=== PATIENT | male | born 1950 | race Caucasian/White ===

== ENCOUNTER 2020-10-04 14:12 | Outpatient (REF) | payer MEDICARE, SELFPAY ==
[2020-10-04 14:51] LABS: Creatinine Urine 184.29 mg/dL; Microalbum/Creatinine Ratio Ur 6.5 ug/mg cr
== END 2020-10-04 14:13 | disposition home or self-care (01) ==
LOC: HO.LNP 14:12
PROVIDERS: Visit Provider Family Medicine
DX: Z00.00 Encounter for general adult medical examination without abnormal findings (principal); E78.5 Hyperlipidemia, unspecified; L57.0 Actinic keratosis; R41.3 Other amnesia; Z12.5 Encounter for screening for malignant neoplasm of prostate
CPT/HCPCS: 82043

== ENCOUNTER → 2020-11-22 09:09 | Outpatient (BNVA) | payer MEDICARE, SELFPAY | PROVIDERS: PCP Family Medicine; Visit Provider Physician Assistant | DX: Z12.11 Encounter for screening for malignant neoplasm of colon (principal) | CPT/HCPCS: Q3014 ==

== ENCOUNTER 2021-01-15 11:52 | Outpatient (REF) | payer MEDICARE, SELFPAY ==
[2021-01-15 12:59] LABS: Creatinine Urine 172.25 mg/dL; Microalbum/Creatinine Ratio Ur 7.5 ug/mg cr
== END 2021-01-15 11:53 | disposition home or self-care (01) ==
LOC: HO.LNP 11:52
PROVIDERS: Visit Provider Family Medicine
DX: E11.9 Type 2 diabetes mellitus without complications (principal); I10 Essential (primary) hypertension
CPT/HCPCS: 82043

== ENCOUNTER 2021-01-17 07:45 | Day surgery (SDC) | payer MEDICARE, SELFPAY ==
[2021-01-11 09:52] VITALS: BMI 32.6
--- NOTE | 2021-01-17 08:56 | P.CONAN_ITS ---
HPI - Anesthesia Eval Consult details Narrative: 70 year old patient for EGD and Colonoscopy PMF Active Problems Active Problems: All Active Problems (Updated 01/16/21 @ 11:49 by Erica Crump RN) Essential hypertension (Acute) Diabetes type 2, controlled (Acute) Hyperlipidemia (Acute) Laboratory examination ordered as part of a routine general medical examination (Acute) Screening for prostate cancer (Acute) Actinic keratosis (Acute) Memory changes (Acute) Screening for colon cancer (Acute) Adult general medical exam (Acute) Past Medical History Medical History Diabetes Elevated cholesterol Encounter for screening GERD (gastroesophageal reflux disease) HTN (hypertension) Family History Family History Mother Lung cancer Family history of problems with anesthesia: No Surgical History Surgical History H/O colonoscopy History of appendectomy History of Problems with Anesthesia: No Social History Social History Household Members: Spouse Smoking Status: Never smoker Advance Directives Information Provided: No Current occupational status: retired Current occupation: [employer] Allergies Allergy/AdvReac Type Severity Reaction Status Date / Time No Known Allergies Allergy Verified 01/17/21 09:08 Home Medications Medication Instructions Recorded Confirmed Last Taken Type aspirin 81 mg tablet,delayed 81 mg PO DAILY 10/04/20 01/11/21 Unknown History release flu vacc [id number](65yr up)-PF 240 ml IM 10/04/20 11/22/20 Unknown History mcg/0.7 mL intramuscular syringe metformin 500 mg tablet,extended 1,000 mg PO BID 10/04/20 01/11/21 Unknown History release 24 hr pen needle, diabetic 31 gauge x #1200 ea 10/04/20 11/22/20 Unknown History /16 famotidine 20 mg tablet 20 mg PO BEDTIME 10/17/20 01/11/21 Unknown History multivitamin 1 tab PO DAILY 01/15/21 Unknown History Exam Exam Date and Time: January 17, 2021 0856 Height,Weight and Vital Signs: Height 5 ft 10 in Weight 103.192 kg Vital Signs Temp Pulse Resp BP Pulse Ox 01/17/21 09:09 97.6 F 85 16 150/82 H 96 Pertinent Lab Results Pertinent Lab Results: Lab Results 01/17/21 Range/Units 09:15 POC Glucose 122 H (60-115) mg/dL Airway Mallampati Class: II TM Dist: >3cm Neck ROM: Full Denture: Upper and Lower Heart: RRR Lungs: CTAB Assessment and Plan Assessment Anesthesia Assessment: Anesthesia Plan Discussed and Chart Reviewed Final Anesthetic Review NPO: Yes ASA Class: II Final Preanesthetic Review: No Changes in Pt Med Stat, Meds/Allgs Chart Revie wed, Consent Obtained/Reviewed and Anes Risks/Benef Reviewed Patient Risk: Intermediate Procedure Risk: Low Assessment/Block/Sedation in SS: Assess/Block/Sedation-SS Anesthetic Plan Anesthetic Plan: MAC: Disposition: Standard PACU
[2021-01-17 09:09] VITALS: BP 150/82; PULSE 85; RESP 16; TEMP 36.4; O2SAT 96
[2021-01-17] MEDS: Lactated Ringers 1,000 ML 100 ML IVCONT (09:16)
[2021-01-17 09:17] LABS: Glucose, Whole Blood 122 mg/dL (60-115)
--- NOTE | 2021-01-17 09:19 | MHC.SHP ---
Pre-Procedural Eval Section B Chief Complaint: screening,barretts Relevant Family History (Specify if Yes): No Relevant Social History: None Present Medications: see Short Stay Collaborative assessment Medical History: Significant History (Diabetes Elevated cholesterol Encounter for screening GERD (gastroesophageal reflux disease) HTN (hypertension)) History of Previous Operations: Relevant previous surgery/procedure and date(s) (appendectomy) Allergies: Allergies Allergy/AdvReac Type Severity Reaction Status Date / Time No Known Allergies Allergy Verified 01/17/21 09:08 Review of Systems Sugical H&P ROS: Negative: Constitution, Cardiovascular, Respiratory, Neurological, Psychiatric, Hem-Onc, Allergic/Immunologic, Gastrointestinal, Genitourinary, Musculoskeletal, Integumentary, Endocrine and Eyes/Ears/Nose/Throat Exam Surgical H&P Exam: Normal: HEENT, Normal: Heart, Normal: Lungs, Normal: Extremities, Normal: Abdomen, Normal: Skin and Normal: Neurological Plan Diagnosis/Plan: Unchanged I have reviewed the history and physical and performed a pertinent physical examination on my patient. No changes have occurred unless specified.
--- NOTE | 2021-01-17 09:38 | PM.OP ---
Brief Operative Note Date of Service: 01/17/21 Pre-op diagnosis: gerd, colon screen Post-op diagnosis: same Procedure: see op note Surgeon: Drake Giraldo MD Anesthesia: MAC Estimated blood loss (mL): 0 Condition: stable Disposition: PACU
--- NOTE | 2021-01-17 09:45 | W.PM.OPN ---
Operative Note Operative Note Date of Service: 01/17/21 Narrative: Operative Information Procedure Description: EGD, Colonoscopy FLEXIBLE TRANSORAL UPPER GASTROINTESTINAL ENDOSCOPY AND COLONOSCOPY PROCEDURE NOTE UPPER ENDOSCOPY Consent: Indications for the procedure and potential complications of bleeding, perforation, reaction to medications and missed diagnosis were discussed with the patient and informed consent was obtained. Instrument: Olympus GIF H 190 J mid size upper endoscope Monitoring: Vital signs and clinical assessment, continuous EKG monitoring, Pulse oximetry, Carbon Dioxide monitoring and blood pressure monitoring were done throughout the procedure. Procedure: The patient was placed in the left lateral decubitis position and pre-procedure medications were administered and a bite block was placed. The endoscope was inserted into the mouth and advanced under direct vision to the third part of duodenum. A careful inspection was made as the upper endoscope was withdrawn including a retroflexed examination of the proximal stomach; Findings and interventions are described below. Findings: Larynx:normal Esophagus: GE junction at 38 cm, diaphragm hiatus at 38 cm, normal mucosa Stomach: Erosive gastritis at antrum with granular mucosa. Biopsies were obtained. Grade 2 flap valve on retroflexed examination of the cardia. Duodenum: extensive moderate severe erosive duodenitis extending into second part of duodenum Intervention: Biopsies as noted above COLONOSCOPY Instrument: Olympus variable stiffness pediatric scope 190L Colonoscopy Monitoring: Vital signs and clinical assessment, continuous EKG monitoring, Pulse oximetry, Carbon Dioxide monitoring and blood pressure monitoring were done throughout the procedure. Colon withdrawal time was 12 minutes. Procedure: The patient was placed in the left lateral decubitis position and pre-procedure medications were administered. After a digital rectal examination of the ano-rectum, the video colonoscope was inserted into the rectum and advanced through the colon to the cecum/TI. The colonoscope was slowly withdrawn in a retrograde panoramic fashion and the colon mucosa was carefully examined including a retroflexed view of the rectum. Findings and interventions are described below. Procedure Difficulty:moderate, pressure applied using 2 people to mid abdomen and RLQ Findings: Terminal Ileum-not intubated due to looping Cecum:normal Ascending Colon: x 2 sessile polyps removed size from 5-11 mm, x 1 removed with cold snare and x 1 with forceps Transverse Colon -normal Descending Colon:normal Sigmoid Colon: x 3 sessile polyps 9-10 mm removed with cold snare Rectum: Retroflexion with small internal hemorrhoids, grade I Anorectum - normal Colon preparation: [place] Bowel Preparation Scale Right colon; 2 Transverse colon: 2 Left colon; 1 (0 = Unprepared colon segment with mucosa not seen due to solid stool that cannot be cleared. 1 = Portion of mucosa of the colon segment seen, but other areas of the colon segment not well seen due to staining, residual stool and/or opaque liquid. 2 = Minor amount of residual staining, small fragments of stool and/or opaque liquid, but mucosa of colon segment seen well. 3 = Entire mucosa of colon segment seen well with no residual staining, small fragments of stool or opaque liquid) Impression and Post Procedure Diagnosis: Endoscopy Findings: erosive gastritis erosive duodenitis Colonoscopy Findings: polyps internal hemorrhoids Plan: Await Pathology results Repeat Colonoscopy in 1-2 years due to prep or earlier if clinically indicated High fiber diet leaflet avoid straining at stool, epsom salts and sitz bath, anusol supps or cream as needed gastric damage maybe from aspirin, if h pylori pos will treat, meantime change famotidine to pantoprazole 20 mg daily Above findings were reviewed with the patient and relevant handouts were provided if indicated.
[2021-01-17 10:25] VITALS: BP 109/68; PULSE 73; RESP 16; TEMP 36.5; O2SAT 99
[2021-01-17 10:45] VITALS: BP 116/61; PULSE 81; RESP 20; O2SAT 95
[2021-01-17 11:00] VITALS: BP 129/73; PULSE 80; RESP 20; O2SAT 95
[2021-01-17 11:15] VITALS: BP 129/73; PULSE 80; RESP 20; TEMP 36.1; O2SAT 95
== END 2021-01-17 11:35 | disposition home or self-care (01) ==
PROVIDERS: PCP Family Medicine; Visit Provider Internal Medicine Gastroenterology
PROC: (CPT 45385; principal; 2021-01-17 09:10)
DX: Z12.11 Encounter for screening for malignant neoplasm of colon (principal); Z86.010 Personal history of colon polyps; D12.2 Benign neoplasm of ascending colon; D12.5 Benign neoplasm of sigmoid colon; K64.0 First degree hemorrhoids; K22.70 Barrett's esophagus without dysplasia; K29.50 Unspecified chronic gastritis without bleeding; B96.81 Helicobacter pylori [H. pylori] as the cause of diseases classified elsewhere; K29.80 Duodenitis without bleeding; K44.9 Diaphragmatic hernia without obstruction or gangrene; K21.9 Gastro-esophageal reflux disease without esophagitis; I10 Essential (primary) hypertension; E11.9 Type 2 diabetes mellitus without complications; Z79.4 Long term (current) use of insulin; Z79.82 Long term (current) use of aspirin; Z79.899 Other long term (current) drug therapy
CPT/HCPCS: 45385; 45380; 43239; 82947; 88305; 88342

== ENCOUNTER → 2021-02-07 10:43 | Outpatient (BNVA) | payer MEDICARE, SELFPAY | PROVIDERS: Visit Provider Physician Assistant | DX: D12.6 Benign neoplasm of colon, unspecified (principal); A04.8 Other specified bacterial intestinal infections; D36.9 Benign neoplasm, unspecified site | CPT/HCPCS: 99212 ==

== ENCOUNTER 2021-03-12 09:19 | Outpatient (REF) | payer MEDICARE, SELFPAY | END 2021-03-12 09:20 | disposition home or self-care (01) | LOC: HO.WFDLDS 09:19 | PROVIDERS: Visit Provider Physician Assistant | DX: A04.8 Other specified bacterial intestinal infections (principal) | CPT/HCPCS: 87338 ==

== ENCOUNTER 2021-04-11 08:25 | Outpatient (REF) | payer MEDICARE, SELFPAY ==
[2021-04-11 11:29] LABS: Estimated Average Glucose 157 mg/dL; Hemoglobin A1c % 7.1 %
[2021-04-11 11:45] LABS: Alanine Aminotransferase 27 U/L (0-40); Albumin Level 4.4 g/dL (3.5-5.0); Alkaline Phosphatase 49 U/L (39-117); Anion Gap 13 (12-20); Aspartate Amino Transferase 23 U/L (5-37); Bilirubin Total 1.1 mg/dL (0.0-1.0); Blood Urea Nitrogen 24 mg/dL (9-16); Calcium 9.5 mg/dL (8.4-10.2); Carbon Dioxide 29 mmol/L (22-29); Chloride 102 mmol/L (96-108); Estimated Glomerular Filt Rate > 60; Glucose Fasting 180 mg/dL (60-99); Potassium 4.4 mmol/L (3.3-5.1); Sodium 140 mmol/L (135-145); Total Protein 6.6 g/dL (6.5-8.0)
== END 2021-04-11 08:26 | disposition home or self-care (01) ==
LOC: HO.WFDLDS 08:25
PROVIDERS: Visit Provider Family Medicine
DX: Z00.00 Encounter for general adult medical examination without abnormal findings (principal); E11.9 Type 2 diabetes mellitus without complications
CPT/HCPCS: 36415; 80053; 83036

== ENCOUNTER 2021-10-21 07:02 | Outpatient (REF) | payer MEDICARE, SELFPAY ==
--- NOTE | ~2021-10-21 | XR_ITS ---
EXAMINATION: RIGHT SHOULDER, RIGHT HUMERUS AND RIGHT ELBOW X-RAYS CLINICAL INFORMATION: Right elbow pain. COMPARISON: None TECHNIQUE: 4 views of the right shoulder, 2 views of the right humerus and 3 views of the right elbow. FINDINGS: RIGHT SHOULDER: Bone alignment is normal. No acute fracture or dislocation is seen. The glenohumeral joint is normal. There is mild arthritis at the acromioclavicular joint. Soft tissues are normal. There is an old right fifth rib fracture. Right humerus: Bone alignment is normal. No fracture or dislocation is seen. Joint spaces and soft tissues are normal. Right elbow: Bone alignment is normal. No fracture or dislocation is seen. The joint spaces are normal. There is no joint effusion. There is an osteophyte projecting off the medial humeral epicondyle questionable for old epicondylitis. XR/XR elbow RT 2V IMPRESSION: No acute fracture or dislocation seen. Mild arthritis at the acromioclavicular joint. Osteophyte projecting off the medial humeral epicondyle questionable for evidence of old epicondylitis.
--- NOTE | ~2021-10-21 | XR_ITS ---
EXAMINATION: XR CHEST CLINICAL INFORMATION: Other abnormalities of breathing COMPARISON: None TECHNIQUE: 2 views of the chest were obtained. FINDINGS: The cardiac and mediastinal contours are normal. The lung volumes are low. The lungs are clear. There is no pleural effusion or pneumothorax. There are degenerative changes of the spine. There is an old right fifth rib fracture. XR/XR chest 2V IMPRESSION: Low lung volumes. No evidence for acute disease in the chest.
--- NOTE | ~2021-10-21 | XR_ITS ---
EXAMINATION: RIGHT SHOULDER, RIGHT HUMERUS AND RIGHT ELBOW X-RAYS CLINICAL INFORMATION: Right elbow pain. COMPARISON: None TECHNIQUE: 4 views of the right shoulder, 2 views of the right humerus and 3 views of the right elbow. FINDINGS: RIGHT SHOULDER: Bone alignment is normal. No acute fracture or dislocation is seen. The glenohumeral joint is normal. There is mild arthritis at the acromioclavicular joint. Soft tissues are normal. There is an old right fifth rib fracture. Right humerus: Bone alignment is normal. No fracture or dislocation is seen. Joint spaces and soft tissues are normal. Right elbow: Bone alignment is normal. No fracture or dislocation is seen. The joint spaces are normal. There is no joint effusion. There is an osteophyte projecting off the medial humeral epicondyle questionable for old epicondylitis. XR/XR humerus RT IMPRESSION: No acute fracture or dislocation seen. Mild arthritis at the acromioclavicular joint. Osteophyte projecting off the medial humeral epicondyle questionable for evidence of old epicondylitis.
--- NOTE | ~2021-10-21 | XR_ITS ---
EXAMINATION: RIGHT SHOULDER, RIGHT HUMERUS AND RIGHT ELBOW X-RAYS CLINICAL INFORMATION: Right elbow pain. COMPARISON: None TECHNIQUE: 4 views of the right shoulder, 2 views of the right humerus and 3 views of the right elbow. FINDINGS: RIGHT SHOULDER: Bone alignment is normal. No acute fracture or dislocation is seen. The glenohumeral joint is normal. There is mild arthritis at the acromioclavicular joint. Soft tissues are normal. There is an old right fifth rib fracture. Right humerus: Bone alignment is normal. No fracture or dislocation is seen. Joint spaces and soft tissues are normal. Right elbow: Bone alignment is normal. No fracture or dislocation is seen. The joint spaces are normal. There is no joint effusion. There is an osteophyte projecting off the medial humeral epicondyle questionable for old epicondylitis. XR/XR shoulder RT min 2V IMPRESSION: No acute fracture or dislocation seen. Mild arthritis at the acromioclavicular joint. Osteophyte projecting off the medial humeral epicondyle questionable for evidence of old epicondylitis.
[2021-10-21 12:06] LABS: Estimated Average Glucose 154 mg/dL
[2021-10-21 12:18] LABS: Alanine Aminotransferase 25 U/L (0-40); Albumin Level 4.3 g/dL (3.5-5.0); Alkaline Phosphatase 50 U/L (39-117); Anion Gap 14 (12-20); Aspartate Amino Transferase 19 U/L (5-37); Bilirubin Total 1.1 mg/dL (0.0-1.0); Blood Urea Nitrogen 21 mg/dL (9-16); Calcium 9.4 mg/dL (8.4-10.2); Carbon Dioxide 28 mmol/L (22-29); Chloride 102 mmol/L (96-108); Cholesterol 131 mg/dL; Estimated Glomerular Filt Rate > 60; Glucose Fasting 159 mg/dL (60-99); HDL Cholesterol 36 mg/dL; LDL Cholesterol Calculated 61 mg/dl; Potassium 4.2 mmol/L (3.3-5.1); Sodium 140 mmol/L (135-145); Total Protein 6.6 g/dL (6.5-8.0); Triglycerides 171 mg/dL
[2021-10-21 12:41] LABS: PSA,Total (Free>4and<10) 3.16 ng/mL (0.00-4.00); TSH reflex Free T4 2.01 uIU/mL (0.32-4.0)
== END 2021-10-21 07:03 | disposition home or self-care (01) ==
LOC: HO.WFDLDS 07:02
PROVIDERS: PCP Family Medicine; Visit Provider Family Medicine
DX: Z00.00 Encounter for general adult medical examination without abnormal findings (principal); Z12.5 Encounter for screening for malignant neoplasm of prostate; R73.01 Impaired fasting glucose; M25.511 Pain in right shoulder; M25.521 Pain in right elbow; M79.601 Pain in right arm; R06.89 Other abnormalities of breathing
CPT/HCPCS: 36415; 71046; 73030; 73060; 73070; 80053; 80061; 83036; 84153; 84443

== ENCOUNTER 2021-12-10 08:00 | Outpatient (RCR) | payer MEDICARE, SELFPAY ==
--- NOTE | 2021-10-23 14:29 | MHC.PT.EP ---
[facility] [place] Office [place] Office [place] Office [address] [place] [address] Dr Michael Cad[address] [phone] F: [phone] F: [phone] F: [phone] F: [phone] Physical Therapy Plan of Care Date of Evaluation: Date of Surgery: NA Diagnosis: R ARM PAIN Assessment: Pt IS 71 YO RHD M REFERRED TO PT FROM DR PRITCHARD WITH R UPPER ARM PAIN S/P FALL>2 MONTHS AGO (TRIPPED ON LAST 2 STEPS OVER CAT). INITIALLY BRUISING (HEALED) WITH REPORT OF DECREASE IN PAIN SINCE TIME OF INCIDENT. Pt REPORTS MOST DIFFICULTY LAYING (TO SLEEP) ON R SIDE AND PUTTING JACKET ON. PRESENTS WITH LIMITED ROM AND STRENGTH IN R UE WITH TTP. Pt WITH ROUND SHLDER POSTURE. RELIEF WITH MH AND SHLDER DURING SESSION. SHOULD BENEFIT FROM PT TO HELP DECREASE PAIN AND IMPROVE ROM/STRENGTH WITH HOME PROGRAM AND ST WORK Frequency and Duration: The patient will be seen 2X/WK X 6 WKS Short Term Goals: 1. INCREASED POSTURE AWARENESS AND AWARENESS SHLDER CARE 2. IMPROVED TOLERANCE TO SIDELYING ON R 3. Pt ABLE TO SEYM[place]/DOFF JACKET WITH LESS PAIN ON R (MODIFICATION NEEDED) [employer] Goals: 1. I HEP WITH DC EX PLAN 2. INCREASED R SHLDER ROM 10-20 DEGREES T/O 3. INCREASED STRENGTH 1/2 MM GRADE R SHLDER FLEX AND ABD 4. DECREASED R SHLDER/UPPER ARM PAIN AT LEAST 50% WITH ADLS Treatment Plan: Modalities to reduce pain, spasms and effusion. Manual therapy to restore motion and function. Therapeutic exercise to improve strength and flexibility. Neuromuscular re-education for posture and balance. Therapeutic activities to return to functional activities of daily living. Electronically signed by: DIANA MERCER PT Please sign and return to therapist. Thank you for your referral.
--- NOTE | 2021-12-11 13:00 | MHC.PT.DC ---
[facility] [place] [facility] [place] Office [place] Office [address] [phone] F: [phone] F: [phone] F: [phone] F: [phone] Physical Therapy Discharge Report Diagnosis: R ARM PAIN Date of Surgery: NA Date of Evaluation: 10/23/21 Date of Discharge: 12/11/21 Treatments to Date: 11 Cancellations to Date: No Shows to Date: Discharge Status: Achieved Goals Improved Function Independent with HEP Discharge Summary: PER LAST NOTE FROM 12/10/21 PER ILENE VEE PT,DPT:'Pt has met all STG/LTG with the therapy at this time. D/C pt to I HEP. Pt denies pain in recent days. AROM flexion 140, AROM abd 120, ER to C7, IR to midline L3 no sx. Pt has not immediate follow up with PCP.' Electronically signed by: DIANA MERCER PT Please sign and return to therapist. Thank you for your referral.
== END 2021-12-11 13:01 | disposition home or self-care (01) ==
LOC: HO.PTWFD 08:00
PROVIDERS: Visit Provider Family Medicine
DX: M79.601 Pain in right arm (principal)
CPT/HCPCS: 97110; 97140; 97161; 97535

== ENCOUNTER 2022-05-01 07:05 | Outpatient (REF) | payer MEDICARE, SELFPAY ==
[2022-05-01 11:09] LABS: MANUAL DIFF FLAG NO
[2022-05-01 11:25] LABS: Basophils Absolute Auto 0.1 X10*3/uL (0.0-0.2); Basophils Percent Auto 0.7 % (0-2); Eosinophils Absolute Auto 0.2 X10*3/uL (0.0-0.4); Eosinophils Percent Auto 2.7 % (0-4); Hemoglobin 16.1 g/dl (14.0-18.0); Imm Gran Abs Auto 0.06 X10*3/uL (0.00-0.03); Imm Gran Pct Auto 0.8 % (0.0-0.4); Lymphocytes Absolute Auto 1.8 X10*3/uL (1.2-4.9); Mean Corpuscular HGB Conc 33.5 g/dl (31.0-36.0); Mean Corpuscular Hemoglobin 31.1 pg (27.0-33.0); Mean Corpuscular Volume 92.7 fL (80.0-98.0); Mean Platelet Volume 9.4 fL (9.4-12.4); Monocytes Absolute Auto 0.5 X10*3/uL (0.1-1.2); Monocytes Percent Auto 6.9 % (2-11); Neutrophils Absolute Auto 4.9 x10*3/uL (2.0-8.3); Neutrophils Percent Auto 64.9 % (45-73); Platelet Count 191 X10*3/uL (160-400); Red Blood Count 5.18 X10*6/uL (4.60-5.80); White Blood Count 7.5 X10*3/uL (4.8-10.8)
[2022-05-01 11:58] LABS: TSH reflex Free T4 1.78 uIU/mL (0.32-4.0)
[2022-05-01 11:59] LABS: Alanine Aminotransferase 31 U/L (0-40); Albumin Level 4.3 g/dL (3.5-5.0); Alkaline Phosphatase 58 U/L (39-117); Anion Gap 13 (12-20); Aspartate Amino Transferase 27 U/L (5-37); Bilirubin Total 0.9 mg/dL (0.0-1.0); Blood Urea Nitrogen 21 mg/dL (9-16); Calcium 9.3 mg/dL (8.4-10.2); Carbon Dioxide 28 mmol/L (22-29); Chloride 104 mmol/L (96-108); Estimated Glomerular Filt Rate > 60; Glucose Random 115 mg/dL (60-115); Iron 100 mcg/dL (45-160); Percent Iron Saturation 30 % (15-50); Potassium 4.2 mmol/L (3.3-5.1); Sodium 141 mmol/L (135-145); Total Iron Binding Capacity 332 mcg/dL (228-428); Total Protein 6.8 g/dL (6.5-8.0); Unsaturated Iron Binding 232 ug/dL
== END 2022-05-01 07:06 | disposition home or self-care (01) ==
LOC: HO.WFDLDS 07:05
PROVIDERS: Visit Provider Family Medicine
DX: Z00.00 Encounter for general adult medical examination without abnormal findings (principal); R53.83 Other fatigue
CPT/HCPCS: 36415; 80053; 83540; 84443; 85025

== ENCOUNTER → 2022-07-16 09:43 | Outpatient (BNVA) | payer MEDICARE, SELFPAY | PROVIDERS: PCP Family Medicine; Visit Provider Nurse Practitioner Family | DX: G47.10 Hypersomnia, unspecified (principal); R06.83 Snoring | CPT/HCPCS: 99202 ==

== ENCOUNTER → 2022-08-11 08:49 | Outpatient (REF) | payer MEDICARE, SELFPAY | LOC: HO.SL 08:49 | PROVIDERS: PCP Family Medicine; Visit Provider Nurse Practitioner Family | DX: G47.33 Obstructive sleep apnea (adult) (pediatric) (principal); G47.10 Hypersomnia, unspecified; R06.83 Snoring | CPT/HCPCS: 95806 ==

== ENCOUNTER → 2022-09-15 08:44 | Outpatient (BNVA) | payer MEDICARE, SELFPAY | PROVIDERS: PCP Family Medicine; Visit Provider Nurse Practitioner Family | DX: G47.33 Obstructive sleep apnea (adult) (pediatric) (principal) | CPT/HCPCS: 99212 ==

== ENCOUNTER → 2022-09-28 19:27 | Outpatient (REF) | payer MEDICARE, SELFPAY | LOC: HO.SL 19:27 | PROVIDERS: PCP Family Medicine; Visit Provider Nurse Practitioner Family | DX: Z13.89 Encounter for screening for other disorder (principal) ==

== ENCOUNTER → 2022-11-24 07:44 | Outpatient (BNVA) | payer MEDICARE, SELFPAY | PROVIDERS: PCP Family Medicine; Visit Provider Nurse Practitioner Family | DX: G47.33 Obstructive sleep apnea (adult) (pediatric) (principal) | CPT/HCPCS: 99212 ==

== ENCOUNTER 2023-02-12 07:23 | Day surgery (SDC) | payer MEDICARE, SELFPAY ==
--- NOTE | 2023-02-11 11:47 | HO.ANESPROP2 ---
Documented by User: Yael Nixon NP 02/11/23 11:47 HPI - Anesthesia Eval Consult details Narrative: 72yo M for Colonoscopy PMFSH Active Problems Active Problems: All Active Problems (Updated 02/09/23 @ 09:47 by Komal Baker RN) Essential hypertension (Acute) Diabetes type 2, controlled (Acute) Hyperlipidemia (Acute) Laboratory examination ordered as part of a routine general medical examination (Acute) Screening for prostate cancer (Acute) Actinic keratosis (Acute) Memory changes (Acute) Screening for colon cancer (Acute) Adult general medical exam (Acute) Tubulovillous adenoma (Acute) H. pylori infection (Acute) Tubular adenoma of colon (Acute) Sleep apnea (Acute) Right shoulder pain (Acute) Right elbow pain (Acute) Abnormal breath sounds (Acute) Low HDL (under 40) (Acute) Retinal hemorrhage, left (Acute) Cerumen impaction (Acute) Fatigue (Acute) Excessive sleepiness (Acute) Snoring (Acute) PAMELA (obstructive sleep apnea) (Acute) Injury of left toe (Acute) Avulsion of toenail of left foot (Acute) Immunization counseling (Acute) Past Medical History Medical History Diabetes Elevated cholesterol Encounter for screening GERD (gastroesophageal reflux disease) HTN (hypertension) Sleep apnea Family History Family History Mother Lung cancer Family history of problems with anesthesia: No Surgical History Surgical History H/O colonoscopy History of appendectomy History of endoscopy Status post right foot surgery History of Problems with Anesthesia: No Social History Social History Household Members: Spouse Housing: Condominium Alcohol intake: current Alcohol intake frequency: does not drink Patient Tobacco Use Status: Never used Tobacco e-Cigarette/Vaping Use: Never Used Second Hand Smoke Exposure: No Use of substances other than those prescribed or required for medical reasons: No Are you DNR?: Yes Advance Directives: No Advance Directives Information Provided: Yes service: No 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 occupational exposures/hazards: No Cognitive needs: No Hearing needs: Yes (Hearing aides) Vision needs: No Meds Allergies Allergy/AdvReac Type Severity Reaction Status Date / Time No Known Allergies Allergy Verified 02/12/23 08:06 Home Medications Medication Instructions Recorded Confirmed Last Taken Type aspirin 81 mg tablet,delayed 81 mg PO DAILY 10/04/20 02/12/23 02/08/23 History release (Adult Low Dose Aspirin) multivitamin 1 tab PO DAILY 01/15/21 02/12/23 Unknown History metronidazole 0.75 % topical cream 1 appl topical DAILY PRN Skin 09/15/22 02/12/23 Unknown History Irritation insulin glargine 100 unit/mL (3 44 unit subcut QAM 11/24/22 02/12/23 02/11/23 05:00 History mL) subcutaneous pen (Lantus 44 units Solostar U-100 Insulin) Exam Exam Date and Time: February 11, 2023 1147 Assessment and Plan Assessment Anesthesia Assessment: Chart Reviewed Final Anesthetic Review Family History of Problems with Anesthesia: No History of Problems with Anesthesia: No Documented by User: Linn Overton MD 02/12/23 09:27 [facility] Active Problems Active Problems: All Active Problems (Updated 02/09/23 @ 09:47 by Komal Baker RN) Essential hypertension (Acute) Diabetes type 2, controlled (Acute) Hyperlipidemia (Acute) Laboratory examination ordered as part of a routine general medical examination (Acute) Screening for prostate cancer (Acute) Actinic keratosis (Acute) Memory changes (Acute) Screening for colon cancer (Acute) Adult general medical exam (Acute) Tubulovillous adenoma (Acute) H. pylori infection (Acute) Tubular adenoma of colon (Acute) Sleep apnea (Acute) Right shoulder pain (Acute) Right elbow pain (Acute) Abnormal breath sounds (Acute) Low HDL (under 40) (Acute) Retinal hemorrhage, left (Acute) Cerumen impaction (Acute) Fatigue (Acute) Excessive sleepiness (Acute) Snoring (Acute) Severe PAMELA (obstructive sleep apnea). Doing well with CPAP machine Injury of left toe (Acute) Avulsion of toenail of left foot (Acute) Immunization counseling (Acute) Past Medical History Medical History Diabetes Elevated cholesterol Encounter for screening GERD (gastroesophageal reflux disease) HTN (hypertension) Sleep apnea Family History Family History Mother Lung cancer Surgical History Surgical History H/O colonoscopy History of appendectomy History of endoscopy Status post right foot surgery Social History Social History Household Members: [facility] Alcohol intake: current Alcohol intake frequency: does not drink Patient Tobacco Use Status: Never used Tobacco e-Cigarette/Vaping Use: Never Used Second Hand Smoke Exposure: No Use of substances other than those prescribed or required for medical reasons: No Are you DNR?: Yes Advance Directives: No Advance Directives Information Provided: Yes service: No 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 occupational exposures/hazards: No Cognitive needs: No Hearing needs: Yes (Hearing aides) Vision needs: No Meds Allergies Allergy/AdvReac Type Severity Reaction Status Date / Time No Known Allergies Allergy Verified 02/12/23 08:06 Home Medications Medication Instructions Recorded Confirmed Last Taken Type aspirin 81 mg tablet,delayed 81 mg PO DAILY 10/04/20 02/12/23 02/08/23 History release (Adult Low Dose Aspirin) multivitamin 1 tab PO DAILY 01/15/21 02/12/23 Unknown History metronidazole 0.75 % topical cream 1 appl topical DAILY PRN Skin 09/15/22 02/12/23 Unknown History Irritation insulin glargine 100 unit/mL (3 44 unit subcut QAM 11/24/22 02/12/23 02/11/23 05:00 History mL) subcutaneous pen (Lantus 44 units Solostar U-100 Insulin) Exam Height,Weight and Vital Signs: Height 5 ft 10 in Weight 103.419 kg Vital Signs Temp Pulse Resp BP Pulse Ox O2 Del Method 02/12/23 08:19 98.2 F 82 16 130/64 96 Room Air Pertinent Lab Results Pertinent Lab Results: Lab Results 02/12/23 Range/Units 08:14 POC Glucose 179 H (60-115) mg/dL Airway Mallampati Class: II TM Dist: >3cm Neck ROM: Full Denture: Upper and Lower Heart: RRR Lungs: CTAB Assessment and Plan Assessment Anesthesia Assessment: Anesthesia Plan Discussed Final Anesthetic Review NPO: Yes ASA Class: III Final Preanesthetic Review: No Changes in Pt Med Stat, Meds/Allgs Chart Reviewed, Consent Obtained/Reviewed, Anes Risks/Benef Reviewed and DNR Form (If Appl.) (DNR order suspended [id number]-op) Patient Risk: Intermediate Procedure Risk: Low Assessment/Block/Sedation in SS: Assess/Block/Sedation-SS Anesthetic Plan Anesthetic Plan: MAC: Disposition: Standard PACU
[2023-02-12 08:10] VITALS: BMI 32.7
[2023-02-12 08:18] LABS: Glucose, Whole Blood 179 mg/dL (60-115)
[2023-02-12 08:19] VITALS: BP 130/64; PULSE 82; RESP 16; TEMP 36.8; O2SAT 96
[2023-02-12] MEDS: Lactated Ringers 1,000 ML 100 ML IVCONT (08:26)
--- NOTE | 2023-02-12 09:16 | MHC.SHP ---
Pre-Procedural Eval Section A Date of Service: 02/12/23 Section B Chief Complaint: screening Relevant Family History (Specify if Yes): No Relevant Social History: None Present Medications: see Short Stay Collaborative assessment Medical History: Significant History (Diabetes Elevated cholesterol Encounter for screening GERD (gastroesophageal reflux disease) HTN (hypertension) Sleep apnea) History of Previous Operations: Relevant previous surgery/procedure and date(s) (H/O colonoscopy History of appendectomy History of endoscopy Status post right foot surgery) Allergies: Allergies Allergy/AdvReac Type Severity Reaction Status Date / Time No Known Allergies Allergy Verified 02/12/23 08:06 Review of Systems Sugical H&P ROS: Negative: Constitution, Cardiovascular, Respiratory, Neurological, Psychiatric, Hem-Onc, Allergic/Immunologic, Gastrointestinal, Genitourinary, Musculoskeletal, Integumentary, Endocrine and Eyes/Ears/Nose/Throat Exam Surgical H&P Exam: Normal: HEENT, Normal: Heart, Normal: Lungs, Normal: Extremities, Normal: Abdomen, Normal: Skin and Normal: Neurological Plan Diagnosis/Plan: Unchanged I have reviewed the history and physical and performed a pertinent physical examination on my patient. No changes have occurred unless specified. Time Spent With Patient Time: Total time managing care of this patient today ____ minutes.
--- NOTE | 2023-02-12 09:17 | W.PM.OPN ---
Operative Note Operative Note Date of Service: 02/12/23 Narrative: Operative Information Procedure Description: Colonoscopy Indication: hx of polyps Anesthesia: MAC COLONOSCOPY Instrument: Olympus variable stiffness ADULT scope 190L Colonoscopy Monitoring: Vital signs and clinical assessment, continuous EKG monitoring, Pulse oximetry, Carbon Dioxide monitoring and blood pressure monitoring were done throughout the procedure. Colon withdrawal time was 10 minutes. Procedure: The patient was placed in the left lateral decubitis position and pre-procedure medications were administered. After a digital rectal examination of the ano-rectum, the video colonoscope was inserted into the rectum and advanced through the colon to the cecum/TI. The colonoscope was slowly withdrawn in a retrograde panoramic fashion and the colon mucosa was carefully examined including a retroflexed view of the rectum. Findings and interventions are described below. Procedure Difficulty:moderate, pressure applied using 2 people to mid abdomen and RLQ Findings: Terminal Ileum-not intubated due to looping Cecum:normal Ascending Colon: x 1 sessile polyp removed with cold forceps size from 5-7 mm Transverse Colon -normal Descending Colon: 7-8 mm sessile polyp removed with cold snare Sigmoid Colon: normal Rectum: Retroflexion with small internal hemorrhoids, grade I Anorectum - normal Colon preparation: Donalds Bowel Preparation Scale Right colon; 2 Transverse colon: 2 Left colon; 2 (0 = Unprepared colon segment with mucosa not seen due to solid stool that cannot be cleared. 1 = Portion of mucosa of the colon segment seen, but other areas of the colon segment not well seen due to staining, residual stool and/or opaque liquid. 2 = Minor amount of residual staining, small fragments of stool and/or opaque liquid, but mucosa of colon segment seen well. 3 = Entire mucosa of colon segment seen well with no residual staining, small fragments of stool or opaque liquid) Impression and Post Procedure Diagnosis: polyps internal hemorrhoids Plan: High fiber diet leaflet Avoid straining at stool, epsom salts and sitz bath, anusol supps or cream Repeat Colonoscopy in 3-4 years or earlier if clinically indicated Above findings were reviewed with the patient and relevant handouts were provided if indicated.
[2023-02-12 10:05] VITALS: BP 96/56; PULSE 72; RESP 18; TEMP 36.1; O2SAT 95
[2023-02-12 10:20] VITALS: BP 114/66; PULSE 84; RESP 18; TEMP 36.1; O2SAT 96
== END 2023-02-12 10:49 | disposition home or self-care (01) ==
PROVIDERS: PCP Family Medicine; Visit Provider Internal Medicine Gastroenterology
PROC: 0DJD8ZZ Inspection of Lower Intestinal Tract, Via Natural or Artificial Opening Endoscopic (ICD-10-PCS; CPT 45378; principal; 2023-02-12 09:20)
DX: Z12.11 Encounter for screening for malignant neoplasm of colon (principal); Z86.010 Personal history of colon polyps; D12.2 Benign neoplasm of ascending colon; D12.4 Benign neoplasm of descending colon; K64.0 First degree hemorrhoids; K21.9 Gastro-esophageal reflux disease without esophagitis; G47.33 Obstructive sleep apnea (adult) (pediatric); I10 Essential (primary) hypertension; E78.00 Pure hypercholesterolemia, unspecified; E11.9 Type 2 diabetes mellitus without complications; Z79.4 Long term (current) use of insulin; Z99.89 Dependence on other enabling machines and devices; Z79.82 Long term (current) use of aspirin
CPT/HCPCS: 45385; 45380; 82947; 88305

== ENCOUNTER 2023-02-19 07:12 | Outpatient (REF) | payer MEDICARE, SELFPAY ==
[2023-02-19 11:38] LABS: MANUAL DIFF FLAG NO
[2023-02-19 11:44] LABS: Basophils Percent Auto 0.4 % (0-2); Eosinophils Absolute Auto 0.2 X10*3/uL (0.0-0.4); Eosinophils Percent Auto 3.3 % (0-4); Hemoglobin 15.5 g/dl (14.0-18.0); Imm Gran Abs Auto 0.03 X10*3/uL (0.00-0.03); Imm Gran Pct Auto 0.4 % (0.0-0.4); Lymphocytes Absolute Auto 1.6 X10*3/uL (1.2-4.9); Lymphocytes Percent Auto 23.5 % (20-40); Mean Corpuscular Hemoglobin 30.5 pg (27.0-33.0); Mean Corpuscular Volume 92.5 fL (80.0-98.0); Mean Platelet Volume 9.5 fL (9.4-12.4); Monocytes Absolute Auto 0.4 X10*3/uL (0.1-1.2); Monocytes Percent Auto 6.4 % (2-11); Neutrophils Absolute Auto 4.4 x10*3/uL (2.0-8.3); Platelet Count 159 X10*3/uL (160-400); Red Blood Count 5.08 X10*6/uL (4.60-5.80); Red Cell Distribution Width 13.2 % (11.0-16.0); White Blood Count 6.7 X10*3/uL (4.8-10.8)
[2023-02-19 11:55] LABS: Appearance Urine Clear; Color Urine Yellow; Glucose Urine UA Negative (Negative); Leukocyte Esterase Urine Negative (Negative); Nitrite Urine Negative (Negative); PH 5.5 (5.0-9.0); Urine Blood Negative (Negative); Urine Ketones Negative (Negative); Urine Protein Negative (Neg-Trace)
[2023-02-19 12:14] LABS: Alanine Aminotransferase 21 U/L (0-40); Alkaline Phosphatase 54 U/L (39-117); Anion Gap 17 (12-20); Aspartate Amino Transferase 20 U/L (5-37); Bilirubin Total 1.4 mg/dL (0.0-1.0); Blood Urea Nitrogen 19 mg/dL (9-16); Calcium 9.1 mg/dL (8.4-10.2); Carbon Dioxide 24 mmol/L (22-29); Chloride 106 mmol/L (96-108); Cholesterol 123 mg/dL; Estimated Glomerular Filt Rate > 60; Glucose Fasting 146 mg/dL (60-99); HDL Cholesterol 37 mg/dL; LDL Cholesterol Calculated 64 mg/dl; Potassium 4.4 mmol/L (3.3-5.1); Sodium 143 mmol/L (135-145); Total Protein 6.1 g/dL (6.5-8.0); Triglycerides 110 mg/dL
[2023-02-19 12:19] LABS: Prostate Specific Antigen Scr 3.17 ng/mL (<0.05-4.0); TSH reflex Free T4 2.26 uIU/mL (0.32-4.0)
[2023-02-19 12:27] LABS: Creatinine Urine 132.33 mg/dL; Microalbum/Creatinine Ratio Ur 6.8 ug/mg cr
== END 2023-02-19 07:13 | disposition home or self-care (01) ==
LOC: HO.WFDLDS 07:12
PROVIDERS: Visit Provider Family Medicine
DX: Z00.00 Encounter for general adult medical examination without abnormal findings (principal); I10 Essential (primary) hypertension; Z12.5 Encounter for screening for malignant neoplasm of prostate
CPT/HCPCS: 36415; 80053; 80061; 81003; 82043; 84153; 84443; 85025

== ENCOUNTER → 2023-02-23 10:38 | Outpatient (BNVA) | payer MEDICARE, SELFPAY | PROVIDERS: PCP Family Medicine; Visit Provider Nurse Practitioner Family | DX: G47.33 Obstructive sleep apnea (adult) (pediatric) (principal); Z99.89 Dependence on other enabling machines and devices | CPT/HCPCS: 99212 ==

== ENCOUNTER 2023-02-27 10:51 | Outpatient (REF) | payer MEDICARE, SELFPAY ==
--- NOTE | ~2023-02-27 | XR_ITS ---
EXAMINATION: XR CHEST CLINICAL INFORMATION: Other specified symptoms and signs involving circulatory and respiratory system COMPARISON: Previous chest x-ray October 2021 TECHNIQUE: 2 views of the chest were obtained. FINDINGS: The cardiac and mediastinal contours are stable. The lung volumes are low. The lungs are clear.. No pleural effusion or pneumothorax. There are degenerative changes of the spine. Old right posterior lateral fifth rib fracture. XR/XR chest 2V IMPRESSION: Low lung volumes. No evidence for acute disease in the chest.
== END 2023-02-27 10:52 | disposition home or self-care (01) ==
LOC: HO.XRAY 10:51
PROVIDERS: PCP Family Medicine; Visit Provider Family Medicine
DX: R09.89 Other specified symptoms and signs involving the circulatory and respiratory systems (principal)
CPT/HCPCS: 71046

== ENCOUNTER 2023-05-28 08:18 | Outpatient (AMB) | payer MEDICARE, SELFPAY ==
[2023-05-28 08:51] VITALS: BP 124/64; PULSE 77; O2SAT 97
--- NOTE | 2023-05-28 08:51 | MHC.PC.OV ---
Vital Signs 05/28/23 08:51 Weight 233 lb 6 oz BP 124/64 Blood Pressure Location Lt brachial Position Sitting Pulse 77 Pulse Source Pulse Oximeter Pulse Oximetry (%) 97 Oxygen Delivery Method Room Air Intake Visit Reasons: follow up diabetes Intake Note: Patient is here to follow up on his diabetes. Patient would like a refill on Humalog and Lantus. Allergies No Known Allergies Allergy (Verified 05/28/23 08:52) Tobacco use date assessed: 05/28/23 Fall risk assessment: No Falls in past year Last assessed Fall Risk: 05/28/23 Dental Screening Dental Screen Date: 05/28/23 Did you have a dental visit in the last 12 months?: No Did you have a dental problem in the last 6 months where you did not have access to dental care?: No Was dental information given to patient?: No HPI follow up diabetes HPI Details 72 y/o male presents to f/u diabetes. Pt had some abnormal lung sounds and ordered a chest x-ray. Last A1c 02/25/23 6.2%. He is on insulin glargine 44 units, insulin lispro 10 units, and metformin 1000mg b.i.d. A1c today 05/28/23 is 6.5%. Pt reports morning blood sugars in the 130s or less. Chest x-ray 02/27/23 showed low lung volumes but no evidence for acute disease in the chest. Pt states his allergies have been bad. He is followed by [facility]. He reports allergies have been bad this year. HPI Comments History of Present Illness Details Documentation assistance for Poli Randolph MD, was provided by Jose Elias Bryan,? [employer] on 05/28/2023 9:32 AM EST. I, Dr. Randolph, have read, observed, and verified documentation.? 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 1. Little interest or pleasure in doing things: not at all 2. Feeling down, depressed, or hopeless: not at all 3. Trouble falling or staying asleep, or sleeping too much: not at all 4. Feeling tired or having little energy: not at all 5. Poor appetite or overeating: not at all 6. Feeling bad about yourself - or that you are a failure or have let yourself or your family down: not at all 7. Trouble concentrating on things, such as reading the newspaper or watching television: not at all 8. Moving or speaking so slowly that other people could have noticed. Or the opposite - being so fidgety or restless that you have been moving around a lot more than usual: not at all 9. Thoughts that you would be better off or of hurting yourself in some way: not at all Total score: 0 Source: Developed by Drs. Adrian Limon, Kimberley Zavala, Ramon Mackay and colleagues, with an educational balaji from [employer]. Thrive Questionnaire Date Thrive assessed: 11/26/22 I am a: Patient What is your living situation today?: I have a steady place to live Within the past 12 months, did the food you bought not last and you didn't have the money to get more?: Never true Within the past 12 months, did you worry whether your food would run out before you got money to buy more?: Never true Do you have trouble paying for medicines?: No Do you have trouble getting transportation to medical appointments?: No Do you have trouble paying your heating and electricity bill?: No Do you have trouble taking care of your child, family member or friend?: No Do you have trouble with day-to-day activities such as bathing, preparing meals, shopping, managing finances, etc.?: No Are you currently unemployed and looking for a job?: No Are you interested in more education?: No AUDIT C Alcohol Use Questionnaire (AUDIT-C) 1. How often do you have a drink containing alcohol?: Monthly or less 2. How many drinks containing alcohol do you have on a typical day when you are drinking?: 1 or 2 3. How often do you have six or more drinks on one occasion?: Never Total Score: 1 WILD-7 AMB Questionnaire WILD-7 Date WILD - 7 assessed: 11/26/22 Feeling nervous, anxious, or on edge: 0 = Not at all Not being able to stop or control worryin = Not at all Worrying too much about different things: 0 = Not at all Trouble relaxin = Not at all Being so restless that it is hard to sit still: 0 = Not at all Becoming easily annoyed or irritable: 0 = Not at all Feeling afraid as if something awful might happen: 0 = Not at all Total WILD-7 score (0-4 normal; 5-9 mild; 10-14 moderate; 15-21 severe): 0 Source: Developed by Drs. Adrian Limon, Kimberley Zavala, Ramon Mackay and colleagues, with an educational balaji from [employer]. Review of Systems Const Denies chills, Denies fatigue, Denies fever(s), Denies headache(s) and Denies weakness ENT Denies dizziness and Denies headache(s) Card Denies chest pain, Denies lightheadedness, Denies dyspnea and Denies other (Palpitations) Resp Denies cough, Denies dyspnea, Denies wheezing and Denies other ( shortness of breath) Musc Denies numbness and Denies tingling Neuro Denies dizziness, Denies headache(s), Denies numbness, Denies tingling, Denies paresthesias and Denies weakness Psych Denies anxiety and Denies depression Endo Denies fatigue Aller/Immun Denies wheezing Physical exam (Primary Care) Vital Signs: Last Vital Signs Pulse 77 05/28/23 08:51 BP 124/64 05/28/23 08:51 Pulse Ox 97 05/28/23 08:51 Oxygen Delivery Method Room Air 05/28/23 08:51 Tobacco/Smoking Status: Tobacco use Status Tobacco use date assessed 05/28/23 05/28/23 08:55 Patient Tobacco Use Status Never used Tobacco 05/28/23 08:55 e-Cigarette/Vaping Use Never Used 05/28/23 08:55 PHQ-9: PHQ-9 Score PHQ-9: Total score 0 05/28/23 09:24 Thrive Assessment: Date of Thrive Assessment Date Thrive assessed 11/26/22 05/28/23 08:55 Const General: no acute distress and well developed Nutritional Appearance: well nourished Orientation/consciousness: patient oriented x3 HENMT Head: Yes normocephalic and Yes atraumatic Eyes General: appearance normal, both eyes and all related structures Pupils: Equal, round and reactive pupils present EOM: EOMs intact bilaterally Resp Effort & Inspection: normal respiratory effort Auscultation: clear to auscultation bilaterally Cardio Rate: regular rate Rhythm: regular rhythm Heart sounds: S1 normal heart sound present, S2 normal heart sound present, no gallops, no murmurs and no rubs Neuro General: patient oriented x3 and gait normal Cranial nerves: Yes Equal, round and reactive pupils present Psych Affect: normal affect Results AMB Hemoglobin A1c AMB Hemoglobin A1c 6.5 % Last Edit by Patti Younger CMA on 05/28/23 09:16 Results Reviewed Results Reviewed: Laboratory Last Values Hgb A1c (Clinic) 6.5 % (4.0-6.0) H 05/28/23 09:15 Assessment and Plan Assessment & Plan (1) Diabetes type 2, controlled: Code(s): E11.9 - Type 2 diabetes mellitus without complications Plan: A1c 6.5% today. Well controlled. Goal is less than 7.0% Continue current Medication regimen Continue diabetic diet Encouraged exercise (2) Allergies: Code(s): T78.40XA - Allergy, unspecified, initial encounter Plan: Using opcon a eyedrops for allergies. Try pad a day instead Gave him a nasal steroid as well Orders: Orders AMB Hemoglobin A1c Today Z13.9 - Encounter for screening, unspecified Medications: New olopatadine 0.2% (Pataday Once Daily Relief) 1 drp ophthalmic (eye) QAM 30 days 2.5 mL 4RF fluticasone propionate 50 mcg/actuation (Flonase Allergy Relief) administer into each nostril 1 spray intranasal Q12H 30 days 16 grams 2RF olopatadine 0.2% (Pataday Once Daily Relief) 1 drp ophthalmic (eye) QAM 30 days 2.5 mL 4RF Coding Level of Care Code Est Pt Level 3 (15290) Diagnoses Diabetes type 2, controlled E11.9 Allergies T78.40XA
== END 2023-05-28 09:45 | disposition home or self-care (01) ==
PROVIDERS: Visit Provider Family Medicine
DX: E11.9 Type 2 diabetes mellitus without complications (principal); T78.40XA Allergy, unspecified, initial encounter; Z13.9 Encounter for screening, unspecified
CPT/HCPCS: 83036; 99213

== ENCOUNTER 2023-09-22 08:31 | Outpatient (AMB) | payer MEDICARE, SELFPAY ==
[2023-09-22 08:36] VITALS: BP 120/70; PULSE 82; O2SAT 98; BMI 33.9
--- NOTE | 2023-09-22 08:36 | A.OFFPC_ITS ---
Vital Signs 09/22/23 08:36 Height 5 ft 10 in Weight 236 lb 8 oz BMI 33.9 BP 120/70 Blood Pressure Location Lt brachial Position Sitting Pulse 82 Pulse Source Pulse Oximeter Pulse Oximetry (%) 98 Oxygen Delivery Method Room Air Intake Visit Reasons: follow up diabetes Intake Note: Patient is here to follow up on his diabetes today. Patient would like to set up an appointment with diabetes nurse. He would like to talk about Atorvastatin and testosterone. Allergies No Known Allergies Allergy (Verified 09/22/23 08:41) Tobacco use date assessed: 09/22/23 Fall risk assessment: No Falls in past year Last assessed Fall Risk: 09/22/23 HPI follow up diabetes HPI Details 73 y/o male presents to f/u diabetes. Last A1c 05/28/23 was 6.5% which was good control. He is on insulin glargine 44 units, lispro 10 units and metformin 1000mg b.i.d. A1c today 09/22/23 is 6.5%. Pt is on artovastatin 10mg for his lipids. No recent lipid panel to review. Morning blood sugars have been in the 100-120s. 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 Adrian Limon, Kimberley Zavala, Ramon Mackay and colleagues, with an educational balaji from [email or web address]. Review of Systems Const Denies chills, Denies fatigue, Denies fever(s), Denies headache(s) and Denies weakness ENT Denies dizziness and Denies headache(s) Card Denies dyspnea Resp Denies cough, Denies dyspnea, Denies wheezing and Denies other (shortness of breath) Musc Denies numbness and Denies tingling Neuro Denies dizziness, Denies headache(s), Denies numbness, Denies tingling and Denies weakness Psych Denies anxiety and Denies depression Endo Denies fatigue Aller/Immun Denies wheezing Physical exam (Primary Care) Vital Signs: Last Vital Signs Pulse 82 09/22/23 08:36 BP 120/70 09/22/23 08:36 Pulse Ox 98 09/22/23 08:36 Oxygen Delivery Method Room Air 09/22/23 08:36 BMI result Body Mass Index 33.9 Tobacco/Smoking Status: Tobacco use Status Tobacco use date assessed 09/22/23 09/22/23 08:44 Patient Tobacco Use Status Never used Tobacco 09/22/23 08:44 e-Cigarette/Vaping Use Never Used 09/22/23 08:44 Thrive Assessment: Date of Thrive Assessment Date Thrive assessed 11/26/22 09/22/23 08:44 Const General: well developed; No acute distress Nutritional Appearance: well nourished Orientation/consciousness: patient oriented x3 HENMT Head: Yes normocephalic and Yes atraumatic Eyes General: appearance normal, both eyes and all related structures Pupils: Equal, round and reactive pupils present EOM: EOMs intact bilaterally Resp Effort & Inspection: normal respiratory effort Auscultation: clear to auscultation bilaterally Cardio Rate: regular rate Rhythm: regular rhythm Heart sounds: S1 normal heart sound present, S2 normal heart sound present, no gallops, no murmurs and no rubs Neuro General: patient oriented x3 and gait normal Cranial nerves: Yes Equal, round and reactive pupils present Psych Affect: normal affect Results AMB Hemoglobin A1c AMB Hemoglobin A1c 6.5 % Last Edit by Maisha Bronson CMA on 09/22/23 09:02 Results Reviewed Results Reviewed: Laboratory Last Values Hgb A1c (Clinic) 6.5 % (4.0-6.0) H 09/22/23 08:54 Assessment and Plan Assessment & Plan (1) Diabetes type 2, controlled: Code(s): E11.9 - Type 2 diabetes mellitus without complications Plan: A1c?6.5%?is?good?control.??Goal?is?less?than?7.0%. Patient?does?have?diabetic?retinopathy?and?is?followed?closely?by?his?ophthalmol ogist. We?discussed?maintaining?tight?control.??He?will?work?on?diabetic?diet?and?weigh t?control?and?exercise. He?would?like?a?referral?to?the?nurse?navigator?to?discuss?Linda?3?as?he?is?usin g?an?older?version. Continue?current?medication?regimen (2) Hyperlipidemia: Code(s): E78.5 - Hyperlipidemia, unspecified Plan: Lipids?controlled?by?atorvastatin. Continue?current?medication?regimen (3) Low HDL (under 40): Code(s): E78.6 - Lipoprotein deficiency Plan: Mildly?low?HDL. Encouraged?exercise (4) Erectile dysfunction: Code(s): N52.9 - Male erectile dysfunction, unspecified Plan: Possibly?due?to?diabetes. Maintain?good?blood?sugar?control Check?testosterone Patient?tried?a HIMS medication?which?was?likely?sildenafil?though?he?is?uncertain.??He?did?not?like? the?side?effects. Can?refer?to?Urology?if?symptoms?persist?and?testosterone?testing?indicates. Orders: Orders AMB Hemoglobin A1c Today Z13.9 - Encounter for screening, unspecified Comprehensive [place]. Panel Fast Today E11.9 - Type 2 diabetes mellitus without complications, Z00.00 - Encounter for general adult medical examination without abnormal findings Testosterone, Free/Total Today E11.9 - Type 2 diabetes mellitus without complications Referrals Nurse Navigator Referral E11.9 - Type 2 diabetes mellitus without complications Medications: Refilled famotidine 20 mg PO BEDTIME 90 tabs 4RF 90 days Coding Level of Care Code Est Pt Level 4 (89201) Diagnoses Diabetes type 2, controlled E11.9 Hyperlipidemia E78.5 Low HDL (under 40) E78.6 Erectile dysfunction N52.9
== END 2023-09-22 09:23 | disposition home or self-care (01) ==
PROVIDERS: PCP Family Medicine; Visit Provider Family Medicine
DX: E11.9 Type 2 diabetes mellitus without complications (principal); E78.5 Hyperlipidemia, unspecified; E78.6 Lipoprotein deficiency; N52.9 Male erectile dysfunction, unspecified
CPT/HCPCS: 83036; 99214

== ENCOUNTER 2023-09-24 07:33 | Outpatient (REF) | payer MEDICARE, SELFPAY ==
[2023-09-24 11:46] LABS: Alanine Aminotransferase 22 U/L (0-40); Albumin Level 4.2 g/dL (3.5-5.0); Alkaline Phosphatase 52 U/L (39-117); Anion Gap 12 (12-20); Aspartate Amino Transferase 20 U/L (5-37); Bilirubin Total 0.9 mg/dL (0.0-1.0); Blood Urea Nitrogen 18 mg/dL (9-16); Calcium 9.4 mg/dL (8.4-10.2); Carbon Dioxide 28 mmol/L (22-29); Chloride 105 mmol/L (96-108); Estimated Glomerular Filt Rate > 60; Glucose Fasting 186 mg/dL (60-99); Potassium 4.5 mmol/L (3.3-5.1); Sodium 140 mmol/L (135-145); Total Protein 6.7 g/dL (6.5-8.0)
[2023-09-29 14:37] LABS: Testosterone, Free 40.8 pg/mL (30.0-135.0); Testosterone, Total 246 ng/dL (250-1100)
== END 2023-09-24 07:34 | disposition home or self-care (01) ==
LOC: HO.WFDLDS 07:33
PROVIDERS: Visit Provider Family Medicine
DX: Z00.00 Encounter for general adult medical examination without abnormal findings (principal); E11.9 Type 2 diabetes mellitus without complications
CPT/HCPCS: 36415; 80053; 84402; 84403

== ENCOUNTER 2023-12-22 09:14 | Outpatient (AMB) | payer MEDICARE, SELFPAY ==
--- NOTE | 2023-12-22 09:16 | MHC.PC.OV ---
Vital Signs 12/22/23 09:17 Height 5 ft 10 in Weight 238 lb 4 oz BMI 34.2 BP 137/66 Blood Pressure Location Lt brachial Position Sitting Pulse 80 Pulse Source Pulse Oximeter Temp 97.9 F Temp Source Temporal Artery Scan Pulse Oximetry (%) 98 Oxygen Delivery Method Room Air Intake Visit Reasons: follow up diabetes Intake Note: Patient is here to follow up on his diabetes. Patient would like refill of Metrondazole. Allergies No Known Allergies Allergy (Verified 12/22/23 09:20) Medication List - Last Reconciled 12/22/23 by Poli Randolph MD aspirin (Adult Low Dose Aspirin) 81 mg PO DAILY atorvastatin 10 mg PO DAILY blood sugar diagnostic ([employer] Ultra Test strips) daily As directed, 90 days blood-glucose sensor ([employer] Linda 3 Sensor device) As directed every 14 days famotidine 20 mg PO BEDTIME 90 days flash glucose scanning reader (FreeStyle Linda 14 Day [place]) As directed flash glucose scanning reader (FreeStyle Linda 14 Day [place]) As directed flash glucose sensor (FreeStyle Linda 14 Day Sensor kit) As directed. 28 days fluticasone propionate 50 mcg/actuation (Flonase Allergy Relief) 1 spray intranasal Q12H 30 days Humalog KwikPen Insulin (insulin lispro) 10 units (0.1 mL) subcut TID 90 days NS insulin glargine (Lantus Solostar U-100 Insulin) 44 units (0.44 mL) subcut DAILY 90 days metformin ER 1,000 mg (2 x 500 mg) PO BID 90 days metronidazole 0.75% 1 appl topical DAILY PRN miscellaneous medical supply Diabetic Shoes. Daily As directed. 999 days multivitamin 1 tab PO DAILY olopatadine 0.2% (Pataday Once Daily Relief) 1 drp ophthalmic (eye) QAM 30 days pen needle, diabetic Use 4 daily, As directed. Ninety day supply. Tobacco use date assessed: 09/22/23 Fall risk assessment: No Falls in past year Last assessed Fall Risk: 12/22/23 Dental Screening Dental Screen Date: 12/22/23 Did you have a dental visit in the last 12 months?: No Did you have a dental problem in the last 6 months where you did not have access to dental care?: No Was dental information given to patient?: Patient has dentist HPI follow up diabetes HPI Details 73 y/o male presents to f/u diabetes. Last A1c 09/22/23 6.5%. He is on insulin glargine 44 units, lispro 10 units and metformin 1000mg b.i.d. A1c today 12/22/23 is 6.8%. They deny any problems with his medication regimen. [facility] Medical History Sleep apnea Diabetes Elevated cholesterol HTN (hypertension) GERD (gastroesophageal reflux disease) Encounter for screening Surgical History History of endoscopy Status post right foot surgery H/O colonoscopy History of appendectomy Family History Mother Lung cancer Social History Household Members: [facility] Alcohol intake: current Alcohol intake frequency: does not drink Patient Tobacco Use Status: Never used Tobacco e-Cigarette/Vaping Use: Never Used Second Hand Smoke Exposure: No service: No 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 Adrian Limon, Kimberley Zavala, Ramon Mackay and colleagues, with an educational balaji from [employer]. Review of Systems Const Denies chills, Denies fatigue, Denies fever(s), Denies headache(s) and Denies weakness ENT Denies dizziness and Denies headache(s) Card Denies chest pain, Denies lightheadedness, Denies dyspnea and Denies other (Palpitations) Resp Denies cough, Denies dyspnea, Denies wheezing and Denies other ( shortness of breath) Musc Denies numbness and Denies tingling Neuro Denies dizziness, Denies headache(s), Denies numbness, Denies tingling, Denies paresthesias and Denies weakness Psych Denies anxiety and Denies depression Endo Denies fatigue Aller/Immun Denies wheezing Physical exam (Primary Care) Vital Signs: Last Vital Signs Temp 97.9 F 12/22/23 09:17 Pulse 80 12/22/23 09:17 BP 137/66 12/22/23 09:17 Pulse Ox 98 12/22/23 09:17 Oxygen Delivery Method Room Air 12/22/23 09:17 BMI result Body Mass Index 34.2 Tobacco/Smoking Status: Tobacco use Status Tobacco use date assessed 09/22/23 12/22/23 09:23 Patient Tobacco Use Status Never used Tobacco 12/22/23 09:23 e-Cigarette/Vaping Use Never Used 12/22/23 09:23 Thrive Assessment: Date of Thrive Assessment Date Thrive assessed 11/26/22 12/22/23 09:23 Const General: no acute distress and well developed Nutritional Appearance: well nourished Orientation/consciousness: patient oriented x3 HENMT Head: Yes normocephalic and Yes atraumatic Eyes General: appearance normal, both eyes and all related structures Pupils: Equal, round and reactive pupils present EOM: EOMs intact bilaterally Resp Effort & Inspection: normal respiratory effort Auscultation: clear to auscultation bilaterally Cardio Rate: regular rate Rhythm: regular rhythm Heart sounds: S1 normal heart sound present, S2 normal heart sound present, no gallops, no murmurs and no rubs Neuro General: patient oriented x3 and gait normal Cranial nerves: Yes Equal, round and reactive pupils present Psych Affect: normal affect Results AMB Hemoglobin A1c AMB Hemoglobin A1c 6.8 % Last Edit by Patti Younger CMA on 12/22/23 09:42 Assessment and Plan Assessment & Plan (1) Diabetes with retinopathy: Code(s): E11.319 - Type 2 diabetes mellitus with unspecified diabetic retinopathy without macular edema Plan: A1c?climbed?from?6.5%?to?6.8%. Goal?is Less?than?7%. However,?encouraged?patient?to?work?at?tighter?control?due?to?retinopathy. No?changes?to?his?medication Regimen?today Encouraged?diabetic?diet,?exercise?and?weight?loss. 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 Orders: Orders AMB Hemoglobin A1c Today Z13.9 - Encounter for screening, unspecified Microalbumin, Random (w Creat) Today I10 - Essential (primary) hypertension Prostate Specific Antigen Scr Today Z12.5 - Encounter for screening for malignant neoplasm of prostate Lipid Panel Today Z00.00 - Encounter for general adult medical examination without abnormal findings Comprehensive [place]. Panel Fast Today Z00.00 - Encounter for general adult medical examination without abnormal findings Complete Blood Count Auto Diff Today Z00.00 - Encounter for general adult medical examination without abnormal findings UA and rflx microscopic Today Z00.00 - Encounter for general adult medical examination without abnormal findings TSH reflex Free T4 Today Z00.00 - Encounter for general adult medical examination without abnormal findings Coding Level of Care Code Est Pt Level 3 (91022) Diagnoses Diabetes with retinopathy E11.319
[2023-12-22 09:17] VITALS: BP 137/66; PULSE 80; TEMP 36.6; O2SAT 98; BMI 34.2
== END 2023-12-22 09:49 | disposition home or self-care (01) ==
PROVIDERS: PCP Family Medicine; Visit Provider Family Medicine
DX: E11.319 Type 2 diabetes mellitus with unspecified diabetic retinopathy without macular edema (principal)
CPT/HCPCS: 83036; 99213

== ENCOUNTER 2024-02-25 10:20 | Outpatient (AMB) | payer MEDICARE, SELFPAY ==
--- NOTE | 2024-02-25 10:46 | A.OFFVIS_ITS ---
Intake Vital Signs 02/25/24 10:52 Height 5 ft 10 in Weight 238 lb BMI 34.1 BP 132/80 Blood Pressure Location Lt brachial Position Sitting Pulse 76 Pulse Source Pulse Oximeter Pulse Oximetry (%) 97 Oxygen Delivery Method Room Air Intake Visit Reasons: 1yr f/u Hypersomnia - CONF w/address Intake Note: Patient presents for 1 year F/U. Allergies No Known Allergies Allergy (Verified 02/25/24 10:51) HPI HPI Comments History of Present Illness Details 73 y/o male patient present with his wif e for follow up PAMELA on CPAP. The CPAP compliance and therapy response (11/24/23-02/21/24) reviewed with the patient. The patient is on CPAP at [id number]. The days of use was 100 % and average usage hours was 7 hours 25 min. The residual AHI was 1/hr. Pt reports that he sleeps much better with CPAP. He can 9 pm to 5 am and wakes up refreshed. He states that he is more alert and has energy during the day. He started exercise, walking. 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 occupational exposures/hazards: No Cognitive needs: No Hearing needs: Yes (Hearing aides) Vision needs: Yes (Patient wears glasses.) Review of Systems Const All systems reviewed & are unremarkable except as noted in HPI and below ENT Reports Normal hearing present Neuro Reports Normal hearing present Physical Exam Vital Signs: Last Vital Signs Pulse 76 02/25/24 10:52 BP 132/80 04/11/24 10:52 Pulse Ox 97 02/25/24 10:52 Oxygen Delivery Method Room Air 02/25/24 10:52 BMI result Body Mass Index 34.1 Const General: cooperative and comfortable Nutritional Appearance: obese Orientation/consciousness: patient oriented x3 Resp Effort & Inspection: normal respiratory effort and able to speak in complete sentences Neuro General: patient oriented x3 and gait normal Cranial nerves: Yes Bilaterally intact EOM present, Yes Normal facial strength present, Yes Midline tongue present, Yes Normal hearing present, Yes Ability to bilaterally rotate head present and Yes Ability to bilaterally elevate shoulders present Cognition (Neuro): normal cognition Gait exam (Neuro): Normal gait present Psych Affect: normal affect Attitude: cooperative Assessment & Plan Assessment & Plan (1) PAMELA on CPAP: Code(s): G47.33 - Obstructive sleep apnea (adult) (pediatric); Z99.89 - Dependence on other enabling machines and devices Plan Continue to use CPAP at [id number] as patient experiences good clinical effects. Clean the CPAP mask and tubing regularly. Wt reduction advised. Advised patient to increase physical activity and manage diet. Coding Level of Care Code Est Pt Level 3 (39670) Diagnoses PAMELA on CPAP G47.33; Z99.89
[2024-02-25 10:52] VITALS: BP 132/80; PULSE 76; O2SAT 97; BMI 34.1
== END 2024-02-25 11:06 | disposition home or self-care (01) ==
PROVIDERS: Visit Provider Nurse Practitioner Family
DX: G47.33 Obstructive sleep apnea (adult) (pediatric) (principal); Z99.89 Dependence on other enabling machines and devices
CPT/HCPCS: 99213

== ENCOUNTER → 2024-02-25 10:20 | Outpatient (BNVA) | payer MEDICARE, SELFPAY | PROVIDERS: Visit Provider Nurse Practitioner Family | DX: G47.33 Obstructive sleep apnea (adult) (pediatric) (principal); Z99.89 Dependence on other enabling machines and devices | CPT/HCPCS: 99212 ==

== ENCOUNTER 2024-03-24 07:02 | Outpatient (REF) | payer MEDICARE, SELFPAY ==
[2024-03-24 11:37] LABS: MANUAL DIFF FLAG NO
[2024-03-24 11:45] LABS: Basophils Percent Auto 0.5 % (0-2); Eosinophils Absolute Auto 0.2 X10*3/uL (0.0-0.4); Eosinophils Percent Auto 3.9 % (0-4); Hemoglobin 15.7 g/dl (14.0-18.0); Imm Gran Abs Auto 0.04 X10*3/uL (0.00-0.03); Imm Gran Pct Auto 0.7 % (0.0-0.4); Lymphocytes Absolute Auto 1.3 X10*3/uL (1.2-4.9); Lymphocytes Percent Auto 22.6 % (20-40); Mean Corpuscular HGB Conc 33.4 g/dl (31.0-36.0); Mean Corpuscular Hemoglobin 31.5 pg (27.0-33.0); Mean Corpuscular Volume 94.2 fL (80.0-98.0); Mean Platelet Volume 9.3 fL (9.4-12.4); Monocytes Absolute Auto 0.4 X10*3/uL (0.1-1.2); Monocytes Percent Auto 6.9 % (2-11); Neutrophils Absolute Auto 3.7 x10*3/uL (2.0-8.3); Neutrophils Percent Auto 65.4 % (45-73); Platelet Count 143 X10*3/uL (160-400); Red Blood Count 4.99 X10*6/uL (4.60-5.80); Red Cell Distribution Width 13.5 % (11.0-16.0); White Blood Count 5.6 X10*3/uL (4.8-10.8)
[2024-03-24 11:55] LABS: Appearance Urine Clear; Color Urine Yellow; Glucose Urine UA Negative (Negative); Leukocyte Esterase Urine Negative (Negative); Nitrite Urine Negative (Negative); Urine Blood Negative (Negative); Urine Ketones Negative (Negative); Urine Protein Negative (Neg-Trace)
[2024-03-24 12:24] LABS: Prostate Specific Antigen Scr 3.12 ng/mL (<0.05-4.0)
[2024-03-24 12:27] LABS: Alanine Aminotransferase 29 U/L (0-40); Albumin Level 4.3 g/dL (3.5-5.0); Alkaline Phosphatase 49 U/L (39-117); Anion Gap 13 (12-20); Aspartate Amino Transferase 21 U/L (5-37); Bilirubin Total 0.9 mg/dL (0.0-1.0); Blood Urea Nitrogen 18 mg/dL (9-16); Calcium 9.7 mg/dL (8.4-10.2); Carbon Dioxide 29 mmol/L (22-29); Chloride 103 mmol/L (96-108); Cholesterol 116 mg/dL (<200); Estimated Glomerular Filt Rate > 60; Glucose Fasting 104 mg/dL (60-99); HDL Cholesterol 40 mg/dL (>40); LDL Cholesterol Calculated 48 mg/dL (<100); Potassium 4.2 mmol/L (3.3-5.1); Sodium 141 mmol/L (135-145); Total Protein 6.9 g/dL (6.5-8.0); Triglycerides 141 mg/dL (<150)
[2024-03-24 12:43] LABS: Creatinine Urine 92.67 mg/dL; Microalbum/Creatinine Ratio Ur 10.7 ug/mg cr (<30)
[2024-03-24 12:46] LABS: TSH reflex Free T4 1.81 uIU/mL (0.32-4.0)
== END 2024-03-24 07:03 | disposition home or self-care (01) ==
LOC: HO.WFDLDS 07:02
PROVIDERS: Visit Provider Family Medicine
DX: Z00.00 Encounter for general adult medical examination without abnormal findings (principal); Z12.5 Encounter for screening for malignant neoplasm of prostate; I10 Essential (primary) hypertension
CPT/HCPCS: 36415; 80053; 80061; 81003; 82043; 82570; 84153; 84443; 85025

== ENCOUNTER 2024-03-29 11:25 | Outpatient (AMB) | payer MEDICARE, SELFPAY ==
[2024-03-29 12:00] VITALS: BP 132/64; PULSE 81; O2SAT 96; BMI 33.7
--- NOTE | 2024-03-29 12:00 | A.OFFPC_ITS ---
Vital Signs 03/29/24 12:00 Height 5 ft 10 in Weight 235 lb BMI 33.7 BP 132/64 Blood Pressure Location Lt brachial Position Sitting Pulse 81 Pulse Source Pulse Oximeter Pulse Oximetry (%) 96 Oxygen Delivery Method Room Air Intake Visit Reasons: CPE with f/u labs and health maint. Intake Note: Patient is here for a physical and to follow up on labs. Allergies No Known Allergies Allergy (Verified 03/29/24 12:02) Medication List - Last Reconciled 03/29/24 by Poli Randolph MD aspirin (Adult Low Dose Aspirin) 81 mg PO DAILY atorvastatin 10 mg PO DAILY blood sugar diagnostic ([employer] Ultra Test strips) daily As directed, 90 days blood-glucose sensor (FreeStyle Linda 3 Sensor device) As directed every 14 days famotidine 20 mg PO BEDTIME 90 days flash glucose scanning reader (FreeStyle Linda 14 Day [place]) As directed flash glucose scanning reader (FreeStyle Linda 14 Day [place]) As directed flash glucose sensor (FreeStyle Linda 14 Day Sensor kit) As directed. 28 days fluticasone propionate 50 mcg/actuation (Flonase Allergy Relief) 1 spray intranasal Q12H 30 days Humalog KwikPen Insulin (insulin lispro) 10 units (0.1 mL) subcut TID 90 days NS insulin glargine (Lantus Solostar U-100 Insulin) 44 units (0.44 mL) subcut DAILY 90 days metformin ER 1,000 mg (2 x 500 mg) PO BID 90 days metronidazole 0.75% 1 appl topical DAILY PRN miscellaneous medical supply Diabetic Shoes. Daily As directed. 999 days multivitamin 1 tab PO DAILY olopatadine 0.2% (Pataday Once Daily Relief) 1 drp ophthalmic (eye) QAM 30 days pen needle, diabetic Use 4 daily, As directed. Ninety day supply. Tobacco use date assessed: 03/29/24 Fall risk assessment: No Falls in past year Last assessed Fall Risk: 03/29/24 Dental Screening Dental Screen Date: 03/29/24 Did you have a dental visit in the last 12 months?: No Did you have a dental problem in the last 6 months where you did not have access to dental care?: No Was dental information given to patient?: Patient has dentist HPI CPE with f/u labs and health maint. HPI Details 73 y/o male presents for a CPE with f/u labs and health maintenance. Last A1c 12/22/23 6.8%. A1c today 03/29/24 is 6.8%. He is on insulin glargine 44 units, lispro 10 units and metformin 1000mg b.i.d. Labs were drawn 03/24/24. Reviewed labs with pt. Triglycerides 141. TC 116. LDL 48. HDL 40. He is on artovastatin 10mg daily. [facility] Medical History Sleep apnea Diabetes Elevated cholesterol HTN (hypertension) GERD (gastroesophageal reflux disease) Encounter for screening Surgical History History of endoscopy Status post right foot surgery H/O colonoscopy History of appendectomy Family History Mother Lung cancer Social History Household Members: [facility] Alcohol intake: current Alcohol intake frequency: does not drink Patient Tobacco Use Status: Never used Tobacco e-Cigarette/Vaping Use: Never Used Second Hand Smoke Exposure: No service: No 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 1. Little interest or pleasure in doing things: not at all 2. Feeling down, depressed, or hopeless: not at all 3. Trouble falling or staying asleep, or sleeping too much: not at all 4. Feeling tired or having little energy: not at all 5. Poor appetite or overeating: not at all 6. Feeling bad about yourself - or that you are a failure or have let yourself or your family down: not at all 7. Trouble concentrating on things, such as reading the newspaper or watching television: not at all 8. Moving or speaking so slowly that other people could have noticed. Or the opposite - being so fidgety or restless that you have been moving around a lot more than usual: not at all 9. Thoughts that you would be better off or of hurting yourself in some way: not at all Total score: 0 Depression Screening Interpretation: Negative Depression Screening Done: Yes Source: Developed by Drs. Adrian Limon, Kimberley Zavala, Ramon Mackay and colleagues, with an educational balaji from [employer]. Thrive Questionnaire Date Thrive assessed: 03/29/24 I am a: Patient What is your living situation today?: I have a steady place to live Within the past 12 months, did the food you bought not last and you didn't have the money to get more?: Never true Within the past 12 months, did you worry whether your food would run out before you got money to buy more?: Never true Do you have trouble paying for medicines?: No Do you have trouble getting transportation to medical appointments?: No Do you have trouble paying your heating and electricity bill?: No Do you have trouble taking care of your child, family member or friend?: No Do you have trouble with day-to-day activities such as bathing, preparing meals, shopping, managing finances, etc.?: No Are you currently unemployed and looking for a job?: No Are you interested in more education?: No THRIVE Score: 0 WILD-7 AMB Questionnaire WILD-7 Date WILD - 7 assessed: 03/29/24 Feeling nervous, anxious, or on edge: 0 = Not at all Not being able to stop or control worryin = Not at all Worrying too much about different things: 0 = Not at all Trouble relaxin = Not at all Being so restless that it is hard to sit still: 0 = Not at all Becoming easily annoyed or irritable: 0 = Not at all Feeling afraid as if something awful might happen: 0 = Not at all Total WILD-7 score (0-4 normal; 5-9 mild; 10-14 moderate; 15-21 severe): 0 Source: Developed by Drs. Adrian Limon, Kimberley Zavala, Ramon Mackay and colleagues, with an educational balaji from [employer]. Review of Systems Const Denies chills, Denies fatigue, Denies fever(s), Denies headache(s) and Denies weakness Eyes Denies change in vision ENT Denies dizziness, Denies headache(s), Denies hearing loss, Denies nasal congestion, Denies sinus pain, Denies sinus pressure and Denies sore throat Card Denies chest pain, Denies lightheadedness, Denies dyspnea and Denies other (palpitations) Resp Denies cough, Denies dyspnea and Denies wheezing GI Denies abdominal pain, Denies melena, Denies hematochezia, Denies change in bowel habits, Denies dyspepsia and Denies nausea Denies hematuria and Denies dysuria Musc Denies abnormal gait, Denies myalgias, Denies arthralgias, Denies numbness and Denies tingling Skin/Breast Denies rash, Denies unusual bruising and Denies wounds Neuro Denies abnormal gait, Denies dizziness, Denies headache(s), Denies memory loss, Denies numbness, Denies Sensory deficit (Neuro), Denies tingling and Denies weakness Psych Denies anxiety, Denies depression and Denies memory loss Endo Denies cold intolerance, Denies fatigue, Denies heat intolerance, Denies polydipsia and Denies polyuria Alonso/Lymph Denies easy bleeding and Denies easy bruising Aller/Immun Denies wheezing Physical exam (Primary Care) Vital Signs: Last Vital Signs Pulse 81 03/29/24 12:00 BP 132/64 03/29/24 12:00 Pulse Ox 96 03/29/24 12:00 Oxygen Delivery Method Room Air 03/29/24 12:00 BMI result Body Mass Index 33.7 Tobacco/Smoking Status: Tobacco use Status Tobacco use date assessed 03/29/24 03/29/24 12:03 Patient Tobacco Use Status Never used Tobacco 03/29/24 12:01 e-Cigarette/Vaping Use Never Used 03/29/24 12:01 PHQ-9: PHQ-9 Score PHQ-9: Total score 0 03/29/24 12:58 Depression Screening Interpretation: Negative Thrive Assessment: Date of Thrive Assessment Date Thrive assessed 03/29/24 03/29/24 12:11 Const General: no acute distress, well developed, alert and awake Nutritional Appearance: well nourished Orientation/consciousness: patient oriented x3 HENMT Head: Yes normocephalic and Yes atraumatic Ears: hearing grossly normal bilaterally and TM's normal bilaterally General nose exam: Normal external nose present and Normal nares present Mouth: Normal oral and palatal mucosa present and moist mucous membranes Teeth and gingiva: dentition normal Throat: Yes posterior oropharynx normal Eyes General: appearance normal, both eyes and all related structures Pupils: Equal, round and reactive pupils present and Pupil accommodation reflex normal EOM: EOMs intact bilaterally Neck Neck: Yes normal visual inspection, Yes no lymphadenopathy and Yes trachea mi dline Thyroid: Thyroid normal Carotids: no bruits Lymphatic: no lymphadenopathy noted Chest Chest palpation & inspection: normal inspection of the chest Resp Effort & Inspection: normal respiratory effort Auscultation: clear to auscultation bilaterally Cardio Rate: regular rate Rhythm: regular rhythm Heart sounds: S1 normal heart sound present, S2 normal heart sound present, no gallops, no murmurs and no rubs Bruits: no abdominal aortic bruits and no carotid bruits GI Palpation (GI): No Abdominal aortic bruit present, Soft to palpation, nontender, No hepatosplenomegaly present and No Rebound tenderness present Auscultation: normal bowel sounds General: Yes no CVA tenderness Back/Spine/Pelvis Back: no CVA tenderness Cervical Spine: cervical ROM normal and No Cervical spine tenderness Thoracic/Lumbar Spine: thoraco-lumbar ROM normal, No pain with thoraco-lumbar ROM, No thoracic spinal tenderness and No lumbar spinal tenderness Skin Lesions: no lesions Rashes: no rashes Trauma: no lacerations or abrasions Wounds: no wounds Nails: normal Neuro General: patient oriented x3 Cranial nerves: Yes Equal, round and reactive pupils present Cognition (Neuro): normal cognition Gait exam (Neuro): Normal gait present Motor exam (neuro): 5/5 motor strength present throughout Sensory Exam: No Sensory deficit (Neuro) Deep tendon reflexes (DTR's): Right patellar reflex intensity grade: 2+ and Left patellar reflex intensity grade: 2+ Extrem General: Yes normal to inspection and No edema Psych Appearance: grossly normal Affect: normal affect Attitude: cooperative Thought process: Normal thought process present Results AMB Hemoglobin A1c AMB Hemoglobin A1c 6.8 % Last Edit by Patti Younger CMA on 03/29/24 12:35 Results Reviewed Results Reviewed: Laboratory Last Values Hgb A1c (Clinic) 6.8 % (4.0-6.0) H 03/29/24 12:11 Assessment and Plan Assessment & Plan (1) Adult general medical exam: Code(s): Z00.00 - Encounter for general adult medical examination without abnormal findings (2) Diabetes type 2, controlled: Code(s): E11.9 - Type 2 diabetes mellitus without complications Plan: A1c?6.8%?again?today.??Controlled.??Goal?is?less?than?7.0% Continue?current?medications Continue?diabetic?diet Encouraged?exercise?and?weight?loss (3) Essential hypertension: Code(s): I10 - Essential (primary) hypertension Plan: Blood?pressure?in?prehypertensive?range.??He?is?not?on?medications Encouraged?exercise,?weight?loss?and?salt/sodium?avoiding Will?continue?to?follow (4) Hyperlipidemia: Code(s): E78.5 - Hyperlipidemia, unspecified Plan: Borderline?HDL Is?other?lipids?are?controlled.??He?is?on?atorvastatin Continue?current?medication Try?to?increase?exercise (5) Screening for prostate cancer: Code(s): Z12.5 - Encounter for screening for malignant neoplasm of prostate Plan: PSA?is?steady?and?below?4.0% Continue?to?monitor?with?annual?screening (6) Screening for colon cancer: Code(s): Z12.11 - Encounter for screening for malignant neoplasm of colon Plan: Followed?by?Gastroenterology[place]at[place] [place] Up-to-date Orders: Orders AMB Hemoglobin A1c Today Z13.9 - Encounter for screening, unspecified Comprehensive Met. Panel Today E11.319 - Type 2 diabetes mellitus with unspecified diabetic retinopathy without macular edema Complete Blood Count Auto Diff Today D69.6 - Thrombocytopenia, unspecified, Z00.00 - Encounter for general adult medical examination without abnormal findings Coding Level of Care Code Est Pt Level 3 (11554) Est Pt Prev Care >65y(65200) Diagnoses Adult general medical exam Z00.00 Diabetes type 2, controlled E11.9 Essential hypertension I10 Hyperlipidemia E78.5 Screening for prostate cancer Z12.5 Screening for colon cancer Z12.11
== END 2024-03-29 16:11 | disposition home or self-care (01) ==
PROVIDERS: PCP Family Medicine; Visit Provider Family Medicine
DX: Z00.00 Encounter for general adult medical examination without abnormal findings (principal); E11.69 Type 2 diabetes mellitus with other specified complication; I10 Essential (primary) hypertension; E78.5 Hyperlipidemia, unspecified; Z12.5 Encounter for screening for malignant neoplasm of prostate; Z12.11 Encounter for screening for malignant neoplasm of colon
CPT/HCPCS: 83036; 99397

== ENCOUNTER 2024-07-07 07:30 | Outpatient (REF) | payer MEDICARE, SELFPAY ==
[2024-07-07 09:12] LABS: MANUAL DIFF FLAG NO
[2024-07-07 09:17] LABS: Basophils Absolute Auto 0.1 X10*3/uL (0.0-0.2); Basophils Percent Auto 0.8 % (0-2); Eosinophils Absolute Auto 0.3 X10*3/uL (0.0-0.4); Eosinophils Percent Auto 4.5 % (0-4); Hematocrit 44.1 % (42.0-52.0); Hemoglobin 15.2 g/dl (14.0-18.0); Imm Gran Abs Auto 0.07 X10*3/uL (0.00-0.03); Imm Gran Pct Auto 1.1 % (0.0-0.4); Lymphocytes Absolute Auto 1.3 X10*3/uL (1.2-4.9); Lymphocytes Percent Auto 21.3 % (20-40); Mean Corpuscular HGB Conc 34.5 g/dl (31.0-36.0); Mean Corpuscular Hemoglobin 31.7 pg (27.0-33.0); Mean Corpuscular Volume 92.1 fL (80.0-98.0); Mean Platelet Volume 9.4 fL (9.4-12.4); Monocytes Absolute Auto 0.5 X10*3/uL (0.1-1.2); Monocytes Percent Auto 7.2 % (2-11); Neutrophils Percent Auto 65.1 % (45-73); Platelet Count 141 X10*3/uL (160-400); Red Blood Count 4.79 X10*6/uL (4.60-5.80); Red Cell Distribution Width 13.3 % (11.0-16.0); White Blood Count 6.2 X10*3/uL (4.8-10.8)
[2024-07-07 09:27] LABS: Alanine Aminotransferase 25 U/L (0-40); Albumin Level 4.1 g/dL (3.5-5.0); Alkaline Phosphatase 58 U/L (39-117); Anion Gap 12 (12-20); Aspartate Amino Transferase 18 U/L (5-37); Bilirubin Total 0.9 mg/dL (0.0-1.0); Blood Urea Nitrogen 23 mg/dL (9-16); Calcium 9.8 mg/dL (8.4-10.2); Carbon Dioxide 29 mmol/L (22-29); Chloride 103 mmol/L (96-108); Estimated Glomerular Filt Rate > 60; Glucose Random 191 mg/dL (60-115); Potassium 4.6 mmol/L (3.3-5.1); Sodium 139 mmol/L (135-145); Total Protein 6.5 g/dL (6.5-8.0)
== END 2024-07-07 07:31 | disposition home or self-care (01) ==
LOC: HO.WFDLDS 07:30
PROVIDERS: Visit Provider Family Medicine
DX: Z00.00 Encounter for general adult medical examination without abnormal findings (principal); E11.319 Type 2 diabetes mellitus with unspecified diabetic retinopathy without macular edema; D69.6 Thrombocytopenia, unspecified
CPT/HCPCS: 36415; 80053; 85025

== ENCOUNTER 2024-07-13 08:08 | Outpatient (AMB) | payer MEDICARE, SELFPAY ==
--- NOTE | 2024-07-13 08:20 | MHC.PC.OV ---
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: No Allergies No Known Allergies Allergy (Verified 07/13/24 08:20) Medication List - Last Reconciled 07/13/24 by Poli Randolph MD aspirin (Adult Low Dose Aspirin) 81 mg PO DAILY atorvastatin 10 mg PO DAILY blood sugar diagnostic ([employer] Ultra Test strips) daily As directed, 90 days blood-glucose sensor ([employer]ak[employer] Linda 3 Sensor device) As directed every 14 days famotidine 20 mg PO BEDTIME 90 days flash glucose scanning reader (FreeStyle Linda 14 Day [place]) As directed flash glucose scanning reader (FreeStyle Linda 14 Day [place]) As directed flash glucose sensor (FreeStyle Linda 14 Day Sensor kit) As directed. 28 days fluticasone propionate 50 mcg/actuation (Flonase Allergy Relief) 1 spray intranasal Q12H 30 days Humalog KwikPen Insulin (insulin lispro) 10 units (0.1 mL) subcut TID 90 days NS insulin glargine (Lantus Solostar U-100 Insulin) 44 units (0.44 mL) subcut DAILY 90 days metformin ER 1,000 mg (2 x 500 mg) PO BID 90 days metronidazole 0.75% 1 appl topical DAILY PRN miscellaneous medical supply Diabetic Shoes. Daily As directed. 999 days multivitamin 1 tab PO DAILY olopatadine 0.2% (Pataday Once Daily Relief) 1 drp ophthalmic (eye) QAM 30 days pen needle, diabetic Use 4 daily, As directed. Ninety day supply. Tobacco use date assessed: 03/29/24 Dental Screening Dental Screen Date: 03/29/24 HPI F/U Diabetes and blood pressure HPI Details 73 y/o male presents to f/u diabetes, hypertension. Last A1c 03/29/24 6.8%. He is on insulin glargine 44 units, lispro 10 units and metformin 1000mg b.i.d. A1c today 07/13/24 7.3%. Morning blood sugars running 140s consistently. One low reading in the last 3 months around 60. Blood pressure today 114/62. Labs drawn 07/07/24. Reviewed labs with pt. Plt count 141. Has complaints of ear discomfort not but no pain. HPI Comments History of Present Illness Details Documentation assistance for Poli Randolph MD, was provided by Jose Elias Bryan,? Equipment Sales Specialist on 07/13/2024 at 8:48 AM EST. I, Dr. Randolph, have read, observed, and verified documentation. [facility] Medical History Sleep apnea Diabetes Elevated cholesterol HTN (hypertension) GERD (gastroesophageal reflux disease) Encounter for screening Surgical History History of endoscopy Status post right foot surgery H/O colonoscopy History of appendectomy Family History Mother Lung cancer Social History Household Members: [facility] Alcohol intake: current Alcohol intake frequency: does not drink Patient Tobacco Use Status: Never used Tobacco e-Cigarette/Vaping Use: Never Used Second Hand Smoke Exposure: No service: No 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 How often do you have a drink containing alcohol?: Monthly or less (twice a year) 2. How many drinks containing alcohol do you have on a typical day when you are drinking?: 1 or 2 3. How often do you have six or more drinks on one occasion?: Never Total Score: 1 WILD-7 AMB Questionnaire WILD-7 Date WILD - 7 assessed: 03/29/24 Source: Developed by Drs. Adrian Limon, Kimberley Zavala, Ramon Mackay and colleagues, with an educational balaji from [employer]. Review of Systems Const Denies chills, Denies fatigue, Denies fever(s), Denies headache(s) and Denies weakness ENT Denies dizziness and Denies headache(s) Card Denies dyspnea Resp Denies cough, Denies dyspnea, Denies wheezing and Denies other (shortness of breath) Musc Denies numbness and Denies tingling Neuro Denies dizziness, Denies headache(s), Denies numbness, Denies tingling and Denies weakness Psych Denies anxiety and Denies depression Endo Denies fatigue Aller/Immun Denies wheezing Physical exam (Primary Care) Vital Signs: Last Vital Signs Pulse 82 07/13/24 08:23 BP 114/62 07/13/24 08:23 Pulse Ox 93 07/13/24 08:23 Oxygen Delivery Method Room Air 07/13/24 08:23 BMI result Body Mass Index 33.8 Tobacco/Smoking Status: Tobacco use Status Tobacco use date assessed 03/29/24 07/13/24 08:22 Patient Tobacco Use Status Never used Tobacco 07/13/24 08:22 e-Cigarette/Vaping Use Never Used 07/13/24 08:22 Thrive Assessment: Date of Thrive Assessment Date Thrive assessed 03/29/24 07/13/24 08:22 Const General: well developed; No acute distress Nutritional Appearance: well nourished and obese Orientation/consciousness: patient oriented x3 HENMT Head: Yes normocephalic and Yes atraumatic Eyes General: appearance normal, both eyes and all related structures Pupils: Equal, round and reactive pupils present EOM: EOMs intact bilaterally Resp Effort & Inspection: normal respiratory effort Auscultation: clear to auscultation bilaterally Cardio Rate: regular rate Rhythm: regular rhythm Heart sounds: S1 normal heart sound present, S2 normal heart sound present, no gallops, no murmurs and no rubs Neuro General: patient oriented x3 and gait normal Cranial nerves: Yes Equal, round and reactive pupils present Psych Affect: normal affect Results AMB Hemoglobin A1c AMB Hemoglobin A1c 7.3 % Last Edit by Ronel Rice CMA on 07/13/24 08:35 Results Reviewed Results Reviewed: Laboratory Last Values Hgb A1c (Clinic) 7.3 % (4.0-6.0) H 07/13/24 08:33 Assessment and Plan Assessment & Plan (1) Diabetes with retinopathy: Code(s): E11.319 - Type 2 diabetes mellitus with unspecified diabetic retinopathy without macular edema Plan: A1c?has?climbed?again?to?7.3%.??Goal?is?less?than?7.0%?and?patient?has?retinopathy?so?recommending?tight?control. Will?have?him?increase?his?Lantus?from?44?units?daily?to?46?units?daily.??If?morning?blood?sugars?are?still?above?120?he?can?bring?this?up?to?48?units?daily. Will?follow-up?in?1?month. Patient?would?like?a?referral?to?endocrinology-referred Recent?visit?with?his?big data hadoop developer?and?patient?was?told?that?he?has?had?no?change?from?prior?visit. (2) Essential hypertension: Code(s): I10 - Essential (primary) hypertension Plan: Blood?pressure?is?well?controlled.??Patient?is?not?on?medication .??Goal?is?less?than?140/90 Will?continue?to?follow (3) Thrombocytopenia: Code(s): D69.6 - Thrombocytopenia, unspecified Plan: Mild?thrombocytopenia Will?recheck?CBC (4) Ear discomfort: Code(s): H92.09 - Otalgia, unspecified ear Plan: Mild?erythema?at?right?TM?with?some?complaints?of?pressure. Patient?has?allergies?and?is?taking?fluticasone?nasal?spray?as?well?as?an?[id number]?daytime?antihistamine. Can?try?some?Benadryl?at?night Blood?pressure?is?well?controlled?so?can?try?pseudoephedrine?but?not?more?than?2?days If?not?improving?will?refer?to?ENT Orders: Orders AMB Hemoglobin A1c Today E11.319 - Type 2 diabetes mellitus with unspecified diabetic retinopathy without macular edema Complete Blood Count Auto Diff Today D69.6 - Thrombocytopenia, unspecified, Z00.00 - Encounter for general adult medical examination without abnormal findings Comprehensive Met. Panel Today D69.6 - Thrombocytopenia, unspecified Referrals Endocrinology Referral E11.319 - Type 2 diabetes mellitus with unspecified diabetic retinopathy without macular edema Medications: Changed From insulin glargine (Lantus Solostar U-100 Insulin) Brand name only. Dispense as written (IVANNA). 44 units (0.44 mL) subcut DAILY 90 days 45 mL 3RF E11.9 - Type 2 diabetes mellitus without complications To insulin glargine (Lantus Solostar U-100 Insulin) Brand name only. Dispense as written (IVANNA). 46 units (0.46 mL) subcut DAILY 90 days 45 mL 3RF E11.9 - Type 2 diabetes mellitus without complications Coding Level of Care Code Est Pt Level 4 (40462) Diagnoses Diabetes with retinopathy E11.319 Essential hypertension I10 Thrombocytopenia D69.6 Ear discomfort H92.09
[2024-07-13 08:23] VITALS: BP 114/62; PULSE 82; O2SAT 93; BMI 33.8
== END 2024-07-13 09:05 | disposition home or self-care (01) ==
PROVIDERS: PCP Family Medicine; Visit Provider Family Medicine
DX: E11.319 Type 2 diabetes mellitus with unspecified diabetic retinopathy without macular edema (principal); I10 Essential (primary) hypertension; D69.6 Thrombocytopenia, unspecified; H92.09 Otalgia, unspecified ear
CPT/HCPCS: 83036; 99214

== ENCOUNTER 2024-08-15 14:06 | Outpatient (AMB) | payer MEDICARE, SELFPAY ==
--- NOTE | 2024-08-15 14:12 | MHC.PC.OV ---
Intake Visit Reasons: Blocked ears, cold for over a month Allergies No Known Allergies Allergy (Verified 07/13/24 08:20) Tobacco use date assessed: 03/29/24 Dental Screening Dental Screen Date: 03/29/24 [facility] Medical History Sleep apnea Diabetes Elevated cholesterol HTN (hypertension) GERD (gastroesophageal reflux disease) Encounter for screening Surgical History History of endoscopy Status post right foot surgery H/O colonoscopy History of appendectomy Family History Mother Lung cancer Social History Household Members: Spouse Housing: Condominium Alcohol intake: current Alcohol intake frequency: does not drink Patient Tobacco Use Status: Never used Tobacco e-Cigarette/Vaping Use: Never Used Second Hand Smoke Exposure: No service: No 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 Adrian Limon, Kimberley Zavala, Ramon Mackay and colleagues, with an educational balaji from [employer]. Physical exam (Primary Care) Tobacco/Smoking Status: Tobacco use Status Tobacco use date assessed 03/29/24 08/10/24 09:39 Patient Tobacco Use Status Never used Tobacco 08/10/24 09:39 e-Cigarette/Vaping Use Never Used 08/10/24 09:39 Thrive Assessment: Date of Thrive Assessment Date Thrive assessed 03/29/24 08/10/24 09:39 Coding
[2024-08-15 14:15] VITALS: BP 96/54; PULSE 93; RESP 14; TEMP 37.1; O2SAT 95; BMI 33.4
--- NOTE | 2024-08-15 14:15 | AM.OFFWIN_ITS ---
Intake Vital Signs 08/15/24 14:15 Height 5 ft 10 in Weight 233 lb 2 oz BMI 33.4 BP 96/54 L Blood Pressure Location Rt brachial Position Sitting Respiration 14 Pulse 93 Pulse Source Pulse Oximeter Temp 98.7 F Temp Source Oral Pulse Oximetry (%) 95 Oxygen Delivery Method Room Air Intake Visit Reasons: Blocked ears, cold for over a month Intake Note: Blocked ears, worse on the right. Saw Dr Randolph back in June. Was told to take decongestant but as soon as he stopped taking sxs started up again. Patient Tobacco Use Status: Never used Tobacco Allergies No Known Allergies Allergy (Verified 08/15/24 14:14) HPI HPI Comments History of Present Illness Details This is a 73-year-old male with controlled type 2 diabetes, hypertension and obstructive sleep apnea presenting for ear problems. His symptoms began 6 weeks ago. He endorses bilateral ear congestion that is worse on the right than the left. He has chronic hearing loss and wears bilateral hearing aids, but he can not hear anything out of his right ear since this began. He endorses right ear pressure. The symptoms temporarily improved when he took Sudafed, but he knows he can not take it jail and was only on it for a few days. He takes loratadine daily for seasonal allergies. He does typically get allergies in the fall. He has some postnasal drip and a cough in the morning which then resolves. ROS: Constitutional: No fevers or chills ENT: No tinnitus, + see HPI, no sore throat, no sinus pain or purulent nasal drainage, no otorrhea Respiratory: No shortness of breath Neurologic: No headache or dizziness. Physical exam: Constitutional: Alert, in no distress. Ear, Nose and Throat: Canals clear. Left TM mildly erythematous. The right tympanic membrane is erythematous and bulging with an absent light reflex. Nasal mucosa is mildly pale. Mild cobblestoning in the throat. Sinuses nontender. Neck: Supple, Full range of motion. No lymphadenopathy. Respiratory: Clear to auscultation. Cardiovascular: S1 S2 regular. No murmurs. [facility] Medical History Sleep apnea Diabetes Elevated cholesterol HTN (hypertension) GERD (gastroesophageal reflux disease) Encounter for screening Surgical History History of endoscopy Status post right foot surgery H/O colonoscopy History of appendectomy Family History Mother Lung cancer Social History Household Members: Spouse Housing: [facility] Alcohol intake: current Alcohol intake frequency: does not drink Patient Tobacco Use Status: Never used Tobacco e-Cigarette/Vaping Use: Never Used Second Hand Smoke Exposure: No service: No 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 occupational exposures/hazards: No Cognitive needs: No Hearing needs: Yes (Hearing aides) Vision needs: Yes (Patient wears glasses.) Physical Exam Vital Signs: Last Vital Signs Temp 98.7 F 08/15/24 14:15 Pulse 93 08/15/24 14:15 Resp 14 08/15/24 14:15 BP 96/54 L 08/15/24 14:15 Pulse Ox 95 08/15/24 14:15 Oxygen Delivery Method Room Air 08/15/24 14:15 BMI result Body Mass Index 33.4 Assessment & Plan Assessment & Plan (1) Right otitis media: Code(s): H66.91 - Otitis media, unspecified, right ear Qualifiers: Otitis media type: suppurative Chronicity: acute Recurrence: non- recurrent Spontaneous tympanic membrane rupture: without spontaneous rupture Qualified Code(s): H66.001 - Acute suppurative otitis media without spontaneous rupture of ear drum, right ear (2) Perennial allergic rhinitis: Code(s): J30.89 - Other allergic rhinitis Plan Patient will be treated with a ten-day course of Augmentin. Recommended taking the medication with food and having yogurt and probiotics daily. Side effects reviewed. Complete the entire course of antibiotics even if you feel better. I prescribed a brief course of prednisone to alleviate congestion and calm allergic rhinitis symptoms. We discussed that is can cause elevated blood pressure, but his blood pressure actually has been running low normal. It can also cause hyperglycemia so he will monitor glucose- he uses a sensor for this. Diabetes is well-controlled. Continue daily antihistamine. Follow up if symptoms do not resolve or worsen. Medications: New amoxicillin-pot clavulanate 875-125 mg 1 tab PO BID 10 days 20 tabs 0RF prednisone 40 mg (2 x 20 mg) PO DAILY 3 days 6 tabs 0RF Coding Level of Care Code Est Pt Level 4 (72679) Diagnoses Non-recurrent acute suppurative otitis media of right ear without spontaneous rupture of tympanic membrane H66.001 Otitis media type: suppurative Chronicity: acute Recurrence: non-recurrent Spontaneous tympanic membrane rupture: without spontaneous rupture Perennial allergic rhinitis J30.89
== END 2024-08-15 15:09 | disposition home or self-care (01) ==
PROVIDERS: PCP Family Medicine; Visit Provider Physician Assistant Medical
DX: H66.001 Acute suppurative otitis media without spontaneous rupture of ear drum, right ear (principal); J30.89 Other allergic rhinitis

== ENCOUNTER → 2024-08-15 14:06 | Outpatient (BNVA) | payer MEDICARE, SELFPAY | PROVIDERS: PCP Family Medicine | DX: H66.001 Acute suppurative otitis media without spontaneous rupture of ear drum, right ear (principal); J30.89 Other allergic rhinitis | CPT/HCPCS: 99212 ==

== ENCOUNTER 2024-08-30 13:36 | Outpatient (AMB) | payer MEDICARE, SELFPAY ==
[2024-08-30 13:41] VITALS: BP 124/70; PULSE 85; BMI 33.8
--- NOTE | 2024-08-30 13:41 | A.OFFVIS_ITS ---
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 He saw an deputy fire marshal about 4 or 5 years ago at [facility]. He was living in [place] at the time. Today he is accompanied by his . He was diagnosed with Type II DM in the early 1999s. He has libre3. Reviewed data during the last 14 days: GMI 7.7% 95% active Average glucose 184 Very high 16% High 26% Target 58% 0% hypoglycemia Hemoglobin a1c 7.3% 07/13/2024. Current medication regimen: Metformin 1000 mg twice daily, Lantus 46 units and Humalog 10 units before meals. Compliance issues: Administers Humalog a 1/2 hour before meals or sometimes after he starts eating or after the meal. Diet: Breakfast-eggs, cottage cheese, 1 slice of rye toast, mosquera, coffee with sugar free creamer) Lunch- leftovers like protein and veggies, soup and crackers, sandwich (made on wrap), diet gatorade or water Dinner- protein and vegetable at home, sweet potato, water and diet gatorade Snacks/desserts: none No alcohol Nonsmoker Golfs, tries to walk every so often with his Hypoglycemia symptoms: He had 1 low blood sugar within the past month. [place] shaky. Hyperglycemia symptoms: None Eye exam: Up-to-date Microvascular complications: neuropathy, retinopathy (Dr. Cannon at [facility]) Macrovascular complications: none Allergy to lisinopril-angioedema. Hyperlipidemia: treated with atorvastatin 10 mg. ROS: Constitutional: No unexplained weight loss, fever, chills. Eyes: No vision changes Respiratory: No shortness of breath Cardiovascular: No chest pain Gastrointestinal: No anorexia, nausea, vomiting or diarrhea. No abdominal pain Neurologic: No headache, dizziness, syncope Skin: No open wounds Physical exam: Constitutional: Alert, in no distress. Head: Normocephalic. Neck: Supple, Full range of motion. No lymphadenopathy. No palpable thyroid masses. Respiratory: Clear to auscultation. Cardiovascular: S1 S2 regular. No murmurs. Right foot: Warm and well perfused. No clubbing, cyanosis or edema. DP pulse 2+. Decreased vibratory sensation. Decrease sensation to monofilament in the toes. Left foot: Warm and well perfused. No clubbing, cyanosis or edema. DP pulse 2+. Decreased vibratory sensation. Absent sensation to monofilament in the toes. [facility] Medical History (Updated 08/30/24 @ 16:52 by GERARDO Adame) Type 2 diabetes mellitus with insulin therapy Sleep apnea Diabetes Elevated cholesterol HTN (hypertension) GERD (gastroesophageal reflux disease) Encounter for screening Surgical History History of endoscopy Status post right foot surgery H/O colonoscopy History of appendectomy Family History Mother Lung cancer Social History Household Members: Spouse Housing: Condominium Alcohol intake: current Alcohol intake frequency: does not drink Patient Tobacco Use Status: Never used Tobacco e-Cigarette/Vaping Use: Never Used Second Hand Smoke Exposure: No service: No 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 occupational exposures/hazards: No Cognitive needs: No Hearing needs: Yes (Hearing aides) Vision needs: Yes (Patient wears glasses.) Physical Exam Vital Signs: Last Vital Signs Pulse 85 08/30/24 13:41 BP 124/70 08/30/24 13:41 BMI result Body Mass Index 33.8 Results Reviewed Results Reviewed: Laboratory Last Values Glucose (Clinic) 200 mg/dL (60-115) H 08/30/24 13:54 Laboratory Tests 03/24/24 03/24/24 03/29/24 07:04 07:09 12:11 Creatinine Estimated GFR Hgb A1c (Clinic) 6.8 H Triglycerides 141 Cholesterol 116 LDL Cholesterol, Calc 48 HDL Cholesterol 40 L Urine Creatinine 92.67 Urine Microalbumin 10.0 Microalb/Creat Ratio 10.7 07/07/24 07/13/24 07:33 08:33 Creatinine 1.02 Estimated GFR > 60 Hgb A1c (Clinic) 7.3 H Triglycerides Cholesterol LDL Cholesterol, Calc HDL Cholesterol Urine Creatinine Urine Microalbumin Microalb/Creat Ratio Assessment & Plan Assessment & Plan (1) Type 2 diabetes mellitus with insulin therapy: Code(s): E11.9 - Type 2 diabetes mellitus without complications; Z79.4 - terminal gauger (current) use of insulin Category: Medical Plan In summary this is a 74-year-old male with a suboptimally controlled type 2 diabetes on basal bolus insulin and metformin. Discussed pathophysiology of Type II Diabetes Mellitus with the patient in detail.? I explained the press tender long goods risks and complications associated with unc ontrolled diabetes including nephropathy, neuropathy, peripheral vascular disease, retinopathy, increased risk of heart disease and stroke.? Discussed lifestyle modification with the patient. Recommended 30 minutes of moderately vigorous exercise 5 days per week to promote weight loss. We discussed his goals. He wants to work on weight loss and decrease the amount of insulin he can take if it all possible. I will prescribe Mounjaro. He denies contraindications to the medication. Side effects and administration reviewed. Discussed the need for titration based on tolerability and response. Ultimately he would like to titrate Mounjaro to see if he can stop Humalog. Once he starts Mounjaro he can decrease Humalog to 8 units before meals. We reviewed proper administration of the medication. Medication should be administered 15 minutes before meals. Continue Lantus 46 units. We reviewed proper treatment of hypo and hyperglycemia. They have glucose tablets at home. He is having lab work done next week. Added screening BNP level and vitamin B12 since he is on metformin. Declines referral to center medical director and dietitian at this time. Follow up in about 4 weeks after starting Mounjaro. Orders: Orders B Type Natriuretic Peptide Today E11.9 - Type 2 diabetes mellitus without complications Vitamin B12 Today E11.9 - Type 2 diabetes mellitus without complications Medications: New tirzepatide (Mounjaro) for 4 weeks 2.5 mg (0.5 mL) subcut QWEEK 2 mL 0RF Refilled atorvastatin 10 mg PO DAILY 90 tabs 3RF E78.5 - Hyperlipidemia, unspecified Patient Instructions: Start Mounjaro 2.5 mg once weekly. Continue Metformin 1000 mg twice daily. Humalog inject 15 minutes before meals. Once you start Mounjaro, you can decrease Humalog to 8 units before meals. Continue Lantus 46 units every morning at this time. Coding Level of Care Code New Pt Level 5 (43150) Complex EM visit Add On G2211 Diagnoses Type 2 diabetes mellitus with insulin therapy E11.9; Z79.4 Time Spent (min) 68 Comment Reviewing chart, direct patient care, completing documentation
[2024-08-30 13:57] LABS: Glucose, Whole Blood 200 mg/dL (60-115)
== END 2024-08-30 15:04 | disposition home or self-care (01) ==
PROVIDERS: PCP Family Medicine; Visit Provider Physician Assistant Medical
DX: E11.9 Type 2 diabetes mellitus without complications (principal); Z79.4 Long term (current) use of insulin

== ENCOUNTER → 2024-08-30 13:36 | Outpatient (BNVA) | payer MEDICARE, SELFPAY | PROVIDERS: PCP Family Medicine; Visit Provider Physician Assistant Medical | DX: E11.9 Type 2 diabetes mellitus without complications (principal); Z79.4 Long term (current) use of insulin; Z79.84 Long term (current) use of oral hypoglycemic drugs | CPT/HCPCS: 82947; 99212 ==

== ENCOUNTER 2024-09-08 08:19 | Outpatient (REF) | payer MEDICARE, SELFPAY ==
[2024-09-08 11:00] LABS: MANUAL DIFF FLAG NO
[2024-09-08 11:11] LABS: Basophils Percent Auto 0.5 % (0-2); Eosinophils Absolute Auto 0.2 X10*3/uL (0.0-0.4); Hematocrit 43.3 % (42.0-52.0); Hemoglobin 14.5 g/dl (14.0-18.0); Imm Gran Abs Auto 0.04 X10*3/uL (0.00-0.03); Imm Gran Pct Auto 0.6 % (0.0-0.4); Lymphocytes Absolute Auto 1.4 X10*3/uL (1.2-4.9); Lymphocytes Percent Auto 21.4 % (20-40); Mean Corpuscular HGB Conc 33.5 g/dl (31.0-36.0); Mean Corpuscular Hemoglobin 31.3 pg (27.0-33.0); Mean Corpuscular Volume 93.5 fL (80.0-98.0); Mean Platelet Volume 9.2 fL (9.4-12.4); Monocytes Absolute Auto 0.5 X10*3/uL (0.1-1.2); Monocytes Percent Auto 7.8 % (2-11); Neutrophils Absolute Auto 4.3 x10*3/uL (2.0-8.3); Neutrophils Percent Auto 66.7 % (45-73); Platelet Count 140 X10*3/uL (160-400); Red Blood Count 4.63 X10*6/uL (4.60-5.80); Red Cell Distribution Width 13.4 % (11.0-16.0); White Blood Count 6.4 X10*3/uL (4.8-10.8)
[2024-09-08 11:21] LABS: B Type Natriuretic Peptide 25 pg/mL (<100)
[2024-09-08 11:32] LABS: Alanine Aminotransferase 29 U/L (0-40); Alkaline Phosphatase 63 U/L (39-117); Anion Gap 13 (12-20); Aspartate Amino Transferase 32 U/L (5-37); Bilirubin Total 0.9 mg/dL (0.0-1.0); Blood Urea Nitrogen 24 mg/dL (9-16); Calcium 9.7 mg/dL (8.4-10.2); Carbon Dioxide 28 mmol/L (22-29); Chloride 104 mmol/L (96-108); Estimated Glomerular Filt Rate > 60; Glucose Random 141 mg/dL (60-115); Potassium 4.2 mmol/L (3.3-5.1); Sodium 141 mmol/L (135-145); Total Protein 6.4 g/dL (6.5-8.0)
[2024-09-08 12:07] LABS: Vitamin B12 305 pg/mL (200-900)
== END 2024-09-08 08:20 | disposition home or self-care (01) ==
LOC: HO.WFDLDS 08:19
PROVIDERS: Referring Provider Physician Assistant Medical; Visit Provider Family Medicine
DX: Z00.00 Encounter for general adult medical examination without abnormal findings (principal); D69.6 Thrombocytopenia, unspecified; E11.9 Type 2 diabetes mellitus without complications
CPT/HCPCS: 36415; 80053; 82607; 83880; 85025

== ENCOUNTER 2024-09-14 08:15 | Outpatient (AMB) | payer MEDICARE, SELFPAY ==
--- NOTE | 2024-09-14 08:43 | MHC.PC.OV ---
Vital Signs 09/14/24 08:45 Weight 232 lb 8 oz BP 111/57 L Blood Pressure Location Lt brachial Position Sitting Respiration 14 Pulse 78 Pulse Source Pulse Oximeter Temp 97.2 F Temp Source Temporal Artery Scan Pulse Oximetry (%) 95 Oxygen Delivery Method Room Air Intake Visit Reasons: f/u diabetes Allergies lisinopril Allergy (Severe, Verified 08/30/24 14:29) Angioedema Medication List - Last Reconciled 09/14/24 by Poli Randolph MD aspirin (Adult Low Dose Aspirin) 81 mg PO DAILY atorvastatin 10 mg PO DAILY blood sugar diagnostic ([employer] Ultra Test strips) daily As directed, 90 days blood-glucose sensor ([employer] Linda 3 Sensor device) As directed every 14 days famotidine 20 mg PO BEDTIME 90 days flash glucose scanning reader ([employer] Linda 14 Day [place]) As directed flash glucose scanning reader (FreeStyle Linda 14 Day [place]) As directed flash glucose sensor (FreeStyle Linda 14 Day Sensor kit) As directed. 28 days fluticasone propionate 50 mcg/actuation (Flonase Allergy Relief) 1 spray intranasal Q12H 30 days Humalog KwikPen Insulin (insulin lispro) 10 units (0.1 mL) subcut TID 90 days NS insulin glargine (Lantus Solostar U-100 Insulin) 46 units (0.46 mL) subcut DAILY 90 days metformin ER 1,000 mg (2 x 500 mg) PO BID 90 days metronidazole 0.75% 1 appl topical DAILY PRN metronidazole 0.75% 1 appl topical BID 30 days miscellaneous medical supply Diabetic Shoes. Daily As directed. 999 days multivitamin 1 tab PO DAILY olopatadine 0.2% (Pataday Once Daily Relief) 1 drp ophthalmic (eye) QAM 30 days pen needle, diabetic Use 4 daily, As directed. Ninety day supply. tirzepatide (Mounjaro) 2.5 mg (0.5 mL) subcut QWEEK Tobacco use date assessed: 03/29/24 Dental Screening Dental Screen Date: 03/29/24 HPI f/u diabetes HPI Details Patient?returns?for?follow-up?diabetes. He?was?seen?2?weeks?ago?and?started?on?Mounjaro. Since?then,?his?blood?sugars?have?been?dropping?down?into?the?40s?overnight?in?in?the?morning. Daytime?readings?on?his?Linda?have?been?consistently?below?150 Taking?Mounjaro?2.5?mg?weekly, Lantus?44?units?daily, Humalog?8?units?with?meals?and?metformin?1000?mg?b.i.d.. He?has?been?wanting?to?decrease?his?insulin?usage. [facility] Medical History (Updated 08/30/24 @ 16:52 by GERARDO Adame) Type 2 diabetes mellitus with insulin therapy Sleep apnea Diabetes Elevated cholesterol HTN (hypertension) GERD (gastroesophageal reflux disease) Encounter for screening Surgical History History of endoscopy Status post right foot surgery H/O colonoscopy History of appendectomy Family History Mother Lung cancer Social History Household Members: Spouse [facility] Alcohol intake: current Alcohol intake frequency: does not drink Patient Tobacco Use Status: Never used Tobacco e-Cigarette/Vaping Use: Never Used Second Hand Smoke Exposure: No service: No 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 1. Little interest or pleasure in doing things: not at all 2. Feeling down, depressed, or hopeless: not at all 3. Trouble falling or staying asleep, or sleeping too much: not at all 4. Feeling tired or having little energy: not at all 5. Poor appetite or overeating: not at all 6. Feeling bad about yourself - or that you are a failure or have let yourself or your family down: not at all 7. Trouble concentrating on things, such as reading the newspaper or watching television: not at all 8. Moving or speaking so slowly that other people could have noticed. Or the opposite - being so fidgety or restless that you have been moving around a lot more than usual: not at all 9. Thoughts that you would be better off or of hurting yourself in some way: not at all Total score: 0 Source: Developed by Drs. Adrian Limon, Kimberley Zavala, Ramon Mackay and colleagues, with an educational balaji from [employer]. Thrive Questionnaire Date Thrive assessed: 03/29/24 I am a: Patient What is your living situation today?: I have a steady place to live Within the past 12 months, did the food you bought not last and you didn't have the money to get more?: Never true Within the past 12 months, did you worry whether your food would run out before you got money to buy more?: Never true Do you have trouble paying for medicines?: No Do you have trouble getting transportation to medical appointments?: No Do you have trouble paying your heating and electricity bill?: No Do you have trouble taking care of your child, family member or friend?: No Do you have trouble with day-to-day activities such as bathing, preparing meals, shopping, managing finances, etc.?: No Are you currently unemployed and looking for a job?: No Are you interested in more education?: No Please select the resources that you would like help with: None Currently or been in a relationship where the following occur: No concerns reported THRIVE Score: 0 AUDIT C Alcohol Use Questionnaire (AUDIT-C) 1. How often do you have a drink containing alcohol?: Never 2. How many drinks containing alcohol do you have on a typical day when you are drinking?: 1 or 2 3. How often do you have six or more drinks on one occasion?: Never Total Score: 0 WILD-7 AMB Questionnaire WILD-7 Date WILD - 7 assessed: 03/29/24 Feeling nervous, anxious, or on edge: 0 = Not at all Not being able to stop or control worryin = Not at all Worrying too much about different things: 0 = Not at all Trouble relaxin = Not at all Being so restless that it is hard to sit still: 0 = Not at all Becoming easily annoyed or irritable: 0 = Not at all Feeling afraid as if something awful might happen: 0 = Not at all Total WILD-7 score (0-4 normal; 5-9 mild; 10-14 moderate; 15-21 severe): 0 Source: Developed by Drs. Adrian Limon, Kimberley Zavala, Ramon Mackay and colleagues, with an educational balaji from [employer]. Review of Systems Const Denies chills, Denies fatigue, Denies fever(s), Denies headache(s) and Denies weakness ENT Denies dizziness and Denies headache(s) Card Denies chest pain, Denies lightheadedness, Denies dyspnea and Denies other (Palpitations) Resp Denies cough, Denies dyspnea, Denies wheezing and Denies other ( shortness of breath) Musc Denies numbness and Denies tingling Neuro Denies dizziness, Denies headache(s), Denies numbness, Denies tingling, Denies paresthesias and Denies weakness Psych Denies anxiety and Denies depression Endo Denies fatigue Aller/Immun Denies wheezing Physical exam (Primary Care) Tobacco/Smoking Status: Tobacco use Status Tobacco use date assessed 03/29/24 08/10/24 09:39 Patient Tobacco Use Status Never used Tobacco 08/15/24 14:19 e-Cigarette/Vaping Use Never Used 08/10/24 09:39 Thrive Assessment: Date of Thrive Assessment Date Thrive assessed 09/07/24 09/07/24 19:18 Currently or been in a relationship where the following occur: No concerns reported Const General: no acute distress and well developed Nutritional Appearance: well nourished Orientation/consciousness: patient oriented x3 [facility] Head: Yes normocephalic and Yes atraumatic Eyes General: appearance normal, both eyes and all related structures Pupils: Equal, round and reactive pupils present EOM: EOMs intact bilaterally Resp Effort & Inspection: normal respiratory effort Auscultation: clear to auscultation bilaterally Cardio Rate: regular rate Rhythm: regular rhythm Heart sounds: S1 normal heart sound present, S2 normal heart sound present, no gallops, no murmurs and no rubs Neuro General: patient oriented x3 and gait normal Cranial nerves: Yes Equal, round and reactive pupils present Psych Affect: normal affect Coding Level of Care Code Tele Est Pt Level 3 (09565) Diagnoses Type 2 diabetes mellitus with insulin therapy E11.9; Z79.4 Assessment & Plan Assessment & Plan (1) Type 2 diabetes mellitus with insulin therapy: Code(s): E11.9 - Type 2 diabetes mellitus without complications; Z79.4 - custodial (current) use of insulin Category: Medical Plan: Patient?has?had?significantly?low?blood?sugars?since?starting?Mounjaro which?he?is?tolerating?very?well?otherwise. Will?have?him?decrease?his?basal/bolus?insulin?and?I?explained?this?should?raise?all?of?his?blood?sugar?numbers; he?will?watch?his?daytime?numbers?and?use?Humalog?as?prescribed. Decreasing?Lantus?from?44?units?daily?to?38?units?daily. Continue?Humalog,?metformin?and?Mounjaro?as?prescribed He?has?an?upcoming?appointment?with?Valerie?Rose?in?about?3?weeks. Medications: New metronidazole 0.75% 1 appl topical BID 30 days 60 grams 4RF Changed From insulin glargine (Lantus Solostar U-100 Insulin) Brand name only. Dispense as written (IVANNA). 46 units (0.46 mL) subcut DAILY 90 days 45 mL 3RF E11.9 - Type 2 diabetes mellitus without complications To insulin glargine (Lantus Solostar U-100 Insulin) Brand name only. Dispense as written (IVANNA). 38 units (0.38 mL) subcut DAILY 90 days 34.2 mL 3RF E11.9 - Type 2 diabetes mellitus without complications
[2024-09-14 08:45] VITALS: BP 111/57; PULSE 78; RESP 14; TEMP 36.2; O2SAT 95
== END 2024-09-14 08:53 | disposition home or self-care (01) ==
LOC: HO.HMCFM 08:16
PROVIDERS: PCP Family Medicine; Visit Provider Family Medicine
DX: E11.9 Type 2 diabetes mellitus without complications (principal); Z79.4 Long term (current) use of insulin

== ENCOUNTER → 2024-09-14 08:15 | Outpatient (BNVA) | payer MEDICARE, SELFPAY | PROVIDERS: PCP Family Medicine; Visit Provider Family Medicine | DX: E11.9 Type 2 diabetes mellitus without complications (principal); Z79.4 Long term (current) use of insulin | CPT/HCPCS: 99212 ==

== ENCOUNTER 2024-09-27 13:34 | Outpatient (AMB) | payer MEDICARE, SELFPAY ==
--- NOTE | 2024-09-27 13:35 | MHC.OFFVIS ---
Vital Signs 09/27/24 13:38 Height 5 ft 10 in Weight 233 lb 7.512 oz BMI 33.5 BP 110/60 Blood Pressure Location Rt brachial Position Sitting Pulse 69 Pulse Source Pulse Oximeter Intake Visit Reasons: Type II DM Intake Note: Patient present today to follow up on Type 2 Diabetes Mellitus. Patient reports 2 Hypoglycemia in the morning. 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 Today he is accompanied by his . He was diagnosed with Type II DM in the early 1999s. He has libre3. Reviewed data during the last 14 days: Reviewed CGM download 09/14/2024 through 09/27/2024 CGM active 97% G NE 6.6% Average glucose 136 Glucose variability 25% Target range 90% 0% hypoglycemia 10% hyperglycemia. Hemoglobin a1c 7.3% 07/13/2024. Current medication regimen: Metformin 1000 mg twice daily, Lantus 38 units and Humalog 10 units before meals and Mounjaro 2.5 mg weekly. Patient just took his 3rd dose of Mounjaro. He denies side effects. Since starting it he he significant hypoglycemic events. His PCP decreasedLantus insulin to 38 units which helped, but he did have 3 lows since doing that. One was in the high 48 and the other was 58 and 67. Two occurred in the afternoon after humalog/lunch, and the other occurred in the morning. Today he did not take any Humalog before lunch. He has been administering 4-10 units before meals. Compliance issues: none Hypoglycemia symptoms: Shaky and weak Hyperglycemia symptoms: None Eye exam: Up-to-date Microvascular complications: neuropathy, retinopathy (Dr. Cannon at [place] [facility]) Macrovascular complications: none Allergy to lisinopril-angioedema. Hyperlipidemia: treated with atorvastatin 10 mg. ROS: Constitutional: No unexplained weight loss, fever, chills. Eyes: No vision changes Respiratory: No shortness of breath Cardiovascular: No chest pain Gastrointestinal: No anorexia, nausea, vomiting or diarrhea. No abdominal pain Neurologic: No headache, dizziness, syncope Skin: No open wounds Physical exam: Constitutional: Alert, in no distress. Head: Normocephalic. Neck: Supple, Full range of motion. No lymphadenopathy. No palpable thyroid masses. Respiratory: Clear to auscultation. Cardiovascular: S1 S2 regular. No murmurs. [facility] Medical History (Updated 08/30/24 @ 16:52 by GERARDO Adame) Type 2 diabetes mellitus with insulin therapy Sleep apnea Diabetes Elevated cholesterol HTN (hypertension) GERD (gastroesophageal reflux disease) Encounter for screening Surgical History History of endoscopy Status post right foot surgery H/O colonoscopy History of appendectomy Family History Mother Lung cancer Social History Household Members: Spouse Housing: [facility] Alcohol intake: current Alcohol intake frequency: does not drink Patient Tobacco Use Status: Never used Tobacco e-Cigarette/Vaping Use: Never Used Second Hand Smoke Exposure: No service: No 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 occupational exposures/hazards: No Cognitive needs: No Hearing needs: Yes (Hearing aides) Vision needs: Yes (Patient wears glasses.) Physical Exam Vital Signs: Last Vital Signs Pulse 69 09/27/24 13:38 BP 110/60 09/27/24 13:38 BMI result Body Mass Index 33.5 Assessment & Plan Assessment & Plan (1) Type 2 diabetes mellitus with insulin therapy: Code(s): E11.9 - Type 2 diabetes mellitus without complications; Z79.4 - nursing home (current) use of insulin Category: Medical Plan In summary this is a 74-year-old male with a controlled type 2 diabetes per CGM after recent adjustments to his medication regimen including addition of Moujaro. Discussed pathophysiology of Type II Diabetes Mellitus with the patient in detail.? 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 Discussed lifestyle modification with the patient. Recommended 30 minutes of moderately vigorous exercise 5 days per week to promote weight loss. His goals remain the same, that is to lose weight and decrease the amount of insulin he takes. He will take his last dose of Mounjaro 2.5 mg as scheduled. He will decrease Lantus to 30 units due to hypoglycemic events. He will decrease Humalog to 4 units before meals. He will increase Mounjaro to 5 mg one week after his last 2.5 mg injection and then trial stopping Humalog. Continue metformin 1000 mg twice daily. We reviewed proper treatment of hypo and hyperglycemia. They have glucose tablets at home. Follow up in about 4 weeks. He was asked to call sooner if he continues to experience hypoglycemia or if glucose readings are over 200. Medications: New tirzepatide (Mounjaro) 5 mg (0.5 mL) subcut QWEEK 2 mL 0RF Discontinued tirzepatide (Mounjaro) for 4 weeks Discontinued Reason: Doctor's Order 2.5 mg (0.5 mL) subcut QWEEK 2 mL 0RF Patient Instructions: Take 1 last dose of Mounjaro 2.5 mg and then increase to 5 mg once weekly Lantus decrease to 30 units in the morning. Decrease Humalog to 4 units before meals, and when you start the new dose of Mounjaro you can try stopping Humalog. Continue Metformin 1000 mg twice daily. Coding Level of Care Code Tele Est Pt Level 4 (69433) Complex EM visit Add On G2211 Diagnoses Type 2 diabetes mellitus with insulin therapy E11.9; Z79.4
[2024-09-27 13:38] VITALS: BP 110/60; PULSE 69; BMI 33.5
[2024-09-27 13:54] LABS: Glucose, Whole Blood 79 mg/dL (60-115)
== END 2024-09-27 14:18 | disposition home or self-care (01) ==
PROVIDERS: PCP Family Medicine; Visit Provider Physician Assistant Medical
DX: E11.9 Type 2 diabetes mellitus without complications (principal); Z79.4 Long term (current) use of insulin

== ENCOUNTER → 2024-09-27 13:34 | Outpatient (BNVA) | payer MEDICARE, SELFPAY | PROVIDERS: PCP Family Medicine; Visit Provider Physician Assistant Medical | DX: E11.9 Type 2 diabetes mellitus without complications (principal); Z79.4 Long term (current) use of insulin; Z79.84 Long term (current) use of oral hypoglycemic drugs | CPT/HCPCS: 82947; 99212 ==

== ENCOUNTER 2024-10-25 14:11 | Outpatient (AMB) | payer MEDICARE, SELFPAY ==
[2024-10-25 14:15] VITALS: BP 116/78; PULSE 88; BMI 33.5
--- NOTE | 2024-10-25 14:15 | MHC.OFFVIS ---
Vital Signs 10/25/24 14:15 Height 5 ft 10 in Weight 233 lb 7.512 oz BMI 33.5 BP 116/78 Blood Pressure Location Lt brachial Position Sitting Pulse 88 Pulse Source Pulse Oximeter Intake Visit Reasons: DM Intake Note: Patient present today for T2DM Last Diabetic eye exam: 04/2024 Last Podiatry Visit: 09/2024 Random Glucose: 166 mg/dl HgA1C: 7.1% Research Food Technologist Required: No Accompanied by: Spouse Allergies lisinopril Allergy (Severe, Verified 10/25/24 14:22) Angioedema HPI Comments Details: This is a 74-year-old male with a past medical history of obesity, PAMELA on CPAP, hypertension, type 2 diabetes, hyperlipidemia and thrombocytopenia presenting for diabetic management. Today he is accompanied by his . He was diagnosed with Type II DM in the early . He has libre3. Reviewed CGM data October 12 10/25/20242023 CGM active 97% Average glucose 153 GMI 7% Glucose variability 28.1% Very high 3% High 18% Target range 78% Low 1% Hemoglobin a1c 7.1% 10/25/24. Current medication regimen: Metformin 1000 mg twice daily, Lantus 30 units and Mounjaro 5 mg weekly. As instructed patient stopped Humalog except for taking it once on when he overdid it. He had one low blood sugar in the 50s when he forgot to eat something in the evening. Compliance issues: none Hypoglycemia symptoms: Shaky and weak Hyperglycemia symptoms: None Eye exam: Up-to-date Microvascular complications: neuropathy, retinopathy (Dr. Cannon at [facility]) Macrovascular complications: none Allergy to lisinopril-angioedema. Hyperlipidemia: treated with atorvastatin 10 mg. ROS: Constitutional: No unexplained weight loss, fever, chills. Eyes: No vision changes Respiratory: No shortness of breath Cardiovascular: No chest pain Gastrointestinal: No anorexia, nausea, vomiting or diarrhea. No abdominal pain Neurologic: No headache, dizziness, syncope Skin: No open wounds Physical exam: Constitutional: Alert, in no distress. Head: Normocephalic. Neck: Supple, Full range of motion. No lymphadenopathy. No palpable thyroid masses. Respiratory: Clear to auscultation. Cardiovascular: S1 S2 regular. No murmurs. COUNTS INCLUDE 234 BEDS AT THE [facility] Medical History (Updated 08/30/24 @ 16:52 by GERARDO Adame) Type 2 diabetes mellitus with insulin therapy Sleep apnea Diabetes Elevated cholesterol HTN (hypertension) GERD (gastroesophageal reflux disease) Encounter for screening Surgical History History of endoscopy Status post right foot surgery H/O colonoscopy History of appendectomy Family History Mother Lung cancer Social History Household Members: Spouse Housing: Condominium Alcohol intake: current Alcohol intake frequency: does not drink Patient Tobacco Use Status: Never used Tobacco e-Cigarette/Vaping Use: Never Used Second Hand Smoke Exposure: No service: No 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 occupational exposures/hazards: No Cognitive needs: No Hearing needs: Yes (Hearing aides) Vision needs: Yes (Patient wears glasses.) Physical Exam Vital Signs: Last Vital Signs Pulse 88 10/25/24 14:15 BP 116/78 10/25/24 14:15 BMI result Body Mass Index 33.5 Results AMB Hemoglobin A1c AMB Hemoglobin A1c 7.1 % Last Edit by DENIA Rivera on 10/25/24 14:33 Results Reviewed Results Reviewed: Laboratory Last Values Glucose (Clinic) 166 mg/dL (60-115) H 10/25/24 14:24 Assessment & Plan Assessment & Plan (1) Type 2 diabetes mellitus with insulin therapy: Code(s): E11.9 - Type 2 diabetes mellitus without complications; Z79.4 - half-way (current) use of insulin Category: Medical Plan In summary this is a 74-year-old male with a controlled type 2 diabetes with macrovascular complications. Discussed pathophysiology of Type II Diabetes Mellitus with the patient in detail.? 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 Discussed lifestyle modification with the patient. Recommended 30 minutes of moderately vigorous exercise 5 days per week to promote weight loss. His goals remain the same, that is to lose weight and decrease the amount of insulin he takes. Increase Mounjaro to 7.5 mg weekly and decrease Lantus to 26 units daily. If CGM shows that he is in target range less than 70% he will increase Lantus back to 28 or 30 units. If he experiences frequent hypoglycemia after increasing Mounjaro he can decrease Lantus further to 22 units and call the office. Remain off Humalog. Continue metformin 1000 mg twice daily. We reviewed proper treatment of hypo and hyperglycemia. They have glucose tablets at home. Follow up in 3 months for type 2 diabetes. Orders: Orders AMB Hemoglobin A1c Today E11.9 - Type 2 diabetes mellitus without complications, Z13.9 - Encounter for screening, unspecified, Z79.4 - half-way (current) use of insulin Medications: New tirzepatide (Mounjaro) 7.5 mg (0.5 mL) subcut QWEEK 2 mL 3RF Discontinued tirzepatide (Mounjaro) Discontinued Reason: Doctor's Order 5 mg (0.5 mL) subcut QWEEK 2 mL 0RF Patient Instructions: Continue Metformin 1000 mg twice daily. When you start the new dose of Mounjaro 7.5 mg weekly, you can decrease Lantus from 30 units to 26 units. Remain off Humalog. If your blood sugars are going higher (time in range on CGM is under 70%, increase Lantus back to 28 or 30 units). If you experience frequent low blood sugars you can decrease Lantus from 26 units to 22 units and contact the office. Coding Level of Care Code Est Pt Level 4 (30303) Complex EM visit Add On G2211 Diagnoses Type 2 diabetes mellitus with insulin therapy E11.9; Z79.4
[2024-10-25 14:28] LABS: Glucose, Whole Blood 166 mg/dL (60-115)
--- OUTSIDE RECORDS SUMMARY | 2024-10-26 22:01 | XMS_ITS ---
Author Organization [facility] Naomi rodriguez [place] Address [address] [place] [address] Care Team Providers Care Roll Repairer Name Role Phone Poli Randolph MD Primary Care Provider Rochelle Escobedo Unavailable [phone] Alexandr Meza Unavailable [phone] Allergies No Known Allergies Medications Medication SIG (Take, Route, Frequency, Duration) Notes Start Date End Date Status Cipro 750 MG 1 tablet Orally once a day for 14 days 09/02/2022 Not-Taking Multivitamin - 1 tablet Orally Once a day for 30 day(s) Active Extra Depth Diabetic Shoes with 3 Pair Custom heat-molded multi-density innersoles for 1 year Dx: 09/23/2022 Active metFORMIN HCl 500 MG 1 tablet with a ronnie l Orally Once a day for 30 day(s) Active metroNIDAZOLE 250 MG 1 tablet Orally Thr ee times a day for 10 day(s) Active Aspirin 81 MG 1 tablet Orally Once a day for 30 day(s) Active HumaLOG KwikPen 100 UNIT/ML Subcutaneous for 100 Active Lantus SoloStar 100 UNIT/ML Subcutaneous for 102 Active Atorvastatin Calcium 10 MG Oral for 90 Active Cephalexin 500 MG Oral for 4 N ot-Taking Famotidine Active Social History Tobacco Use: Social History Observation Description Date Details (start date - stop date) Never Smoker NA - NA Tobacco Use/Smoking Question Answer Notes Are you a: nonsmoker Additional Findings: Tobacco Non-User Current no n-smoker Alcohol Screen Question Answer Notes Did you have a drink contain ing alcohol in the past year? Yes How often did you have a dri nk containing alcohol in the past year? Monthly or less (1 point) Points 1 Interpretation Negative Tobacco use other than smoking: Question Answer Notes Are you an other tobacco user? No Vital Signs Height 5ft 10in in 09/29/2023 Weight 235 lbs 09/29/2023 BMI 33.72 kg/m2 09/29/2023 Procedures Procedure Date Ordered Date Performed Result Body Sit e 50805-GOJL SKIN LESIONS, 2 TO 4 09/29/2023 N/A B5668-[id number] DYSTROPHIC NAILS ANY # 09/29/2023 N/A Encounters Encounter Location Date Provider Diagnosis [facility] [address] [facility] [address] [place] [address] 09/29/2023 Alexandr Meza Type 2 diabetes mellitus with diabetic polyneuropathy E11.42 ; Tinea unguium B35.1 ; Pain in left foot M79.672 ; Hallux valgus (acquired), left foot M20.12 and Hallux valgus (acquired), right foot M20.11 Assessments Encounter Date Diagnosis (ICD Code) Assessment Notes Treatment Notes Treatment Clinical Notes Section Notes 09/29/2023 Type 2 diabetes mellitus with diabetic polyneuropathy (ICD-10 - E11.42) 09/29/2023 Tinea unguium (ICD-10 - B35.1) 09/29/2023 Pain in left foot (ICD-10 - M79.672) 09/29/2023 Hallux valgus (acquired), left foot (ICD-10 - M20.12) 09/29/2023 Hallux valgus (acquired), right foot (ICD-10 - M20.11) Plan Of Treatment Pending Test Test Name Order Date 18702-XPRR SKIN LESIONS, 2 TO 4 09/29/20 23 I1908-UEPBDVHP DYSTROPHIC NAILS ANY # Next Appt Details Follow Up: 1 Year, Reason: Provider Name:Rochelle carranza, 10/03/2025 10:00:00 AM, [address] [facility], [address], [place], [address], Procedure Notes * Category Sub-Category Detail Notes Keratoma Treatment Parring or Cutting o f Benign Hyperkeratotic Lesion(s) 93108 ( 2-4 Lesions ) - The Benign hyperkeratotic lesions, as described above were pared, and/or cut utilizing a sterile 15 blade, tissue nippers, and/or dremel Nail Reduction Nail Reduction Trimming of dyst rophic nails performed to reduce/remove overall nail length and girth, by manual and electrical means with use of a nail nipper and/or dremel, to more viable healthy nail plate or bed tissue 6-10 (G0127) Progress Notes * Scott CRUZ RDOB: [birth year] (73 yo M)Acc No.[id number]:09/29/2023 Progress Note Patient:?Scott Cruz Provider:?Alexandr Meza DPM :1950???Age:73 Y???Sex:Male Jose Angel e:09/29/2023 Address:[facility] [address] Pcp:Poli Randolph MD Subjective: * Chief Complaints: * ??? 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 * ROS:?General/Constitutional:?Nausea?denies, denies.?Vomiting?denies, denies.?Hunger Thirst?denies, denies.?Loss appetite?denies, denies.?Chills?denies, denies.?Fatigue?denies, denies.?Fever?denies, denies.?Night Sweats denies, denies.?Unexplained weight loss?denies, denies.?Unexplained weight gain?denies.?Ophthalmologic:?Blurred vision?denies.?Red eye?denies.?HEENTM:?Dentures?admits, denies.?Dizziness?denies, denies.?Glasses/contacts?denies, denies.?Retinopathy?denies, denies.?Blurred/double vision?denies, denies.?TMJ?denies, denies.?Discharge/drainage?denies, denies.?Implants?denies, denies.?Sore throat?denies.?Dental implants?denies.?Hard of hearing ?admits, denies.?Difficulty chewing/swallowing/speaking?denies, denies.?Nose bleeds?denies, denies.?Sore mouth?denies, denies.?Swollen glands?denies.?Respiratory:?On Oxygen?denies, denies.?Pneumonia/pleurisy?denies, denies.?Bronchitis?denies, denies.?Emphysema?denies, denies.?Coughing?denies, denies.?Cough blood?denies, denies.?Shortness of breath?denies, denies.?Wheezing?denies, denies.?Cardiovascular:?Pacemaker?denies, denies.?MVP?denies, denies.?WPW?denies, denies.?CHF?denies, denies.?Heart attack?denies, denies.?Septal defect?denies, denies.?Rapid beat?denies, denies.?Chest pain ?denies, denies.?Atrial Fib.?denies, denies.?Murmur/Palpitations?denies, denies.?Gastrointestinal:?Hemorrhoids?denies, denies.?Stomach/Abdominal pain?denies, denies.?Dark blood stool?denies, denies.?Irritable bowel ?denies, denies.?Constipation?denies, denies.?Diarrhea?denies, denies.?Vomiting?denies.?Hematology:?Swelling?denies, denies.?Clots?denies.?Varicose Veins?denies.?Bruising?denies, denies.?Bleeding problem?denies, denies.?Genitourinary:?Blood urine?denies, denies.?Frequent/Painfu/urination/bladder control?denies, denies.?Kidney stones?denies, denies.?Infection (UTI)?denies, denies.?Nephropathy?denies, denies.?sex trans dis (STD)?denies.?Prostate?denies.?Musculoskeletal:?Hammertoes?denies, denies.?Bunions?denies, denies.?Scoliosis/kyphosis?denies.?Back Pain?denies.?Muscle Cramps/ Resting?denies.?Muscle cramps / walking?denies, denies.?Generalized aches and pains?denies, denies.?Weakness?denies, denies.?Integ.:?Han?denies, denies.?Scars?denies, denies.?Corns/calluses?denies, denies.?Ingrown nails?admits, denies.?Painful nails?denies, denies.?Open Sores?denies.?Rashes?denies, denies.?Neurologic:?Difficulty sleeping?denies, denies.?Bipolar?denies.?Brain disorder?denies, denies.?Numbness?denies.?Balance trouble?denies, denies.?Confusion?denies, denies.?Fainting/blackouts?denies, denies.?Headache?denies.?Tingling?denies.?Tremors?denies, denies.? * Medical History:? * Surgical History:?appendecto my 1978foot surgery 2006 * Hospitalization/Major Diagno stic Procedure:?[facility]- inf wound 08/19/22 * Family History:?Mother: dece ased, diagnosed with Other malignant neoplasm of unspecified site.?Father: .?Siblings: diagnosed with Other malignant neoplasm of unspecified site.? * Social History:?Tobacco Use:?Tobacco Use/Smoking?Are you a:?nonsmoker ?Additional Findings: Tobacco Non-User?Current non-smoker ?Tobacco use other than smoking?Are you an other tobacco user??No ???Drugs/Alcohol:?Drugs?Have you used drugs other than those for medical reasons in the past 12 months??No ?Alcohol Screen?Did you have a drink containing alcohol in the past year??Yes ?How often did you have a drink containing alcohol in the past year??Monthly or less (1 point) ?Points?1 ?Interpretation?Negative ???Miscellaneous:?Caffeine: yes, frequency:, 1-2 cups per day. ?Marital status: . ?Occupation: Retired. * Medications:?TakingFamotidin e Aspirin 81 MG Tablet Delayed Release 1 tablet Orally Once a dayAtorvastatin Calcium 10 MG Tablet Oral HumaLOG KwikPen 100 UNIT/ML Solution Pen-injector Subcutaneous Lantus SoloStar 100 UNIT/ML Solution Pen-injector Subcutaneous metFORMIN HCl 500 MG Tablet 1 tablet with a meal Orally Once a daymetroNIDAZOLE 250 MG Tablet 1 tablet Orally Three times a dayMultivitamin - Tablet 1 tablet Orally Once a dayExtra Depth Diabetic Shoes with 3 Pair Custom heat- molded multi-density innersoles for 1 year Dx:Taking Famotidine Taking Aspirin 81 MG Tablet Delayed Release 1 tablet Orally Once a dayTaking Atorvastatin Calcium 10 MG Tablet Oral Taking HumaLOG KwikPen 100 UNIT/ML Solution Pen-injector Subcutaneous Taking Lantus SoloStar 100 UNIT/ML Solution Pen-injector Subcutaneous Taking metFORMIN HCl 500 MG Tablet 1 tablet with a meal Orally Once a dayTaking metroNIDAZOLE 250 MG Tablet 1 tablet Orally Three times a dayTaking Multivitamin - Tablet 1 tablet Orally Once a dayTaking Extra Depth Diabetic Shoes with 3 Pair Custom heat-molded multi-density innersoles for 1 year Dx:Not-Taking/PRNCephalexin 500 MG Capsule Oral Cipro 750 MG Tablet 1 tablet Orally once a dayMedication List reviewed and reconciled with the patientNot-Taking/PRN Cephalexin 500 MG Capsule Oral Not-Taking/PRN Cipro 750 MG Tablet 1 tablet Orally once a dayMedication List reviewed and reconciled with the patient * Allergies:?N.K.D.A.yes[Aller gies Verified] Objective: * Vitals:?Ht: 5ft 10in, Wt:235 , BMI:33.72, Shoe size: 13, BS: 115, Ht-cm: 177.8 cm, Wt-k.59 kg. * ???Past Orders: ???Lab:HEMOGLOBIN A1C (GLYCO HEMOGLOBIN) (Order Date - 09/29/2023) (Collection Date - 09/29/2023) ? Value Reference Range ?HEMOGLOBIN A1C % (HH) 6.5 * Examination: ???General Examination: ?GENERAL APPEARANCE:?pleasant, alert, well nourished, well developed, well hydrated, with good attention to hygene/body habitus, and in no acute distress.?ORIENTED:?person,place, and time.?FOOT EXAM:?Neurological: ?SENSORY:? Neurological exam demonstrates, reduced vibration sensation, 5.07 monofilament test performed at plantar aspects of 5 varied sites per foot shows sensation, reduced , B/L, 5.07 monofilament test performed at plantar aspects of 5 varied sites per foot shows sensation, reduced , at Forefoot, B/L.?BABINSKI REFLEX:?absent.?Vascular: ?DP PULSES:? 1/4, B/L.?PT PULSES:? /4, B/L.?CAPILLARY FILL TIME:?3 secs. per digit, B/L.?SKIN TEMPERTURE GRADIENT OF THE LOWER EXTERMITIES:?warm to cool, proximal to distal, B/L.?HAIR GROWTH/TEXTURE/ELASTICITY/TURGOR:?normal, B/L.?PIGMENTATION:?normal, B/L.?EDEMA:?no edema, B/L.?TELANGECTASIA:?absent.?VARICOSITIES:?absent.?Dermatologic: ?SKIN FINDINGS:? Skin exam reveals Keratotic lesion(s) located at, Medial plantar, IPJ, TA, T5.?Orthopedic: ?MUSCLE STRENGTH:?5/5 all groups in a symmetrical fashion , B/L.?GAIT ABNORMALITY:?pronated, abducted, B/L.?BUNION:? Medially prominent 1st MPJ, B/L, Lateral tracking 1st MPJ incompletely reducable.?Nails: ?NAILS are:? Elongated, overgrown, dystrophic, lytic, greater than 3mm thick, discolored and friable with crumbly malodorous subungual debris, with dull to no pain on palpation due to neuropathy, T1, T5, T6; , TA is 70% regrown with mild distal mycosis, proximal clearing of nail __80__ percent.? Assessment: * Assessment: 1.?Tinea unguium - B35.1?2.? Type 2 diabetes mellitus with diabetic polyneuropathy - E11.42 (Primary)?3.?Pain in left foot - M79.672?4.?Hallux valgus (acquired), left foot - M20.12?5.?Hallux valgus (acquired), right foot - M20.11? Plan: * Treatment: * Procedures:?Keratoma Treatment:?Parring or Cutting of Benign Hyperkeratotic Lesion(s)?66030 ( 2-4 Lesions ) - The Benign hyperkeratotic lesions, as described above were pared, and/or cut utilizing a sterile 15 blade, tissue nippers, and/or dremel.?Nail Reduction:?Nail Reduction?Trimming of dystrophic nails performed to reduce/remove overall nail length and girth, by manual and electrical means with use of a nail nipper and/or dremel, to more viable healthy nail plate or bed tissue 6-10 (G0127).? * Procedure Codes:?63276 TRIM SKIN LESIONS, 2 TO 4, Modifiers: XS G0127 TRIMMING DYSTROPHIC NAILS ANY #, Modifiers: XS * Preventive Medicine:? ??Counseling:?Discussion:?-14: Office or other outpatient visit for the evaluation and management of an established patient, which required a medically appropriate history and/or examination and MODERATE level of DECISION MAKING for: 1 OR MORE CHRONIC PROBLEM(S) THATS WORSENING, 2 STABLE CHRONIC PROBLEMS, A NEWLY DIAGNOSED PROBLEM WITH UNCERTAIN PROGNOSIS, AN ACUTE COMPLICATED INJURY WITH MULTIPLE TREATMENT OPTIONS, OR AN ACUTE PROBLEM WITH ACCOMPANYING SYSTEMIC SYMPTOMS, THAT POSE(S) A MODERATE RISK OF MORBIDITY. THIS CONDITION MAY ALSO INCLUDE RX DRUG MANAGEMENT, OR A DECISON FOR MINOR SURGERY. The visit on the day of the encounter encompassed interpreting the data and educating the patient as to the nature of their condition, treatment options available according to their individual PMH, meds, allergies, and overall health/living conditions, as well as any potential risks or complications that may occur from a failure to adhere to, and participate in, the recommended course of therapy. The discussion included a complete verbal, and/or written explanation of the examination results, any x-rays taken, the proposed diagnosis, and outline of the treatment plan. A schedule for future care needs was also explained. The patient verbalized an understanding of the instructions at this time and agreed to be an active participant in their treatment. If the patient should think of any questions or concerns after the visit, I have encouraged the patient to call the office--continue with wide extra depth sneakers and pt to continue wiht daily vicks to nails qd hs.? * Follow Up:?1 Year * Images: * Sign off status: Completed true * Provider:?Alexandr Meza DPM Date:? 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 Examination Category Sub-Category Detail Notes Category Not es Neurological SENSORY: Neurological exa m demonstrates, reduced vibration sensation, 5.07 monofilament test performed at plantar aspects of 5 varied sites per foot shows sensation, reduced , B/L, 5.07 monofilament test performed at plantar aspects of 5 varied sites per foot shows sensation, reduced , at Forefoot, B/L BABINSKI REFLEX: absent Dermatologic SKIN FINDINGS: Skin exam reveal s Keratotic lesion(s) located at, Medial plantar, IPJ, TA, T5 Orthopedic GAIT ABNORMALITY: pronated, abducted, B/L BUNION: Medially prominent 1 st MPJ, B/L, Lateral tracking 1st MPJ incompletely reducable MUSCLE STRENGTH: 5/5 all groups in a symmetrical fashion , B/L General Examination GENERAL APPEARANCE: pleasant , alert, well nourished, well developed, well hydrated, with good attention to hygene/body habitus, and in no acute distress FOOT EXAM: Lower Extremity Neurological Exa m performed:: Yes Visual exam of foot performed:: Yes Date: 09/29/2023 Sensory testing performed:: sensations d iminished Pedal pulse taking performed:: 1+ ORIENTED: person,place, and ti me Vascular DP PULSES(B): 1/4, B/L PT PULSES(B): 1/4, B/L CAPILLARY FILL TIME: 3 secs. per digit, B/L TEMPERTURE GRADIENT(C): warm to cool, pr oximal to distal, B/L TROPHIC CONDITION-TEXTURE/ELASTICITY/TURGOR/HAIR GROWTH(B): normal, B/L EDEMA(C): no edema, B/L TELANGECTASIA: absent VARICOSITIES: absent PIGMENTATION: normal, B/L Nails NAILS are: Elongated, overg rown, dystrophic, lytic, greater than 3mm thick, discolored and friable with crumbly malodorous subungual debris, with dull to no pain on palpation due to neuropathy, T1, T5, T6; , TA is 70% regrown with mild distal mycosis, proximal clearing of nail __80__ percent
--- OUTSIDE RECORDS SUMMARY | 2024-10-26 22:01 | XMS_ITS | Patient Health Record ---
Author Organization [facility] Address [address] [place] [address] Care Team Providers Care Herb Doctor Name Role Phone Poli Randolph MD Primary Care Provider Rochelle Escobedo Unavailable [phone] Alexandr Meza Unavailable [phone] Allergies No Known Allergies Results Component Value Reference Range Notes HEMOGLOBIN A1C (GLYCOHEMOGLO BIN) Reviewed date:10/04/2024 08:23:49 AM Interpretation: Performing Lab: Notes/Report: TOTAL HEMOGLOBIN (HGBA1C) 6.6 Reason For Referral No Information Medications Medication SIG (Take, Route, Frequency, Duration) Notes Start Date End Date Status Extra Depth Orthopedic Shoes (1 Pair) with Customized Heat Molded Multidensity Innersoles (3 Pair) as directed Dx: NIDDM/Polyneuropathy (E11.42), Hammertoe Foot Deformity (M20.41,M20.42), Preulcerative Skin Lesion(s) (L85.1 10/04/2024 Active Cephalexin 500 MG Oral for 4 N ot-Taking Extra Depth Diabetic Shoes with 3 Pair Custom heat-molded multi-density innersoles for 1 year Dx: 09/23/2022 N ot-Taking Multivitamin - 1 tablet Orally Once a day for 30 day(s) Active metroNIDAZOLE 250 MG 1 tablet Orally Thr ee times a day for 10 day(s) Active Atorvastatin Calcium 10 MG Oral for 90 Active Aspirin 81 MG 1 tablet Orally Once a day for 30 day(s) Active Famotidine Active Mounjaro Active Cipro 750 MG 1 tablet Orally once a day for 14 days 09/02/2022 Not-Taking metFORMIN HCl 500 MG 1 tablet with a ronnie l Orally Once a day for 30 day(s) Active Lantus SoloStar 100 UNIT/ML Subcutaneous for 102 Active HumaLOG KwikPen 100 UNIT/ML Subcutaneous for 100 Active Social History Tobacco Use: Social History [...] Are you an other tobacco user? No Problems Problem Type SNOMED Code ICD Code Onset Dates Problem Status W/U Status Risk Notes Problem Acquired hammer toe of right foot (3806711724457694 ) Other hammer toe(s) (acquired), right foot (M20.41) Active confirmed Problem Acquired hammer toe of left foot (8498161211702783 ) Other hammer toe(s) (acquired), left foot (M20.42) Active confirmed Problem Polyneuropathy due to type 2 diabetes mellitus (532173960) Type 2 diabetes mellitus with diabetic polyneuropathy (E11.42) Active confirmed Vital Signs Height 5ft 10in in 10/04/2024 Weight 232 lbs 10/04/2024 BMI 33.28 kg/m2 10/04/2024 Procedures Procedure Date Ordered Date Performed Result Body Sit e 73627-WDEUQFK NAIL, 1-5 10/04/2024 N/A 17694-EEDI SKIN LESIONS, 2 TO 4 10/04/2024 N/A H6397-KXAIPMRU DYSTROPHIC NAILS ANY # 10/04/2024 N/A Encounters Encounter Location Date Provider Diagnosis [facility] [address] [address] 10/04/2024 Rochelle Rojas Other hammer toe(s) (acquired), right foot M20.41 ; Other hammer toe(s) (acquired), left foot M20.42 ; Type 2 diabetes mellitus with diabetic polyneuropathy E11.42 and Tinea unguium B35.1 Assessments Encounter Date Diagnosis (ICD Code) Assessment Notes Treatment Notes Treatment Clinical Notes Section Notes 10/04/2024 Other hammer toe(s) (acquired), right foot (ICD-10 - M20.41) Patient Educated with: DIABETIC FOOT CARE INSTRUCTIONS. pdf (DIABETIC FOOT CARE INSTRUCTIONS. pdf) 10/04/2024 Other hammer toe(s) (acquired), left foot (ICD-10 - M20.42) 10/04/2024 Type 2 diabetes mellitus with diabetic polyneuropathy (ICD-10 - E11.42) 10/04/2024 Tinea unguium (ICD-10 - B35.1) Plan Of Treatment Pending Test Test Name Order Date X ray : Foot, left 3V 09/02/2022 94444-KZIKILY NAIL, 1-5 10/04/2024 19015-RPYN SKIN LESIONS, 2 TO 4 10/04/20 24 70810-CGXB SKIN LESIONS, 2 TO 4 09/29/20 23 A2950-HAFYACVV DYSTROPHIC NAILS ANY # Z7460-VYUWDPYA DYSTROPHIC NAILS ANY # Next Appt Details Provider Name:Rochelle Holder dillon, 10/03/2025 10:00:00 AM, [address] [facility], [facility] [address], [place], [address], Insurance Providers Payer Name Payer Address Payer Phone Subscriber Number Group Number Insured Name Patient Relationship to Insured Coverage Start Date Coverage End Date [employer] Medicare Adv-[id number] [address] [address] [place] [address] [id number] Scott Moncada Self - patient is the insured Medical (General) History Medical History History ICD Code Broken bones Diabetes mellitus, Type II, without comp lications Chicken pox Joint implants/screws Gastroesophageal reflux disease (GERD) Hypertension Surgical History Surgery Date(Month/Year) appendectomy 1978 foot surgery 2007 Hospitalization History Reason Date(Month/Year) [facility]- inf wound 08/19/22
--- OUTSIDE RECORDS SUMMARY | 2024-10-26 22:01 | XMS_ITS ---
Author Organization [facility] Naomi rodriguez [place] Address [address] [place] [address] Care Team Providers Care Plastics And Composites Inspector Name Role Phone Tomasa PERRY, Poli Primary Care Provider Rochelle Escobedo Unavailable [phone] Allergies No Known Allergies REASON FOR VISIT Toe Irritation, At Risk Footcare Medications Medication SIG (Take, Route, Frequency, Duration) Notes Start Date End Date Status Atorvastatin Calcium 10 MG Oral for 90 Active Aspirin 81 MG 1 tablet Orally Once a day for 30 day(s) Active Famotidine Active Mounjaro Active Cipro 750 MG 1 tablet Orally once a day for 14 days 09/02/2022 Not-Taking Extra Depth Orthopedic Shoes (1 Pair) with [...] times a day for 10 day(s) Active metFORMIN HCl 500 MG 1 tablet [...] Problem Acquired hammer toe of right foot (8839568368193 105) Other hammer toe(s) (acquired), right foot (M20.41) Active confirmed Problem Acquired hammer toe of left foot (3721603682048 103) Other hammer toe(s) (acquired), left foot (M20.42) Active confirmed Vital Signs Height 5ft 10in in 10/04/2024 Weight 232 lbs 10/04/2024 BMI 33.28 kg/m2 10/04/2024 Procedures Procedure Date Ordered Date Performed Result Body Sit e 82266-XXLCUUX NAIL, 1-5 10/04/2024 N/A 43387-FYYG SKIN LESIONS, 2 TO 4 10/04/2024 N/A K5122-CHVNRZYP DYSTROPHIC NAILS ANY # 10/04/2024 N/A Encounters Encounter Location Date Provider Diagnosis [facility] [address] [address] 10/04/2024 Rochelle Rojas Other hammer toe(s) (acquired), [...] unguium (ICD-10 - B35.1) Plan Of Treatment Medication Medication Name Sig Start Date Stop Date Notes Extra Depth Orthopedic Shoes (1 Pair) with Customized Heat Molded Multidensity Innersoles (3 Pair) as directed Dx: NIDDM/Polyneuropathy (E11.42), Hammertoe Foot Deformity (M20.41,M20.42), Preulcerative Skin Lesion(s) (L85.1 10/04/2024 Treatment Notes Assessment Notes Other hammer toe(s) (acquired), right fo ot Patient Educated with: DIABETIC FOOT CARE INSTRUCTIONS.pdf (DIABETIC FOOT CARE INSTRUCTIONS.pdf) Pending Test Test Name Order Date 94642-FKQUAPH NAIL, 1-5 10/04/2024 35051-VUZI SKIN LESIONS, 2 TO 4 10/04/20 24 R3762-SPAFYWCF DYSTROPHIC NAILS ANY # Next Appt Details Follow Up: 3 Months, Reason: Provider Name:Rochelle carranza, 10/03/2025 10:00:00 AM, [address] [facility], [address], [place], [address], Procedure Notes * Category Sub-Category Detail Notes Keratoma Treatment Parring or Cutting o f Benign Hyperkeratotic Lesion(s) (-56) 2-4 Lesions - The Benign hyperkeratotic lesions, as described in exam, were pared, and/or cut utilizing a sterile 15 blade, tissue nippers, and/or dremel - 06493 Debride Nails 1-5 Procedure: Performance of this nail treatment by a nonprofessional would put this patients foot and overall health at risk. Therefore, debridement to affected nail(s), as described in exam, was performed extensively to reduce/remove overall nail length, girth, thickness, subungual debris, and necrotic tissue, by manual and/or electrical means through the use of a nail nipper and/or dremel-type industrial coffee grinder, to a more viable healthy nail plate or bed tissue 1-5. Silver nitrate used for any petechial bleeding as necessary. Definitive antifungal treatment options have been reviewed and discussed with the patient. The patient chooses, no pharmaceutical tx will apply over the counter Ciclopirox gel 0.77 percent, - 43531 Nail Reduction Nail Reduction (-27) Trimming o f dystrophic nails, as described in exam, was performed to reduce/remove overall nail length and girth, by manual and electrical means with use of a nail nipper and/or dremel, to more viable healthy nail plate or bed tissue, any number - G0127 Progress Notes * Scott MONCADA RDOB: [birth year] (74 yo M)Acc No.[id number]:10/04/2024 Progress Note Patient:?Scott MONCADA Provider:?Rochelle Rojas DPM :1950???Age:74 Y???Sex:Male Jose Angel e:10/04/2024 Address:[facility] [place], [address] Pcp:Poli Randolph MD Subjective: * Chief Complaints: * ???Toe IrritationAt Risk Tessie tcare * HPI: ???Toe pain:?Location:?B/L feet.?Duration:?several years.?Course:?worse.?Aggravated by:?shoes, any pressure.?Treatments:?change in shoes.?At Risk footcare:?Pt States Last PCP Visit:?Date?09/05/2024 * ROS:?General/Constitutional:?Nausea?denies.?Vomiting?denies.?Hunger Thirst?denies.?Loss appetite?denies.?Chills?denies.?Fatigue?denies.?Fever?denies.?Night Sweats?denies.?Unexplained weight loss?denies.?Unexplained weight gain?denies.?HEENTM:?Dentures?admits.?Dizziness?denies.?Glasses/contacts?admits.?Retinopathy?de nies.?Blurred/double vision?denies.?TMJ?denies.?Discharge/drainage?denies.?Implants?denies.?Sore throat?denies.?Dental implants?denies.?Hard of hearing ?admits.?Difficulty chewing/swallowing/speaking?denies.?Nose bleeds?denies.?Sore mouth?denies.?Respiratory:?On Oxygen?denies.?Pneumonia/pleurisy?denies.?Bronchitis?denies.?Emphysema?denies.?C oughing?denies.?Cough blood?denies.?Shortness of breath?denies.?Wheezing?denies.?Cardiovascular:?Pacemaker?denies.?MVP?denies.?WPW?denies.?CHF?denies.?Heart attack?denies.?Septal defect?denies.?Rapid beat?denies.?Chest pain ?denies.?Atrial Fib.?denies.?Murmur/Palpitations?denies.?Gastrointestinal:?Hemorrhoids?denies.?Stomach/Abdominal pain?denies.?Dark blood stool?denies.?Irritable bowel ?denies.?Constipation?denies.?Diarrhea?denies.?Hematology:?Swelling?denies.?Clots?denies.?Varicose Veins?denies.?Bruising?denies.?Bleeding problem?denies.?Genitourinary:?Blood urine?denies.?Frequent/Painfu/urination/bladder control?denies.?Kidney stones?denies.?Infection (UTI)?denies.?Nephropathy?denies.?sex trans dis (STD)?denies.?Prostate?denies.?Musculoskeletal:?Hammertoes?denies.?Bunions?denies.?Back Pain?denies.?Muscle Cramps/ Resting?denies.?Muscle cramps / walking?denies.?Generalized aches and pains?denies.?Weakness?denies.?Integ.:?Han?denies.?Scars?denies.?Corns/calluses?denies.?Ingrown nails?admits.?Painful nails?denies.?Open Sores?denies.?Rashes?denies.?Neurologic:?Difficulty sleeping?denies.?Brain disorder?denies.?Numbness?denies.?Balance trouble?denies.?Confusion?denies.?Fainting/blackouts?denies.?Tingling?denies.?Tr emors?denies.? * Medical History:? * Surgical History:?appendecto my 1978foot surgery 2007 * Hospitalization/Major Diagno stic Procedure:?[facility]- inf wound [...] day. ?Marital status: . ?Occupation: Retired. * Medications:?TakingMounjaro Famotidine Aspirin 81 MG Tablet Delayed Release 1 tablet Orally Once a day Atorvastatin Calcium 10 MG Tablet Oral HumaLOG KwikPen 100 UNIT/ML Solution Pen-injector Subcutaneous Lantus SoloStar 100 UNIT/ML Solution Pen- injector Subcutaneous metFORMIN HCl 500 MG Tablet 1 tablet with a meal Orally Once a day metroNIDAZOLE 250 MG Tablet 1 tablet Orally Three times a day Multivitamin - Tablet 1 tablet Orally Once a day Taking Mounjaro Taking Famotidine Taking Aspirin 81 MG Tablet Delayed Release 1 tablet Orally Once a day Taking Atorvastatin Calcium 10 MG Tablet Oral Taking HumaLOG KwikPen 100 UNIT/ML Solution Pen-injector Subcutaneous Taking Lantus SoloStar 100 UNIT/ML Solution Pen-injector Subcutaneous Taking metFORMIN HCl 500 MG Tablet 1 tablet with a meal Orally Once a day Taking metroNIDAZOLE 250 MG Tablet 1 tablet Orally Three times a day Taking Multivitamin - Tablet 1 tablet Orally Once a day Not-Taking/PRNExtra Depth Diabetic Shoes with 3 Pair Custom heat-molded multi-density innersoles for 1 year Dx: Cephalexin 500 MG Capsule Oral Cipro 750 MG Tablet 1 tablet Orally once a day Medication List reviewed and reconciled with the patientNot-Taking/PRN Extra Depth Diabetic Shoes with 3 Pair Custom heat-molded multi-density innersoles for 1 year Dx: Not-Taking/PRN Cephalexin 500 MG Capsule Oral Not-Taking/PRN Cipro 750 MG Tablet 1 tablet Orally once a day Medication List reviewed and reconciled with the patient * Allergies:?N.K.D.A.yes[Aller gies Verified] Objective: * Vitals:?Ht: 5ft 10in, Wt: 23 2, BMI: 33.28, Shoe size: 13, BS: 105, Ht-cm: 177.8 cm, Wt-k.23 kg. * ???Past Orders: ???Lab:HEMOGLOBIN A1C (GLYCO HEMOGLOBIN) (Order Date - 10/04/2024) (Collection Date & Time - 10/04/2024 08:23 AM) ? Value Reference Range ?TOTAL HEMOGLOBIN (HGBA1C) 6.6 * Examination: ???General Examination: ?GENERAL APPEARANCE:?Reveals a pleasant, alert, well nourished, well- developed, well hydrated individual, who demonstrates proper attention to hygiene/body habitus, and is in no acute distress, Pt serves as own historian for office visit today.?ORIENTED:?person, place, and time.?FOOT EXAM:?Footwear Evaluation?Orthopedic: ?MUSCLE STRENGTH:?5/5 all groups in a symmetrical fashion, B/L.?DIGITAL DEFORMITIES:?Digital contracture, PIPJ, 2-5 B/L, incompl-reducible to push-up test, no over, nor underlapping,?there is?evidence of shoe producing skin irritation.?FOOTWEAR:?worn, non-supportive, shoe gear properties exacerbate patient's foot/toe deformity.?Vascular: ?DP PULSES(B):?11/19, B/L.?PT PULSES(B):? 11/19, B/L.?CAPILLARY FILL TIME:?3 secs. per digit, B/L.?TROPHIC CONDITION-TEXTURE/ELASTICITY/TURGOR/HAIR GROWTH(B):?normal, B/L.?TEMPERTURE GRADIENT(C):?warm to cool, proximal to distal, B/L.?PIGMENTATION:?normal, B/L.?EDEMA(C):?no edema, B/L.?TELANGECTASIA:?absent.?VARICOSITIES:?absent.?Neurological: ?SENSORY:?Neurological exam demonstrates reduced sharp/dull pin prick discrimination reduced light touch sensation reduced vibration sensation reduced proprioception sensation in a stocking fashion 5.07 monofilament test performed at plantar aspects of 5 varied sites per foot shows sensation plantar aspects absent at Forefoot B/L.?Nails: ?NAILS are:?Elongated, overgrown, dystrophic, lytic, greater than 3mm thick, discolored and friable with crumbly malodorous subungual debris, with dull to no pain on palpation due to neuropathy, TA, T9, remaining nails are elongated, overgrown, dystrophic.?Dermatologic: ?SKIN FINDINGS:?Skin exam reveals Keratotic lesion(s) located at sub 1st metatarsal head B/L.?Ophthalmology Referral: ?DIABETES EYE EXAM? Assessment: * Assessment: 1.?Other hammer toe(s) (acqu ired), right foot - M20.41 (Primary)???Specify :Chronic problem, Worse (4),Rx Management (4)???2.?Other hammer toe(s) (acquired), left foot - M20.42???Specify :Chronic problem, Worse (4),Rx Management (4)???3.?Type 2 diabetes mellitus with diabetic polyneuropathy - E11.42???4.?Tinea unguium - B35.1??? Plan: * Treatment: 2.?Type 2 diabetes mellitus with diabetic polyneuropathy?Procedure: 34321-UDRPSMH NAIL, 1-5 ?Procedure: 67462-HDXT SKIN LESIONS, 2 TO 4 ?Procedure: P1042-BSGOAMOR DYSTROPHIC NAILS ANY # * Procedures:?Debride Nails 1-5:?Procedure:?Performance of this nail treatment by a nonprofessional would put this patients foot and overall health at risk. Therefore, debridement to affected nail(s), as described in exam, was performed extensively to reduce/remove overall nail length, girth, thickness, subungual debris, and necrotic tissue, by manual and/or electrical means through the use of a nail nipper and/or dremel-type industrial coffee grinder, to a more viable healthy nail plate or bed tissue 1-5. Silver nitrate used for any petechial bleeding as necessary. Definitive antifungal treatment options have been reviewed and discussed with the patient. The patient chooses, no pharmaceutical tx will apply over the counter?Ciclopirox gel 0.77 percent, - 07440.?Keratoma Treatment:?Parring or Cutting of Benign Hyperkeratotic Lesion(s)?(-56) 2-4 Lesions - The Benign hyperkeratotic lesions, as described in exam, were pared, and/or cut utilizing a sterile 15 blade, tissue nippers, and/or dremel - 58288.?Nail Reduction:?Nail Reduction?(-27) Trimming of dystrophic nails, as described in exam, was performed to reduce/remove overall nail length and girth, by manual and electrical means with use of a nail nipper and/or dremel, to more viable healthy nail plate or bed tissue, any number - G0127.? * Procedure Codes:?57895 DEBRI DE NAIL, 1-5, Modifiers: XS G0127 TRIMMING DYSTROPHIC NAILS ANY #, Modifiers: XS 41574 TRIM SKIN LESIONS, 2 TO 4, Modifiers: XS * Preventive Medicine:? ??Counseling:?Discussion:?-14: Office [...] have encouraged the patient to call the office.?Digital Surgery:?Digital surgery was discussed with the patient, We elected to try conservative treatment at the present time, due to the patients medical history and increased asssociated post-operative risks.?Digital Treatment:?HT- I explained to the patient the possible etiologies of Hammertoes, including genetics/foot type/shoegear/activity level/exercise routine and the risks/benefits of all the different treatment options for their pain including: No treatment at all, Rest, Ice, New/supportive/wider/deeper Shoegear, Digital Padding/Strapping/Taping/Bracing/Gel protective sleeves, Foot/Ankle AFO Bracing, Stretching exercises, Deep Tissue Massage, Arch support/shoe inserts with splay metatarsal padding, and Custom orthoses. I insisted that any digital devices be removed daily and not worn overnight for safety. The patient is to carefully examine the toes daily for any skin irritation while using any splinting or padding device. The advantages and disadvantages of each option were discussed and the patients questions re: shoegear, padding, custom vs prefabricated inserts, activity level, and consistency in home treatment regimens for optimal success were answered to their verbally confirmed satisfaction.?Shoe Gear Counseling:?SHOE Rx - The patient was counseled in great detail on their muscoloskeletal foot and toe deformities which coincided with the dermatological presentations visualized on exam. We discussed how their deformities put the integrity of their feet at risk for potential pedal complications which makes the accomidative diabetic shoes and cutomizable inserts medically necessary. We discussed the different shoe and insert treatment types and options, as well as the important advantages for adhering to regularly wearing these accomidative devices daily. The patient was made aware of the fact that a failure to abide by these recommedations may be deleterious to their foot health as they are able to prevent many pedal complications such as skin irritation, skin ulceration, infection, and even loss of toe/foot/leg/or life. Time was also spent with the patient dispensing and discussing proper diabetic footcare techniques including daily skin moisturization, daily foot inspection for any interruption in skin integrity including open lesions, or sign of infection such as redness/malodor/drainage/swelling. Also discussed and recommended were procedures regarding daily shoe inspection for the presence of internal foreign bodies as well as any visualized irregular shoe or insert wear. Patient questions re: shoes, inserts, and self foot inspections were answered to their satisfaction as the patient verbally confirmed a full understanding of the above information. A Rx for Extra Depth Orthopedic Shoes with 3 pair of custom heat-molded inserts was dispensed.? * Follow Up:?3 Months * Images: * Sign off status: Completed true * Provider:?Rochelle Rojas DPM Date:?12/04/2023 Generated for Jolly thompson/Tamie/Tatianaitting on:?10/26/2024 10:00 PM EST History and Physical Notes * HPI (History of Present Illness) Category Sub-Category Detail Notes Category Not es Toe pain Location: B/L feet Duration: several years Course: worse Aggravated by: shoes, any pressure Treatments: change in shoes At Risk footcare Pt States Last PCP Visit: Date: 4 Examination Category Sub-Category Detail Notes Category Not es Neurological SENSORY: Neurological exa m demonstrates reduced sharp/dull pin prick discrimination reduced light touch sensation reduced vibration sensation reduced proprioception sensation in a stocking fashion 5.07 monofilament test performed at plantar aspects of 5 varied sites per foot shows sensation plantar aspects absent at Forefoot B/L Dermatologic SKIN FINDINGS: Skin exam reveal s Keratotic lesion(s) located at sub 1st metatarsal head B/L Orthopedic FOOTWEAR: worn, non-suppor tive, shoe gear properties exacerbate patient's foot/toe deformity DIGITAL DEFORMITIES: Digital contracture , PIPJ, 2-5 B/L, incompl-reducible to push-up test, no over, nor underlapping, there is evidence of shoe producing skin irritation MUSCLE STRENGTH: 5/5 all groups in a symmetrical fashion, B/L General Examination GENERAL APPEARANCE: Reveals a pleasant, alert, well nourished, well-developed, well hydrated individual, who demonstrates proper attention to hygiene/body habitus, and is in no acute distress, Pt serves as own historian for office visit today FOOT EXAM: Lower Extremity Neurological Exa m performed:: Yes ORIENTED: person, place, and t sasha Footwear Evaluation Footwear Evaluation performe d:: Yes Ophthalmology Referral DIABETES EYE EXAM Diabetic Retinopa thy Screening:: Yes Findings of Diabetic Eye Exam:: no retin opathy Vascular DP PULSES(B): 1/4, B/L PT PULSES(B): [...] no pain on palpation due to neuropathy, TA, T9, remaining nails are elongated, overgrown, dystrophic
--- OUTSIDE RECORDS SUMMARY | 2024-10-26 22:01 | XMS_ITS ---
Author Organization [facility] Address [address] [place] [address] Care Team Providers Care Front Man Name Role Phone Poli Randolph MD Primary Care Provider Rochelle Escobedo Unavailable [phone] Alexandr Meza [phone] Willoughby to Dr Rojas Encounters Encounter Location Date Provider Diagnosis [address] [address] 10/04/2024 Alexandr Meza Plan Of Treatment Next Appt Details Provider Name:Rochelle Holder dillon, 10/03/2025 10:00:00 AM, [facility] [address], [address], Progress Notes * ANTHONYScott NIXON RDOB: 8 (74 yo M)Acc No.[id number]:10/04/2024 Progress Note Patient:?Scott MONCADA Provider:?Alexandr Meza DPM :1950???Age:74 Y???Sex:Male Jose Angel e:10/04/2024 Address:[address], [place], [place]-[address] Pcp:Poli Randolph MD Subjective: * Chief Complaints: * ???1. Dr Willoughby to Dr Deepthi schrader * Medical History:? Objective: * Vitals:? Assessment: Plan: * Treatment: * Images: * The named appointment provid er may or may not be the originator of this progress note, and it is not deemed complete until electronically signed by the appointment provider. Sign off status: Pending * Provider:?Alexandr Meza DPM Date:? 024 Generated for Jolly thompson/Tamie/Tisha on:?10/26/2024 10:00 PM EST
== END 2024-10-25 14:44 | disposition home or self-care (01) ==
LOC: HO.ENCR 14:11
PROVIDERS: PCP Family Medicine; Visit Provider Physician Assistant Medical
DX: Z13.9 Encounter for screening, unspecified (principal); E11.9 Type 2 diabetes mellitus without complications; Z79.4 Long term (current) use of insulin

== ENCOUNTER → 2024-10-25 14:11 | Outpatient (BNVA) | payer MEDICARE, SELFPAY | PROVIDERS: PCP Family Medicine; Visit Provider Physician Assistant Medical | DX: E11.9 Type 2 diabetes mellitus without complications (principal); Z79.4 Long term (current) use of insulin | CPT/HCPCS: 82947; 83036; 99212 ==

== ENCOUNTER 2024-10-28 11:20 | Outpatient (AMB) | payer MEDICARE, SELFPAY ==
--- OUTSIDE RECORDS SUMMARY | 2024-10-28 11:23 | XMS_ITS ---
Author Organization [facility] Naomi rodriguez [place] Address [address] [place] [address] Care Team Providers Care Manager Database Administration Name Role Phone Tomasa PERRY, Poli Primary Care Provider Rochelle Escobedo Unavailable [phone] Allergies No Known Allergies REASON FOR VISIT [...] Problem Acquired hammer toe of right foot (5626431692788 105) Other hammer toe(s) (acquired), right foot (M20.41) Active confirmed Problem Acquired hammer toe of left foot (0285302898865 103) Other hammer toe(s) (acquired), left foot (M20.42) Active confirmed Vital Signs Height 5ft 10in in 10/04/2024 Weight 232 lbs 10/04/2024 BMI 33.28 kg/m2 10/04/2024 Procedures Procedure Date Ordered Date Performed Result Body Sit e 63170-ACAVMDX NAIL, 1-5 10/04/2024 N/A 14972-UBCT SKIN LESIONS, 2 TO 4 10/04/2024 N/A F5654-PPLNOEYQ DYSTROPHIC NAILS ANY # 10/04/2024 N/A Encounters Encounter Location Date Provider Diagnosis [facility] [address] [address] 10/04/2024 Rochelle Rojas Other hammer toe(s) (acquired), [...] INSTRUCTIONS.pdf) Pending Test Test Name Order Date 28813-UIVFICF NAIL, 1-5 10/04/2024 30789-OOYN SKIN LESIONS, 2 TO 4 10/04/20 24 A5872-NSVNKROE DYSTROPHIC NAILS ANY # Next Appt Details Follow Up: 3 Months, Reason: Provider Name:Rochelle carranza, 10/03/2025 10:00:00 AM, [address] [facility], [address], [place], [address], Procedure Notes * Category Sub-Category Detail Notes Keratoma Treatment Parring or Cutting o f Benign Hyperkeratotic Lesion(s) (-56) 2-4 Lesions - The Benign hyperkeratotic lesions, as described in exam, were pared, and/or cut utilizing a sterile 15 blade, tissue nippers, and/or dremel - 06296 Debride Nails 1-5 Procedure: Performance of this nail treatment by a nonprofessional would put this patients foot and overall health at risk. Therefore, debridement to affected nail(s), as described in exam, was performed extensively to reduce/remove overall nail length, girth, thickness, subungual debris, and necrotic tissue, by manual and/or electrical means through the use of a nail nipper and/or dremel-type grinder operator, to a more viable healthy nail plate or bed tissue 1-5. Silver nitrate used for any petechial bleeding as necessary. Definitive antifungal treatment options have been reviewed and discussed with the patient. The patient chooses, no pharmaceutical tx will apply over the counter Ciclopirox gel 0.77 percent, - 35695 Nail Reduction Nail Reduction (-27) Trimming o f dystrophic nails, as described in exam, was performed to reduce/remove overall nail length and girth, by manual and electrical means with use of a nail nipper and/or dremel, to more viable healthy nail plate or bed tissue, any number - G0127 Progress Notes * Scott MONCADA RDOB: [birth year] (74 yo M)Acc No.[id number]:10/04/2024 Progress Note Patient:?Scott MONCADA Provider:?Rochelle Rojas DPM :1950???Age:74 Y???Sex:Male Jose Angel e:10/04/2024 Address:[facility] [place], [address] Pcp:Poli Randolph MD Subjective: * Chief [...] 2.?Type 2 diabetes mellitus with diabetic polyneuropathy?Procedure: 17081-NGHHOZE NAIL, 1-5 ?Procedure: 09436-LCFI SKIN LESIONS, 2 TO 4 ?Procedure: F6140-LIPTAMMB DYSTROPHIC NAILS ANY # * Procedures:?Debride Nails 1-5:?Procedure:?Performance of this nail treatment by a nonprofessional would put this patients foot and overall health at risk. Therefore, debridement to affected nail(s), as described in exam, was performed extensively to reduce/remove overall nail length, girth, thickness, subungual debris, and necrotic tissue, by manual and/or electrical means through the use of a nail nipper and/or dremel-type grinder operator, to a more viable healthy nail plate or bed tissue 1-5. Silver nitrate used for any petechial bleeding as necessary. Definitive antifungal treatment options have been reviewed and discussed with the patient. The patient chooses, no pharmaceutical tx will apply over the counter?Ciclopirox gel 0.77 percent, - 35731.?Keratoma Treatment:?Parring or Cutting of Benign Hyperkeratotic Lesion(s)?(-56) 2-4 Lesions - The Benign hyperkeratotic lesions, as described in exam, were pared, and/or cut utilizing a sterile 15 blade, tissue nippers, and/or dremel - 65627.?Nail Reduction:?Nail Reduction?(-27) Trimming of dystrophic nails, as described in exam, was performed to reduce/remove overall nail length and girth, by manual and electrical means with use of a nail nipper and/or dremel, to more viable healthy nail plate or bed tissue, any number - G0127.? * Procedure Codes:?08647 DEBRI DE NAIL, 1-5, Modifiers: XS G0127 TRIMMING DYSTROPHIC NAILS ANY #, Modifiers: XS 17039 TRIM SKIN LESIONS, 2 TO 4, Modifiers: [...] Rojas DPM Date:?12/04/2023 Generated for Jolly thompson/Tamie/Tatianaitting on:?10/28/2024 11:23 AM EST History and Physical Notes * HPI [...]
--- OUTSIDE RECORDS SUMMARY | 2024-10-28 11:24 | XMS_ITS ---
Author Organization [facility] Naomi rodriguez Clark Address [address] [place] [address] Care Team Providers Care Driller Operator Name Role Phone Poli Randolph MD Primary Care Provider Rochelle Escobedo Unavailable [phone] Alexandr Meza Unavailable [phone] Allergies No Known Allergies Medications Medication SIG [...] Ordered Date Performed Result Body Sit e 08935-FXAF SKIN LESIONS, 2 TO 4 09/29/2023 N/A V9227-CSDFZWAW DYSTROPHIC NAILS ANY # 09/29/2023 N/A Encounters Encounter Location Date Provider Diagnosis [facility] [place] [address] [facility] [address] [place] [address] 09/29/2023 Alexandr Meza Type 2 diabetes mellitus [...] Treatment Pending Test Test Name Order Date 11509-NWAU SKIN LESIONS, 2 TO 4 09/29/20 23 J3747-OMBVNEHS DYSTROPHIC NAILS ANY # Next Appt Details Follow Up: 1 Year, Reason: Provider Name:Rochelle carranza, 10/03/2025 10:00:00 AM, [address] [facility], [address], [place], [address], Procedure Notes * Category Sub-Category Detail Notes Keratoma Treatment Parring or Cutting o f Benign Hyperkeratotic Lesion(s) 90510 ( 2-4 Lesions ) - The Benign [...] Scott CRUZ RDOB: [birth year] (73 yo M)Acc No.[id number]:09/29/2023 Progress Note Patient:?Scott Cruz Provider:?Alexandr eMza DPM :1950???Age:73 Y???Sex:Male Jose Angel e:09/29/2023 Address:[facility] [address] Pcp:Poli Randolph MD Subjective: * Chief [...] Procedures:?Keratoma Treatment:?Parring or Cutting of Benign Hyperkeratotic Lesion(s)?51037 ( 2-4 Lesions ) - The Benign [...] or bed tissue 6-10 (G0127).? * Procedure Codes:?35891 TRIM SKIN LESIONS, 2 TO 4, Modifiers: [...] DPM Date:? 023 Generated for Jolly thompson/Tamie/eTelissasmitting on:?10/28/2024 11:23 AM EST History and Physical [...]
--- OUTSIDE RECORDS SUMMARY | 2024-10-28 11:24 | XMS_ITS ---
Author Organization [facility] Address [address] [place] [address] Care Team Providers Care Drier And Pulverizer Tender Name Role Phone Poli Randolph MD Primary Care Provider Rochelle Escobedo Unavailable [phone] Alexandr Meza [phone] Willoughby to Dr Rojas Encounters Encounter Location Date Provider Diagnosis [address] [address] 10/04/2024 Alexandr Meza Plan Of Treatment Next Appt Details Provider Name:Rochelle Holder dillon, 10/03/2025 10:00:00 AM, [facility] [address], [address], Progress Notes * ANTHONYScott NIXON RDOB: [birth year] (74 yo M)Acc No.[id number]:10/04/2024 Progress Note Patient:?Scott MONCADA Provider:?Alexandr Meza DPM :1950???Age:74 Y???Sex:Male Jose Angel e:10/04/2024 Address:[address], [place], [place]-[address] Pcp:Poli Randolph MD Subjective: * Chief Complaints: * ???1. Dr Willouhgby to Dr Deepthi schrader * Medical History:? Objective: * Vitals:? Assessment: Plan: * Treatment: * Images: * The named appointment provid er may or may not be the originator of this progress note, and it is not deemed complete until electronically signed by the appointment provider. Sign off status: Pending * Provider:?Alexandr Meza DPM Date:? 024 Generated for Jolly thompson/Tamie/Tisha on:?10/28/2024 11:23 AM EST
--- OUTSIDE RECORDS SUMMARY | 2024-10-28 11:24 | XMS_ITS | Patient Health Record ---
Author Organization [facility] Address [address] [place] [address] Care Team Providers Care Weblogic Developer Name Role Phone Poli Randolph MD Primary Care Provider Rochelle Escobedo Unavailable [phone] Alexandr Meza Unavailable [phone] Allergies No Known Allergies Results Component Value [...] Problem Acquired hammer toe of right foot (3616080053655144 ) Other hammer toe(s) (acquired), right foot (M20.41) Active confirmed Problem Acquired hammer toe of left foot (0036251394547670 ) Other hammer toe(s) (acquired), left foot (M20.42) Active confirmed Problem Polyneuropathy due to type 2 diabetes mellitus (586410865) Type 2 diabetes mellitus with diabetic polyneuropathy (E11.42) Active confirmed Vital Signs Height 5ft 10in in 10/04/2024 Weight 232 lbs 10/04/2024 BMI 33.28 kg/m2 10/04/2024 Procedures Procedure Date Ordered Date Performed Result Body Sit e 37385-XNNLYDS NAIL, 1-5 10/04/2024 N/A 06376-IDJL SKIN LESIONS, 2 TO 4 10/04/2024 N/A Z1245-GWIONIVE DYSTROPHIC NAILS ANY # 10/04/2024 N/A Encounters Encounter Location Date Provider Diagnosis [facility] [address] [address] 10/04/2024 Rochelle Rojas Other hammer toe(s) (acquired), [...] X ray : Foot, left 3V 09/02/2022 84082-JJVGYEV NAIL, 1-5 10/04/2024 55139-ULSB SKIN LESIONS, 2 TO 4 10/04/20 24 05098-NRQS SKIN LESIONS, 2 TO 4 09/29/20 23 T1048-ODMYPISF DYSTROPHIC NAILS ANY # R3394-PYHITILL DYSTROPHIC NAILS ANY # Next Appt Details Provider Name:Rochelle Holder dillon, 10/03/2025 10:00:00 AM, [address] [facility], [facility] [address], [place], [address], Insurance Providers Payer Name Payer Address Payer Phone Subscriber Number Group Number Insured Name Patient Relationship to Insured Coverage Start Date Coverage End Date [employer] Medicare Adv-[id number] [address] [address] [place] [phone] [id number] Scott Moncada Self - patient is the insured Medical (General) History Medical History History ICD Code Broken bones Diabetes mellitus, Type II, without comp lications Chicken pox Joint implants/screws Gastroesophageal reflux disease (GERD) Hypertension Surgical History Surgery Date(Month/Year) appendectomy 1978 foot surgery 2007 Hospitalization History Reason Date(Month/Year) [facility]- inf wound 08/19/22
--- NOTE | 2024-10-28 12:00 | MHC.PC.OV ---
Vital Signs 10/28/24 12:02 Height 5 ft 10 in BP 122/58 L Blood Pressure Location Lt brachial Position Sitting Pulse 88 Pulse Source Pulse Oximeter Pulse Oximetry (%) 99 Oxygen Delivery Method Room Air Intake Visit Reasons: 6 wks dm Intake Note: Diabetes follow up. 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: No Accompanied by: Spouse Allergies lisinopril Allergy (Severe, Verified 10/28/24 12:00) Angioedema Medication List - Last Reconciled 10/28/24 by Poli Randolph MD aspirin (Adult Low Dose Aspirin) 81 mg PO DAILY atorvastatin 10 mg PO DAILY blood sugar diagnostic (China Rapid FinanceTouch Ultra Test strips) daily As directed, 90 days blood-glucose sensor (ScaleGridStyle Linda 3 Sensor device) As directed every 14 days famotidine 20 mg PO BEDTIME 90 days flash glucose scanning reader (ScaleGridStyle Linda 14 Day [place]) As directed flash glucose scanning reader (FreeStyle Linda 14 Day [place]) As directed flash glucose sensor (ScaleGridStyle Linda 14 Day Sensor kit) As directed. 28 days fluticasone propionate 50 mcg/actuation (Flonase Allergy Relief) 1 spray intranasal Q12H 30 days insulin glargine (Lantus Solostar U-100 Insulin) 26 units subcut DAILY metformin ER 1,000 mg (2 x 500 mg) PO BID 90 days metronidazole 0.75% 1 appl topical BID 30 days miscellaneous medical supply Diabetic Shoes. Daily As directed. 999 days multivitamin 1 tab PO DAILY olopatadine 0.2% (Pataday Once Daily Relief) 1 drp ophthalmic (eye) QAM 30 days pen needle, diabetic Use 4 daily, As directed. Ninety day supply. tirzepatide (Mounjaro) 7.5 mg (0.5 mL) subcut QWEEK Tobacco use date assessed: 03/29/24 Dental Screening Dental Screen Date: 03/29/24 HPI 6 wks dm HPI Details 74 y/o male presents to f/u diabetes, chronic conditions. Has had significantly low blood sugars since starting Mounjaro. Had him decrease basal/bolus insulin. Saw Endocrinology 10/25/24 - A1c 7.1%. They recommended to continue metformin 1000mg twice daily, start Mounjaro 7.5mg weekly, decrease Lantus from 30 units to 26 units. Recommended to remain off humalog. Increase Lantus back to 28 or 40 units if experiencing high blood sugars, decrease Lantus from 26 units to 22 units if experiencing frequent low blood sugars. He denies any low blood sugars. Blood pressure today 122/58, 88p. [facility] Medical History (Updated 08/30/24 @ 16:52 by GERARDO Adame) Type 2 diabetes mellitus with insulin therapy Sleep apnea Diabetes Elevated cholesterol HTN (hypertension) GERD (gastroesophageal reflux disease) Encounter for screening Surgical History History of endoscopy Status post right foot surgery H/O colonoscopy History of appendectomy Family History Mother Lung cancer Social History (Updated 10/28/24 @ 12:06 by Ronel Rice CMA) Household Members: 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 occupational exposures/hazards: No Cognitive needs: No Hearing needs: Yes (Hearing aides) Vision needs: Yes (Patient wears glasses.) Questionnaire Thrive Questionnaire Date Thrive assessed: 09/07/24 I am a: Patient What is your living situation today?: I have a steady place to live Within the past 12 months, did the food you bought not last and you didn't have the money to get more?: Never true Within the past 12 months, did you worry whether your food would run out before you got money to buy more?: Never true Do you have trouble paying for medicines?: No Do you have trouble getting transportation to medical appointments?: No Do you have trouble paying your heating and electricity bill?: No Do you have trouble taking care of your child, family member or friend?: No Do you have trouble with day-to-day activities such as bathing, preparing meals, shopping, managing finances, etc.?: No Are you currently unemployed and looking for a job?: No Are you interested in more education?: No Please select the resources that you would like help with: None Currently or been in a relationship where the following occur: No concerns reported THRIVE Score: 0 WILD-7 AMB Questionnaire WILD-7 Date WILD - 7 assessed: 03/29/24 Source: Developed by Drs. Adrian Limon, Kimberley Zavala, Ramon Mackay and colleagues, with an educational balaji from [employer]. Review of Systems Const Denies chills, Denies fatigue, Denies fever(s), Denies headache(s) and Denies weakness ENT Denies dizziness and Denies headache(s) Card Denies dyspnea Resp Denies cough, Denies dyspnea, Denies wheezing and Denies other (shortness of breath) Musc Denies numbness and Denies tingling Neuro Denies dizziness, Denies headache(s), Denies numbness, Denies tingling and Denies weakness Psych Denies anxiety and Denies depression Endo Denies fatigue Aller/Immun Denies wheezing Physical exam (Primary Care) Vital Signs: Last Vital Signs Pulse 88 10/28/24 12:02 BP 122/58 L 10/28/24 12:02 Pulse Ox 99 10/28/24 12:02 Oxygen Delivery Method Room Air 10/28/24 12:02 Tobacco/Smoking Status: Tobacco use Status Tobacco use date assessed 03/29/24 10/28/24 12:06 Patient Tobacco Use Status Never used Tobacco 10/28/24 12:06 e-Cigarette/Vaping Use Never Used 10/28/24 12:06 Thrive Assessment: Date of Thrive Assessment Date Thrive assessed 09/07/24 10/28/24 12:06 Currently or been in a relationship where the following occur: No concerns reported Const General: well developed; No acute distress Nutritional Appearance: well nourished Orientation/consciousness: patient oriented x3 [facility]: Yes normocephalic and Yes atraumatic Eyes General: appearance normal, both eyes and all related structures Pupils: Equal, round and reactive pupils present EOM: EOMs intact bilaterally Resp Effort & Inspection: normal respiratory effort Auscultation: clear to auscultation bilaterally Cardio Rate: regular rate Rhythm: regular rhythm Heart sounds: S1 normal heart sound present, S2 normal heart sound present, no gallops, no murmurs and no rubs Neuro General: patient oriented x3 and gait normal Cranial nerves: Yes Equal, round and reactive pupils present Psych Affect: normal affect Coding Level of Care Code Est Pt Level 3 (06422) Diagnoses Type 2 diabetes mellitus with insulin therapy E11.9; Z79.4 Essential hypertension I10 Assessment & Plan Assessment & Plan (1) Type 2 diabetes mellitus with insulin therapy: Code(s): E11.9 - Type 2 diabetes mellitus without complications; Z79.4 - intermediate (current) use of insulin Category: Medical Plan: A1c?7.1%. 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 Follow-up?with?endocrinology?as?recommended No?medication?changes?made?by?today (2) Essential hypertension: Code(s): I10 - Essential (primary) hypertension Category: Medical Plan: Blood?pressure?is?controlled.??Goal?is?less?than?140/90 Continue?current?medication
[2024-10-28 12:02] VITALS: BP 122/58; PULSE 88; O2SAT 99
== END 2024-10-28 12:41 | disposition home or self-care (01) ==
PROVIDERS: PCP Family Medicine; Visit Provider Family Medicine
DX: E11.9 Type 2 diabetes mellitus without complications (principal); Z79.4 Long term (current) use of insulin; I10 Essential (primary) hypertension

== ENCOUNTER → 2024-10-28 11:20 | Outpatient (BNVA) | payer MEDICARE, SELFPAY | PROVIDERS: PCP Family Medicine; Visit Provider Family Medicine | DX: E11.9 Type 2 diabetes mellitus without complications (principal); I10 Essential (primary) hypertension; Z79.4 Long term (current) use of insulin | CPT/HCPCS: 99212 ==

== ENCOUNTER 2024-12-08 11:08 | Outpatient (REF) | payer MEDICARE, SELFPAY ==
[2024-12-13 18:04] LABS: Testosterone, Free 51.5 pg/mL (30.0-135.0); Testosterone, Total 294 ng/dL (250-1100)
== END 2024-12-08 11:09 | disposition home or self-care (01) ==
LOC: HO.WFDLDS 11:08
PROVIDERS: Visit Provider Family Medicine
DX: E11.9 Type 2 diabetes mellitus without complications (principal); R53.83 Other fatigue; Z13.29 Encounter for screening for other suspected endocrine disorder
CPT/HCPCS: 36415; 84402; 84403

== ENCOUNTER 2025-01-24 13:09 | Outpatient (AMB) | payer MEDICARE, SELFPAY ==
--- NOTE | 2025-01-24 13:18 | MHC.OFFVIS ---
Vital Signs 01/24/25 13:24 Height 5 ft 10 in Weight 225 lb 1.471 oz BMI 32.3 BP 94/54 L Blood Pressure Location Lt brachial Position Sitting Pulse 94 Pulse Source Pulse Oximeter Pulse Oximetry (%) 96 Oxygen Delivery Method Room Air Intake Visit Reasons: Type II diabetes Intake Note: Patient present today to follow up on Type 2 Diabetes Mellitus. Last Diabetic Eye exam: April 2024 Last Podiatry Visit: September 2024 Random Glucose:102 mg/dl HgA1C: 6.7% 01/24/2025 First Assistant Required: No Accompanied by: Spouse Allergies lisinopril Allergy (Severe, Verified 01/24/25 13:25) Angioedema HPI Comments Details: This is a 74-year-old male with a past medical history of obesity, PAMELA on CPAP, hypertension, type 2 diabetes, hyperlipidemia and thrombocytopenia presenting for diabetic management. Today he is accompanied by his . He was diagnosed with Type II DM in the early . He has libre3. Reviewed CGM data on his phone from the past 2 weeks. CGM active 94% Average glucose 153 GMI 7.3% Glucose variability 28.1% Very high 7% High 24% Target range 69% Low 0% Pattern of hyperglycemia post prandially sometimes. Hemoglobin a1c 6.7% today 01/24/25. Current medication regimen: Metformin 1000 mg twice daily, Lantus 30 units and Mounjaro 7.5 mg weekly. As instructed patient stopped Humalog except for taking it once the past few months when he overdid it Lantus is not going to be covered by insurance in 2024. They brought a paper with them that says Stephane or Naldo we will be covered. Humalog will also not be covered. Admelog or Fiasp will be, but they do not need refills on this right now. Compliance issues: none Hypoglycemia symptoms: No episodes since last visit. Hyperglycemia symptoms: None Eye exam: Up-to-date Microvascular complications: neuropathy, retinopathy (Dr. [facility] at [facility]) Macrovascular complications: none Allergy to lisinopril-angioedema. Hyperlipidemia: treated with atorvastatin 10 mg. ROS: Constitutional: No unexplained weight loss, fever, chills. Eyes: No vision changes Respiratory: No shortness of breath Cardiovascular: No chest pain Gastrointestinal: No anorexia, nausea, vomiting or diarrhea. No abdominal pain Neurologic: No headache, dizziness, syncope Skin: No open wounds Physical exam: Constitutional: Alert, in no distress. Head: Normocephalic. Neck: Supple, Full range of motion. No lymphadenopathy. No palpable thyroid masses. Respiratory: Clear to auscultation. Cardiovascular: S1 S2 regular. No murmurs. [facility] Medical History (Updated 08/30/24 @ 16:52 by GERARDO Adame) Type 2 diabetes mellitus with insulin therapy Sleep apnea Diabetes Elevated cholesterol HTN (hypertension) GERD (gastroesophageal reflux disease) Encounter for screening Surgical History History of endoscopy Status post right foot surgery H/O colonoscopy History of appendectomy Family History Mother Lung cancer Social History Household Members: 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 occupational exposures/hazards: No Cognitive needs: No Hearing needs: Yes (Hearing aides) Vision needs: Yes (Patient wears glasses.) Physical Exam Vital Signs: Last Vital Signs Pulse 94 01/24/25 13:24 BP 94/54 L 01/24/25 13:24 Pulse Ox 96 01/24/25 13:24 Oxygen Delivery Method Room Air 01/24/25 13:24 BMI result Body Mass Index 32.3 Office Procedures Glucose Monitoring Details Details: See [facility] [address] - Glucose monitoring, continuous-physician I&R Procedure code (CPT) selection complete Results AMB Hemoglobin A1c AMB Hemoglobin A1c 6.7 % Last Edit by DENIA Street on 01/24/25 13:41 Results Reviewed Results Reviewed: Laboratory Last Values Glucose (Clinic) 102 mg/dL (60-115) 01/24/25 13:31 Hgb A1c (Clinic) 6.7 % (4.0-6.0) H 01/24/25 13:40 Laboratory Tests 03/24/24 03/24/24 09/08/24 07:04 07:09 08:21 Creatinine 0.99 Estimated GFR > 60 Hgb A1c (Clinic) AST 32 ALT 29 Triglycerides 141 Cholesterol 116 LDL Cholesterol, Calc 48 HDL Cholesterol 40 L Vitamin B12 305 Urine Creatinine 92.67 Urine Microalbumin 10.0 Microalb/Creat Ratio 10.7 10/25/24 01/24/25 14:26 13:40 Creatinine Estimated GFR Hgb A1c (Clinic) 7.1 H 6.7 H AST ALT Triglycerides Cholesterol LDL Cholesterol, Calc HDL Cholesterol Vitamin B12 Urine Creatinine Urine Microalbumin Microalb/Creat Ratio Assessment & Plan Assessment & Plan (1) Type 2 diabetes mellitus with insulin therapy: Code(s): E11.9 - Type 2 diabetes mellitus without complications; Z79.4 - intermediate frame tender (current) use of insulin Category: Medical Plan In summary this is a 74-year-old male with a controlled type 2 diabetes. Discussed pathophysiology of Type II Diabetes Mellitus with the patient in detail.? 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 Discussed lifestyle modification with the patient. Recommended 30 minutes of moderately vigorous exercise 5 days per week to promote weight loss. His goals remain the same, that is to lose weight and decrease the amount of insulin he takes. Increase Mounjaro to 10 mg weekly. Switch Lantus to Tresiba and decrease to 24 units daily. Advised patient that if he has low blood sugars after making this adjustment he can decrease Tresiba further to 20 units, and if he experiences hyperglycemia he can increase to 28 or 30 units. He has not required Humalog except for 1 time in the past few months. Continue metformin 1000 mg twice daily. We reviewed proper treatment of hypo and hyperglycemia. They have glucose tablets at home. Patient is seeing his primary care provider in February so he will follow up here in 4 months for type 2 diabetes. Our plan will be to alternate visits between endo and primary care every 3 months. Orders: Orders AMB Hemoglobin A1c Today E11.9 - Type 2 diabetes mellitus without complications, Z79.4 - intermediate frame tender (current) use of insulin Creatinine Today E11.9 - Type 2 diabetes mellitus without complications, Z79.4 - detention (current) use of insulin Microalbumin, Random (w Creat) Today E11.9 - Type 2 diabetes mellitus without complications Vitamin B12 Today Z91.89 - Other specified personal risk factors, not elsewhere classified Lipid Panel Today E11.9 - Type 2 diabetes mellitus without complications, E78.5 - Hyperlipidemia, unspecified, Z79.4 - detention (current) use of insulin AMB Glucose Monitoring Today E11.9 - Type 2 diabetes mellitus without complications Medications: New Tresiba FlexTouch U-200 (insulin degludec) Replaces Lantus. 30 units (0.15 mL) subcut DAILY 27 mL 3RF NS tirzepatide (Mounjaro) 10 mg (0.5 mL) subcut QWEEK 2 mL 3RF Discontinued tirzepatide (Mounjaro) Discontinued Reason: Doctor's Order 7.5 mg (0.5 mL) subcut QWEEK 2 mL 3RF Patient Instructions: Switch Lantus to Tresiba and decrease to 24 units after increasing Mounjaro to 10 mg weekly. Continue Metformin 1000 mg twice daily. Coding Level of Care Code Est Pt Level 4 (44888) Diagnoses Type 2 diabetes mellitus with insulin therapy E11.9; Z79.4 CPT Codes Details - CPT: 16814 - Glucose monitoring, continuous-physician I&R ([id number])
[2025-01-24 13:24] VITALS: BP 94/54; PULSE 94; O2SAT 96; BMI 32.3
[2025-01-24 13:35] LABS: Glucose, Whole Blood 102 mg/dL (60-115)
--- OUTSIDE RECORDS SUMMARY | 2025-01-24 16:00 | XMS_ITS ---
Author Organization [facility] Naomi rodriguez [place] Address [address] [place] [address] Care Team Providers Care Junk Dealer Name Role Phone Tomasa PERRY, Poli Primary Care Provider Rochelle Escobedo Unavailable [phone] Allergies No Known Allergies REASON FOR VISIT [...] Problem Acquired hammer toe of right foot (2347781910660 105) Other hammer toe(s) (acquired), right foot (M20.41) Active confirmed Problem Acquired hammer toe of left foot (9492636095581 103) Other hammer toe(s) (acquired), left foot (M20.42) Active confirmed Vital Signs Height 5ft 10in in 10/04/2024 Weight 232 lbs 10/04/2024 BMI 33.28 kg/m2 10/04/2024 Procedures Procedure Date Ordered Date Performed Result Body Sit e 06046-MTMFEDL NAIL, 1-5 10/04/2024 N/A 93549-ZFDI SKIN LESIONS, 2 TO 4 10/04/2024 N/A O1217-ALBIQWGQ DYSTROPHIC NAILS ANY # 10/04/2024 N/A Encounters Encounter Location Date Provider Diagnosis [facility] [address] [address] 10/04/2024 Rochelle Rojas Other hammer toe(s) (acquired), [...] INSTRUCTIONS.pdf) Pending Test Test Name Order Date 62882-OGIZSBE NAIL, 1-5 10/04/2024 09930-PHDK SKIN LESIONS, 2 TO 4 10/04/20 24 J2696-OXNEDDQT DYSTROPHIC NAILS ANY # Next Appt Details Follow Up: 3 Months, Reason: Provider Name:Rochelle carranza, 10/03/2025 10:00:00 AM, [address] [facility], [address], [place], [address], Procedure Notes * Category Sub-Category Detail Notes Keratoma Treatment Parring or Cutting o f Benign Hyperkeratotic Lesion(s) (-56) 2-4 Lesions - The Benign hyperkeratotic lesions, as described in exam, were pared, and/or cut utilizing a sterile 15 blade, tissue nippers, and/or dremel - 23391 Debride Nails 1-5 Procedure: Performance of this nail treatment by a nonprofessional would put this patients foot and overall health at risk. Therefore, debridement to affected nail(s), as described in exam, was performed extensively to reduce/remove overall nail length, girth, thickness, subungual debris, and necrotic tissue, by manual and/or electrical means through the use of a nail nipper and/or dremel-type ice grinder, to a more viable healthy nail plate or bed tissue 1-5. Silver nitrate used for any petechial bleeding as necessary. Definitive antifungal treatment options have been reviewed and discussed with the patient. The patient chooses, no pharmaceutical tx will apply over the counter Ciclopirox gel 0.77 percent, - 74244 Nail Reduction Nail Reduction (-27) Trimming o f dystrophic nails, as described in exam, was performed to reduce/remove overall nail length and girth, by manual and electrical means with use of a nail nipper and/or dremel, to more viable healthy nail plate or bed tissue, any number - G0127 Progress Notes * Scott MONCADA RDOB: 8 (74 yo M)Acc No.[id number]:10/04/2024 Progress Note Patient:?Scott MONCADA Provider:?Rochelle Rojas DPM :1950???Age:74 Y???Sex:Male Jose Angel e:10/04/2024 Address:[facility] Farhan Brendon, [address] Pcp:Poli Randolph MD Subjective: * Chief [...] for office visit today.?ORIENTED:?person, place, and time.?FOOT EXAM:?Lower Extremity Neurological Exam performed:?Yes ?Footwear Evaluation?Footwear Evaluation performed:?Yes?Orthopedic: ?MUSCLE STRENGTH:?5/5 all groups in a symmetrical fashion, B/L.?DIGITAL DEFORMITIES:?Digital contracture, PIPJ, 2-5 B/L, incompl-reducible to push-up test, no over, nor underlapping,?there is?evidence of shoe producing skin irritation.?FOOTWEAR:?worn, non-supportive, shoe gear properties exacerbate patient's foot/toe deformity.?Vascular: ?DP PULSES(B):?1/4, B/L.?PT PULSES(B):? /4, B/L.?CAPILLARY FILL TIME:?3 secs. per digit, B/L.?TROPHIC [...] 1st metatarsal head B/L.?Ophthalmology Referral: ?DIABETES EYE EXAM?Diabetic Retinopathy Screening:?Yes ?Findings of Diabetic Eye Exam:?no retinopathy??? Assessment: * Assessment: 1.?Other hammer toe(s) (acqu ired), right foot - M20.41 (Primary)???Specify :Chronic problem, Worse (4),Rx Management (4)???2.?Other hammer toe(s) (acquired), left foot - M20.42???Specify :Chronic problem, Worse (4),Rx Management (4)???3.?Type 2 diabetes mellitus with diabetic polyneuropathy - E11.42???4.?Tinea unguium - B35.1??? Plan: * Treatment: 2.?Type 2 diabetes mellitus with diabetic polyneuropathy?Procedure: 97081-YKCLQPR NAIL, 1-5 ?Procedure: 65322-RZFG SKIN LESIONS, 2 TO 4 ?Procedure: N0758-QNJAKECZ DYSTROPHIC NAILS ANY # * Procedures:?Debride Nails 1-5:?Procedure:?Performance of this nail treatment by a nonprofessional would put this patients foot and overall health at risk. Therefore, debridement to affected nail(s), as described in exam, was performed extensively to reduce/remove overall nail length, girth, thickness, subungual debris, and necrotic tissue, by manual and/or electrical means through the use of a nail nipper and/or dremel-type ice grinder, to a more viable healthy nail plate or bed tissue 1-5. Silver nitrate used for any petechial bleeding as necessary. Definitive antifungal treatment options have been reviewed and discussed with the patient. The patient chooses, no pharmaceutical tx will apply over the counter?Ciclopirox gel 0.77 percent, - 34376.?Keratoma Treatment:?Parring or Cutting of Benign Hyperkeratotic Lesion(s)?(-56) 2-4 Lesions - The Benign hyperkeratotic lesions, as described in exam, were pared, and/or cut utilizing a sterile 15 blade, tissue nippers, and/or dremel - 02808.?Nail Reduction:?Nail Reduction?(-27) Trimming of dystrophic nails, as described in exam, was performed to reduce/remove overall nail length and girth, by manual and electrical means with use of a nail nipper and/or dremel, to more viable healthy nail plate or bed tissue, any number - G0127.? * Procedure Codes:?92138 DEBRI DE NAIL, 1-5, Modifiers: XS G0127 TRIMMING DYSTROPHIC NAILS ANY #, Modifiers: XS 95056 TRIM SKIN LESIONS, 2 TO 4, Modifiers: [...] * Sign off status: Completed true * Provider:Emre Rojas DPM Date:?1 12/04/2023 Generated for Jolly thompson/Tamie/Tatianaitting on:?01/24/2025 04:00 PM EDT History and Physical Notes * HPI (History [...] Eye Exam:: no retin opathy Vascular DP PULSES (B): 1/4, B/L PT PULSES (B): 1/4, B/L CAPILLARY FILL TIME: 3 secs. per digit, B/L TEMPERTURE GRADIENT (C): warm to cool, p roximal to distal, B/L TROPHIC CONDITION-TEXTURE/ELASTICITY/TURGOR/HAIR GROWTH (B): normal, B/L EDEMA (C): no edema, B/L TELANGECTASIA: absent VARICOSITIES: absent PIGMENTATION: normal, B/L Nails NAILS are: Elongated, overg rown, dystrophic, lytic, greater than 3mm thick, discolored and friable with crumbly malodorous subungual debris, with dull to no pain on palpation due to neuropathy, TA, T9, remaining nails are elongated, overgrown, dystrophic
--- OUTSIDE RECORDS SUMMARY | 2025-01-24 16:00 | XMS_ITS ---
Author Organization [facility] Address [address] [place] [address] Care Team Providers Care Web Developer Programmer Name Role Phone Poli Randolph MD Primary Care Provider Rochelle Escobedo Unavailable [phone] Alexandr Meza [phone] Willoughby to Dr Rojas Encounters Encounter Location Date Provider Diagnosis [address] [address] 10/04/2024 Alexandr Meza Plan Of Treatment Next Appt Details Provider Name:Rochelle Holder dillon, 10/03/2025 10:00:00 AM, [facility] [address], [address], Progress Notes * ANTWANScott NIXON RDOB: [birth year] (74 yo M)Acc No.[id number]:10/04/2024 Progress Note Patient:?Scott MONCADA Provider:?Alexandr Meza DPM :1950???Age:74 Y???Sex:Male Jose Angel e:10/04/2024 Address:[address], [place], [place]-[address] Pcp:Poli Randolph MD Subjective: * Chief [...] DPM Date:? 024 Generated for Jolly thompson/Tamie/Tisha on:?01/24/2025 04:00 PM EDT
--- OUTSIDE RECORDS SUMMARY | 2025-01-24 16:00 | XMS_ITS ---
Author Organization [facility] Naomi rodriguez [place] Address [address] [place] [address] Care Team Providers Care Spout Positioner Name Role Phone Poli Randolph MD Primary Care Provider Rochelle Escobedo Unavailable [phone] Alexandr Meza Unavailable [phone] Allergies No Known Allergies Medications Medication SIG [...] Ordered Date Performed Result Body Sit e 79957-THFK SKIN LESIONS, 2 TO 4 09/29/2023 N/A Y6572-AUCEWZVS DYSTROPHIC NAILS ANY # 09/29/2023 N/A Encounters Encounter Location Date Provider Diagnosis [facility] [place] [address] [facility] [address] [place] [address] 09/29/2023 Alexandr Meza Type 2 diabetes mellitus [...] Treatment Pending Test Test Name Order Date 43375-MYDB SKIN LESIONS, 2 TO 4 09/29/20 23 P8846-IZOJTCXX DYSTROPHIC NAILS ANY # Next Appt Details Follow Up: 1 Year, Reason: Provider Name:Rochelle carranza, 10/03/2025 10:00:00 AM, [address] [facility], [address], [place], [address], Procedure Notes * Category Sub-Category Detail Notes Keratoma Treatment Parring or Cutting o f Benign Hyperkeratotic Lesion(s) 02325 ( 2-4 Lesions ) - The Benign [...] Scott CRUZ RDOB: [birth year] (73 yo M)Acc No.[id number]:09/29/2023 Progress Note Patient:?Scott Cruz Provider:?Alexandr Meza DPM :1950???Age:73 Y???Sex:Male Jose Angel e:09/29/2023 Address:[facility] Farhan Ol[address] Pcp:Poli Randolph MD Subjective: * Chief [...] and in no acute distress.?ORIENTED:?person,place, and time.?FOOT EXAM:?Lower Extremity Neurological Exam performed:?Yes ?Visual exam of foot performed:?Yes ?Date?09/29/2023 ?Sensory testing performed:?sensations diminished ?Pedal pulse taking performed:?1+?Neurological: ?SENSORY:? Neurological exam demonstrates, reduced vibration sensation, 5.07 monofilament test performed at plantar aspects of 5 varied sites per foot shows sensation, reduced , B/L, 5.07 monofilament test performed at plantar aspects of 5 varied sites per foot shows sensation, reduced , at Forefoot, B/L.?BABINSKI REFLEX:?absent.?Vascular: ?DP PULSES:? 11/19, B/L.?PT PULSES:? 11/19, B/L.?CAPILLARY FILL TIME:?3 secs. per digit, B/L.?SKIN [...] Procedures:?Keratoma Treatment:?Parring or Cutting of Benign Hyperkeratotic Lesion(s)?14714 ( 2-4 Lesions ) - The Benign [...] or bed tissue 6-10 (G0127).? * Procedure Codes:?97706 TRIM SKIN LESIONS, 2 TO 4, Modifiers: [...] DPM Date:? 023 Generated for Jolly thompson/Tamie/eTelissasmitting on:?01/24/2025 04:00 PM EDT History and Physical [...] Severity/Quality: mild Misc: he an his are lakisha lobo and use inessa time Examination Category Sub-Category [...] ORIENTED: person,place, and ti me Vascular DP PULSES (B): 1/4, B/L PT [...]
--- OUTSIDE RECORDS SUMMARY | 2025-01-24 16:00 | XMS_ITS | Patient Health Record ---
Author Organization [facility] Address [address] [place] [address] Care Team Providers Care Button Station Worker Name Role Phone Poli Randolph MD Primary Care Provider Rochelle Escobedo Unavailable [phone] Alexandr Meza Unavailable [phone] Allergies No Known Allergies Results Component Value [...] Problem Acquired hammer toe of right foot ([id number] ) Other hammer toe(s) (acquired), right foot (M20.41) Active confirmed Problem Acquired hammer toe of left foot (7373945852883925 ) Other hammer toe(s) (acquired), left foot (M20.42) Active confirmed Problem Polyneuropathy due to type 2 diabetes mellitus (055275568) Type 2 diabetes mellitus with diabetic polyneuropathy (E11.42) Active confirmed Vital Signs Height 5ft 10in in 10/04/2024 Weight 232 lbs 10/04/2024 BMI 33.28 kg/m2 10/04/2024 Procedures Procedure Date Ordered Date Performed Result Body Sit e 46754-NUBXXGE NAIL, 1-5 10/04/2024 N/A 23272-RUZP SKIN LESIONS, 2 TO 4 10/04/2024 N/A I6188-RMLOODRZ DYSTROPHIC NAILS ANY # 10/04/2024 N/A Encounters Encounter Location Date Provider Diagnosis [facility] [address] [address] 10/04/2024 Rochelle Rojas Other hammer toe(s) (acquired), [...] X ray : Foot, left 3V 09/02/2022 54757-OSCDVCP NAIL, 1-5 10/04/2024 98328-AUJV SKIN LESIONS, 2 TO 4 10/04/20 24 80256-ZVNY SKIN LESIONS, 2 TO 4 09/29/20 23 W8912-KBHWUPHX DYSTROPHIC NAILS ANY # R2069-FXOOKKRM DYSTROPHIC NAILS ANY # Next Appt Details Provider Name:Rochelle Holder dillon, 10/03/2025 10:00:00 AM, [address] [facility] [address], [place], [address], Insurance Providers Payer Name Payer Address Payer Phone Subscriber Number Group Number Insured Name Patient Relationship to Insured Coverage Start Date Coverage End Date [employer] Medicare Adv-[id number] [address] [address] [place] [address] [id number] Scott Moncada Self - patient is the insured Medical (General) History Medical History History ICD Code Broken bones Diabetes mellitus, Type II, without comp lications Chicken pox Joint implants/screws Gastroesophageal reflux disease (GERD) Hypertension Surgical History Surgery Date(Month/Year) appendectomy 1978 foot surgery 2007 Hospitalization History Reason Date(Month/Year) [facility]- inf wound 08/19/22
== END 2025-01-24 14:21 | disposition home or self-care (01) ==
LOC: HO.ENCR 13:10
PROVIDERS: PCP Family Medicine; Visit Provider Physician Assistant Medical
DX: E11.9 Type 2 diabetes mellitus without complications (principal); Z79.4 Long term (current) use of insulin

== ENCOUNTER → 2025-01-24 13:09 | Outpatient (BNVA) | payer MEDICARE, SELFPAY | PROVIDERS: PCP Family Medicine; Visit Provider Physician Assistant Medical | DX: E11.9 Type 2 diabetes mellitus without complications (principal); Z79.4 Long term (current) use of insulin | CPT/HCPCS: 82947; 83036; 99212 ==

== ENCOUNTER 2025-02-07 07:30 | Outpatient (REF) | payer MEDICARE, SELFPAY ==
[2025-02-07 11:49] LABS: Cholesterol 162 mg/dL (<200); Estimated Glomerular Filt Rate > 60; HDL Cholesterol 41 mg/dL (>40); LDL Cholesterol Calculated 86 mg/dL (<100); Triglycerides 175 mg/dL (<150)
[2025-02-07 12:11] LABS: Creatinine Urine 120.24 mg/dL; Microalbum/Creatinine Ratio Ur 12.4 ug/mg cr (<30)
[2025-02-07 12:23] LABS: Vitamin B12 811 pg/mL (200-900)
== END 2025-02-07 07:31 | disposition home or self-care (01) ==
LOC: HO.WFDLDS 07:30
PROVIDERS: Visit Provider Physician Assistant Medical
DX: E11.9 Type 2 diabetes mellitus without complications (principal); E78.5 Hyperlipidemia, unspecified; Z91.89 Other specified personal risk factors, not elsewhere classified; Z79.4 Long term (current) use of insulin
CPT/HCPCS: 36415; 80061; 82043; 82565; 82570; 82607

== ENCOUNTER 2025-02-22 10:22 | Outpatient (AMB) | payer MEDICARE, SELFPAY ==
--- NOTE | 2025-02-22 10:40 | MHC.PC.OV ---
Vital Signs 02/22/25 10:45 02/22/25 10:52 Height 5 ft 10 in Weight 222 lb 2 oz BMI 31.9 BP 134/60 120/60 Blood Pressure Location Lt brachial Lt brachial Position Sitting Sitting Respiration 14 Pulse 86 Pulse Source Pulse Oximeter Temp 98.1 F Temp Source Oral Pulse Oximetry (%) 96 Oxygen Delivery Method Room Air Intake Visit Reasons: f/u diabetes, chronic conditions Intake Note: patient is scheduled for for dm follow up Gold Burnisher Required: No Allergies lisinopril Allergy (Severe, Verified 02/22/25 10:43) Angioedema Medication List - Last Reconciled 02/22/25 by Poli Randolph MD aspirin (Adult Low Dose Aspirin) 81 mg PO DAILY atorvastatin 10 mg PO DAILY blood sugar diagnostic (Pepper Networksuch Ultra Test strips) daily As directed, 90 days blood-glucose sensor (Smarter Agent MobileStyle Linda 3 Sensor device) As directed every 14 days famotidine 20 mg PO BEDTIME 90 days flash glucose scanning reader (Smarter Agent MobileStyle Linda 14 Day Chadwick) As directed flash glucose scanning reader (FreeStyle Linda 14 Day Chadwick) As directed flash glucose sensor (Smarter Agent MobileStyle Linda 14 Day Sensor kit) As directed. 28 days fluticasone propionate 50 mcg/actuation (Flonase Allergy Relief) 1 spray intranasal Q12H 30 days metformin ER 1,000 mg (2 x 500 mg) PO BID 90 days metronidazole 0.75% 1 appl topical BID 30 days miscellaneous medical supply Diabetic Shoes. Daily As directed. 999 days multivitamin 1 tab PO DAILY olopatadine 0.2% (Pataday Once Daily Relief) 1 drp ophthalmic (eye) QAM 30 days pen needle, diabetic Use 4 daily, As directed. Ninety day supply. tirzepatide (Mounjaro) 10 mg (0.5 mL) subcut QWEEK Tresiba FlexTouch U-200 (insulin degludec) 30 units (0.15 mL) subcut DAILY NS Tobacco use date assessed: 03/29/24 Dental Screening Dental Screen Date: 03/29/24 HPI f/u diabetes, chronic conditions HPI Details 74 y/o male presents to f/u diabetes, chronic conditions. A1c 01/24/25 6.7%. He is on metformin 1000mg b.i.d, Mounjaro 10mg, Tresiba 30 units. Has complaints of a trigger finger mostly in the morning - has been using some aleve/ibuprofen for relief. [facility] Medical History (Updated 02/22/25 @ 10:59 by Jose Elias Bryan) Type 2 diabetes mellitus with insulin therapy Sleep apnea Diabetes Elevated cholesterol HTN (hypertension) GERD (gastroesophageal reflux disease) Encounter for screening Surgical History History of endoscopy Status post right foot surgery H/O colonoscopy History of appendectomy Family History Mother Lung cancer Social History Household Members: Spouse Housing: Condominium Alcohol intake: current Alcohol intake frequency: does not drink Patient Tobacco Use Status: Never used Tobacco e-Cigarette/Vaping Use: Never Used Second Hand Smoke Exposure: No service: No 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 1. Little interest or pleasure in doing things: not at all 2. Feeling down, depressed, or hopeless: not at all 3. Trouble falling or staying asleep, or sleeping too much: not at all 4. Feeling tired or having little energy: not at all 5. Poor appetite or overeating: not at all 6. Feeling bad about yourself - or that you are a failure or have let yourself or your family down: not at all 7. Trouble concentrating on things, such as reading the newspaper or watching television: not at all 8. Moving or speaking so slowly that other people could have noticed. Or the opposite - being so fidgety or restless that you have been moving around a lot more than usual: not at all 9. Thoughts that you would be better off or of hurting yourself in some way: not at all Total score: 0 Depression Screening Interpretation: Negative Depression Screening Done: Yes 97842 - PHQ-9 Billing: Yes Source: Developed by Drs. Adrian L. Ashly, Ramon Penn and colleagues, with an educational balaji from [employer]. Thrive Questionnaire Date Thrive assessed: 02/17/25 I am a: Patient What is your living situation today?: I have a steady place to live Within the past 12 months, did the food you bought not last and you didn't have the money to get more?: Never true Within the past 12 months, did you worry whether your food would run out before you got money to buy more?: Never true Do you have trouble paying for medicines?: No Do you have trouble getting transportation to medical appointments?: No Do you have trouble paying your heating and electricity bill?: No Do you have trouble taking care of your child, family member or friend?: No Do you have trouble with day-to-day activities such as bathing, preparing meals, shopping, managing finances, etc.?: No Are you currently unemployed and looking for a job?: No Are you interested in more education?: No Please select the resources that you would like help with: None Currently or been in a relationship where the following occur: No concerns reported THRIVE Score: 0 AUDIT C Alcohol Use Questionnaire (AUDIT-C) 1. How often do you have a drink containing alcohol?: Monthly or less 2. How many drinks containing alcohol do you have on a typical day when you are drinking?: 1 or 2 3. How often do you have six or more drinks on one occasion?: Never Total Score: 1 WILD-7 AMB Questionnaire WILD-7 Date WILD - 7 assessed: 03/29/24 Feeling nervous, anxious, or on edge: 0 = Not at all Not being able to stop or control worryin = Not at all Worrying too much about different things: 0 = Not at all Trouble relaxin = Not at all Being so restless that it is hard to sit still: 0 = Not at all Becoming easily annoyed or irritable: 0 = Not at all Feeling afraid as if something awful might happen: 0 = Not at all Total WILD-7 score (0-4 normal; 5-9 mild; 10-14 moderate; 15-21 severe): 0 Source: Developed by Drs. Adrian Limon, Ramon Penn and colleagues, with an educational balaji from [employer]. Review of Systems Const Denies chills, Denies fatigue, Denies fever(s), Denies headache(s) and Denies weakness ENT Denies dizziness and Denies headache(s) Card Denies dyspnea Resp Denies cough, Denies dyspnea, Denies wheezing and Denies other (shortness of breath) Musc Denies numbness and Denies tingling Neuro Denies dizziness, Denies headache(s), Denies numbness, Denies tingling and Denies weakness Psych Denies anxiety and Denies depression Endo Denies fatigue Aller/Immun Denies wheezing Physical exam (Primary Care) Vital Signs: Last Vital Signs Temp 98.1 F 02/22/25 10:45 Pulse 86 02/22/25 10:45 Resp 14 02/22/25 10:45 BP 134/60 02/22/25 10:45 Pulse Ox 96 02/22/25 10:45 Oxygen Delivery Method Room Air 02/22/25 10:45 BMI result Body Mass Index 31.9 Tobacco/Smoking Status: Tobacco use Status Tobacco use date assessed 03/29/24 10/28/24 12:06 Patient Tobacco Use Status Never used Tobacco 10/28/24 12:06 e-Cigarette/Vaping Use Never Used 10/28/24 12:06 Depression Screening Interpretation: Negative Thrive Assessment: Date of Thrive Assessment Date Thrive assessed 02/17/25 02/17/25 13:10 Currently or been in a relationship where the following occur: No concerns reported Const General: well developed; No acute distress Nutritional Appearance: well nourished Orientation/consciousness: patient oriented x3 [facility] Head: Yes normocephalic and Yes atraumatic Eyes General: appearance normal, both eyes and all related structures Pupils: Equal, round and reactive pupils present EOM: EOMs intact bilaterally Resp Effort & Inspection: normal respiratory effort Auscultation: clear to auscultation bilaterally Cardio Rate: regular rate Rhythm: regular rhythm Heart sounds: S1 normal heart sound present, S2 normal heart sound present, no gallops, no murmurs and no rubs Neuro General: patient oriented x3 and gait normal Cranial nerves: Yes Equal, round and reactive pupils present Psych Affect: normal affect Coding Level of Care Code Est Pt Level 3 (69111) Diagnoses Type 2 diabetes mellitus with insulin therapy E11.9; Z79.4 Trigger finger M65.30 Additional Codes PHQ-9 - 30053 - PHQ-9 Billing: Yes ([id number]) Assessment & Plan Assessment & Plan (1) Type 2 diabetes mellitus with insulin therapy: Code(s): E11.9 - Type 2 diabetes mellitus without complications; Z79.4 - budget analyst (current) use of insulin Category: Medical Plan: A1c?6.7%.??Good?control.??Goal?is?less?than?7% Continue?current?medications Encouraged?diabetic?diet,?exercise?and?weight?loss (2) Trigger finger: Code(s): M65.30 - Trigger finger, unspecified finger Category: Medical Plan: Right?3rd?finger?trigger?finger Advised?heat,?topical?such?as?Aspercreme?and?Aleve. If?not?improving?no?refer?to?ortho. Orders: Orders Complete Blood Count Auto Diff Today Z00.00 - Encounter for general adult medical examination without abnormal findings Lipid Panel Today Z00.00 - Encounter for general adult medical examination without abnormal findings UA CC w/rflx Micro + Cult Today Z00.00 - Encounter for general adult medical examination without abnormal findings Comprehensive [place]. Panel Fast Today Z00.00 - Encounter for general adult medical examination without abnormal findings Microalbumin, Random (w Creat) Today I10 - Essential (primary) hypertension TSH reflex Free T4 Today Z00.00 - Encounter for general adult medical examination without abnormal findings
[2025-02-22 10:45] VITALS: BP 134/60; PULSE 86; RESP 14; TEMP 36.7; O2SAT 96; BMI 31.9
[2025-02-22 10:52] VITALS: BP 120/60
--- OUTSIDE RECORDS SUMMARY | 2025-02-22 11:43 | XMS_ITS ---
Author Organization [facility] Naomi rodriguez [place] Address [address] [place] [address] Care Team Providers Care Shipping Agent Name Role Phone Poli Randolph MD Primary Care Provider Rochelle Escobedo Unavailable [phone] Alexandr Meza Unavailable [phone] Allergies No Known Allergies Medications Medication SIG [...] Ordered Date Performed Result Body Sit e 57367-VOAX SKIN LESIONS, 2 TO 4 09/29/2023 N/A U6433-XZLFQJZN DYSTROPHIC NAILS ANY # 09/29/2023 N/A Encounters Encounter Location Date Provider Diagnosis [facility] [place] [address] [facility] [address] [place] [address] 09/29/2023 Alexandr Meza Type 2 diabetes mellitus [...] Treatment Pending Test Test Name Order Date 64668-UCDJ SKIN LESIONS, 2 TO 4 09/29/20 23 Y9390-ADEDZPPM DYSTROPHIC NAILS ANY # Next Appt Details Follow Up: 1 Year, Reason: Provider Name:Rochelle carranza, 10/03/2025 10:00:00 AM, [address] [facility], [address], [place], [address], Procedure Notes * Category Sub-Category Detail Notes Keratoma Treatment Parring or Cutting o f Benign Hyperkeratotic Lesion(s) 33176 ( 2-4 Lesions ) - The Benign [...] Scott CRUZ RDOB: 8 (73 yo M)Acc No.[id number]:09/29/2023 Progress Note Patient:?Scott Cruz Provider:?Alexandr Meza DPM :1950???Age:73 Y???Sex:Male Jose Angel e:09/29/2023 Address:[facility] Farhan Olivas[address] Pcp:Poli Randolph MD Subjective: * Chief [...] Procedures:?Keratoma Treatment:?Parring or Cutting of Benign Hyperkeratotic Lesion(s)?33632 ( 2-4 Lesions ) - The Benign [...] or bed tissue 6-10 (G0127).? * Procedure Codes:?69806 TRIM SKIN LESIONS, 2 TO 4, Modifiers: [...] Meza DPM Date:? 023 Generated for Jolly thompson/Tamie/eTransmitting on:?02/22/2025 11:43 AM EDT History and Physical Notes * HPI [...]
--- OUTSIDE RECORDS SUMMARY | 2025-02-22 11:43 | XMS_ITS ---
Author Organization [facility] Address [address] [place] [address] Care Team Providers Care Campus Chaplain Name Role Phone Poli Randolph MD Primary Care Provider Rochelle Escobedo Unavailable [phone] Alexandr Meza [phone] Willoughby to Dr Rojas Encounters Encounter Location Date Provider Diagnosis [address] [address] 10/04/2024 Alexandr Meza Plan Of Treatment Next Appt Details Provider Name:Rochelle Holder dillon, 10/03/2025 10:00:00 AM, [facility] [address], [address], Progress Notes * ANTWANScott NIXON RDOB: 8 (74 yo M)Acc No.[id number]:10/04/2024 Progress Note Patient:?Scott MONCADA Provider:?Alexandr Meza DPM :1950???Age:74 Y???Sex:Male Jose Angel e:10/04/2024 Address:[address], [place], [place]-[address] Pcp:Poli Randolph MD Subjective: * Chief [...] DPM Date:? 024 Generated for Jolly thompson/Tamie/Tisha on:?02/22/2025 11:43 AM EDT
--- OUTSIDE RECORDS SUMMARY | 2025-02-22 11:43 | XMS_ITS ---
Author Organization [facility] Naomi rodriguez [place] Address [address] [place] [address] Care Team Providers Care Contract Programmer Name Role Phone Tomasa PERRY, Poli Primary Care Provider Rochelle Escobedo Unavailable [phone] Allergies No Known Allergies REASON FOR VISIT [...] Problem Acquired hammer toe of right foot (6487469665512 105) Other hammer toe(s) (acquired), right foot (M20.41) Active confirmed Problem Acquired hammer toe of left foot (2122677764745 103) Other hammer toe(s) (acquired), left foot (M20.42) Active confirmed Vital Signs Height 5ft 10in in 10/04/2024 Weight 232 lbs 10/04/2024 BMI 33.28 kg/m2 10/04/2024 Procedures Procedure Date Ordered Date Performed Result Body Sit e 50375-SKKCMTX NAIL, 1-5 10/04/2024 N/A 50647-UZQL SKIN LESIONS, 2 TO 4 10/04/2024 N/A O3381-ARQTESXF DYSTROPHIC NAILS ANY # 10/04/2024 N/A Encounters Encounter Location Date Provider Diagnosis [facility] [address] [address] 10/04/2024 Rochelle Rojas Other hammer toe(s) (acquired), [...] INSTRUCTIONS.pdf) Pending Test Test Name Order Date 75186-XYTJQWF NAIL, 1-5 10/04/2024 46884-VGKX SKIN LESIONS, 2 TO 4 10/04/20 24 C2163-FPZZVYDV DYSTROPHIC NAILS ANY # Next Appt Details Follow Up: 3 Months, Reason: Provider Name:Rochelle carranza, 10/03/2025 10:00:00 AM, [address] [facility], [address], [place], [address], Procedure Notes * Category Sub-Category Detail Notes Keratoma Treatment Parring or Cutting o f Benign Hyperkeratotic Lesion(s) (-56) 2-4 Lesions - The Benign hyperkeratotic lesions, as described in exam, were pared, and/or cut utilizing a sterile 15 blade, tissue nippers, and/or dremel - 37980 Debride Nails 1-5 Procedure: Performance of this nail treatment by a nonprofessional would put this patients foot and overall health at risk. Therefore, debridement to affected nail(s), as described in exam, was performed extensively to reduce/remove overall nail length, girth, thickness, subungual debris, and necrotic tissue, by manual and/or electrical means through the use of a nail nipper and/or dremel-type lap grinder, to a more viable healthy nail plate or bed tissue 1-5. Silver nitrate used for any petechial bleeding as necessary. Definitive antifungal treatment options have been reviewed and discussed with the patient. The patient chooses, no pharmaceutical tx will apply over the counter Ciclopirox gel 0.77 percent, - 84167 Nail Reduction Nail Reduction (-27) Trimming o f dystrophic nails, as described in exam, was performed to reduce/remove overall nail length and girth, by manual and electrical means with use of a nail nipper and/or dremel, to more viable healthy nail plate or bed tissue, any number - G0127 Progress Notes * Scott MONCADA RDOB: 8 (74 yo M)Acc No.[id number]:10/04/2024 Progress Note Patient:?Scott MONCADA Provider:?Rochelle Rojas DPM :1950???Age:74 Y???Sex:Male Jose Angel e:10/04/2024 Address:[facility] Farhan Brendon, [address] Pcp:Poli Randolph MD Subjective: * Chief [...] 2.?Type 2 diabetes mellitus with diabetic polyneuropathy?Procedure: 89660-VVYWLDJ NAIL, 1-5 ?Procedure: 32041-XUKW SKIN LESIONS, 2 TO 4 ?Procedure: F1558-VJTQBLYC DYSTROPHIC NAILS ANY # * Procedures:?Debride Nails 1-5:?Procedure:?Performance of this nail treatment by a nonprofessional would put this patients foot and overall health at risk. Therefore, debridement to affected nail(s), as described in exam, was performed extensively to reduce/remove overall nail length, girth, thickness, subungual debris, and necrotic tissue, by manual and/or electrical means through the use of a nail nipper and/or dremel-type lap grinder, to a more viable healthy nail plate or bed tissue 1-5. Silver nitrate used for any petechial bleeding as necessary. Definitive antifungal treatment options have been reviewed and discussed with the patient. The patient chooses, no pharmaceutical tx will apply over the counter?Ciclopirox gel 0.77 percent, - 52247.?Keratoma Treatment:?Parring or Cutting of Benign Hyperkeratotic Lesion(s)?(-56) 2-4 Lesions - The Benign hyperkeratotic lesions, as described in exam, were pared, and/or cut utilizing a sterile 15 blade, tissue nippers, and/or dremel - 55065.?Nail Reduction:?Nail Reduction?(-27) Trimming of dystrophic nails, as described in exam, was performed to reduce/remove overall nail length and girth, by manual and electrical means with use of a nail nipper and/or dremel, to more viable healthy nail plate or bed tissue, any number - G0127.? * Procedure Codes:?09592 DEBRI DE NAIL, 1-5, Modifiers: XS G0127 TRIMMING DYSTROPHIC NAILS ANY #, Modifiers: XS 85096 TRIM SKIN LESIONS, 2 TO 4, Modifiers: [...] DPM Date:?1 12/04/2023 Generated for Jolly thompson/Tamie/Tatianaitting on:?02/22/2025 11:42 AM EDT History and Physical Notes * [...] at sub 1st metatarsal head B/L Orthopedic FOOTWEAR EVALUATION: worn, non-s upportive, shoe gear properties exacerbate patient's foot/toe deformity [...]
--- OUTSIDE RECORDS SUMMARY | 2025-02-22 11:44 | XMS_ITS | Patient Health Record ---
[facility] Organization [facility] Address [address] [place] [address] Care Team Providers Care Cashier Receptionist Name Role Phone Poli Randolph MD Primary Care Provider Rochelle Escobedo Unavailable [phone] Alexandr Meza Unavailable [phone] Allergies No Known Allergies Results Component Value [...] Problem Acquired hammer toe of right foot (9433039725903345 ) Other hammer toe(s) (acquired), right foot (M20.41) Active confirmed Problem Acquired hammer toe of left foot (4921491485336547 ) Other hammer toe(s) (acquired), left foot (M20.42) Active confirmed Problem Polyneuropathy due to type 2 diabetes mellitus (285484811) Type 2 diabetes mellitus with diabetic polyneuropathy (E11.42) Active confirmed Vital Signs Height 5ft 10in in 10/04/2024 Weight 232 lbs 10/04/2024 BMI 33.28 kg/m2 10/04/2024 Procedures Procedure Date Ordered Date Performed Result Body Sit e 37912-YPLNIIS NAIL, 1-5 10/04/2024 N/A 88490-KSVQ SKIN LESIONS, 2 TO 4 10/04/2024 N/A Z9629-YWHBGTOV DYSTROPHIC NAILS ANY # 10/04/2024 N/A Encounters Encounter Location Date Provider Diagnosis [facility] [address] [address] 10/04/2024 Rochelle Rojas Other hammer toe(s) (acquired), [...] X ray : Foot, left 3V 09/02/2022 14269-PDWIEBT NAIL, 1-5 10/04/2024 14581-EKYM SKIN LESIONS, 2 TO 4 10/04/20 24 61081-XHKF SKIN LESIONS, 2 TO 4 09/29/20 23 W0037-VLJMPZFC DYSTROPHIC NAILS ANY # X3772-PRHKDZOT DYSTROPHIC NAILS ANY # Next Appt Details Provider Name:Rochelle Holder dillon, 10/03/2025 10:00:00 AM, [address] [facility], [facility] [address], [place], [address], Insurance Providers Payer Name Payer Address Payer Phone Subscriber Number Group Number Insured Name Patient Relationship to Insured Coverage Start Date Coverage End Date [employer] Medicare Adv-[id number] [address] [address] [place] [address] [phone] [id number] Scott Moncada Self - patient is the insured Medical (General) History Medical History History ICD Code Broken bones Diabetes mellitus, Type II, without comp lications Chicken pox Joint implants/screws Gastroesophageal reflux disease (GERD) Hypertension Surgical History Surgery Date(Month/Year) appendectomy 1978 foot surgery 2007 Hospitalization History Reason Date(Month/Year) M[facility]- inf wound 08/19/22
== END 2025-02-22 11:10 | disposition home or self-care (01) ==
LOC: HO.HMCFM 10:22
PROVIDERS: PCP Family Medicine; Visit Provider Family Medicine
DX: E11.9 Type 2 diabetes mellitus without complications (principal); Z79.4 Long term (current) use of insulin; M65.30 Trigger finger, unspecified finger

== ENCOUNTER → 2025-02-22 10:22 | Outpatient (BNVA) | payer MEDICARE, SELFPAY | PROVIDERS: PCP Family Medicine; Visit Provider Family Medicine | DX: E11.9 Type 2 diabetes mellitus without complications (principal); I10 Essential (primary) hypertension; M65.30 Trigger finger, unspecified finger; Z79.4 Long term (current) use of insulin; Z79.84 Long term (current) use of oral hypoglycemic drugs; Z79.899 Other long term (current) drug therapy | CPT/HCPCS: 96127; 99212 ==

== ENCOUNTER 2025-02-24 09:06 | Outpatient (AMB) | payer MEDICARE, SELFPAY ==
[2025-02-24 09:27] VITALS: BP 100/70; PULSE 95; O2SAT 96; BMI 32.0
--- NOTE | 2025-02-24 09:27 | MHC.OFFVIS ---
Vital Signs 02/24/25 09:27 Height 5 ft 10 in Weight 223 lb BMI 32.0 BP 100/70 Blood Pressure Location Lt brachial Position Sitting Pulse 95 Pulse Source Pulse Oximeter Pulse Oximetry (%) 96 Oxygen Delivery Method Room Air Intake Visit Reasons: 1yr f/u Hypersomnia Intake Note: Patient presents for PAMELA follow up compliance report 02/15/25 Television Repairer Required: No Accompanied by: Spouse Allergies lisinopril Allergy (Severe, Verified 02/24/25 09:29) Angioedema HPI Comments Details: History of Present Illness The patient is a 74-year-old male presenting with obstructive sleep apnea. Patient present with his , Rebeca, The CPAP compliance rate is 100% with 96% usage over four hours. The CPAP setting is fixed at 12 cm H2O with a residual AHI of approximately 1.5. There is occasional nocturnal interruption due to leg cramps, noted on February 14. The leg cramps are not frequent, associated with daily physical activity, and responsive to fluids. CPAP equipment is consistently maintained with distilled water. CPAP compliance review: Does patient have sufficient PAP supplies? Yes Does patient clean PAP supplies on a regular basis? Yes Does the patient use distilled water in their PAP machine water reservoir? Yes PAP compliance report reviewed. Compliance report date range: January 17 2025 to February 15 2025 Overall usage: 100 percent Usage greater than 4 hours: 96 percent PAP setting: CPAP 12 cmH2O with EPR set to 2 Average usage on days used: 6 hours and 53 minutes Average mask leakage: 27 LPM Residual AHI: 1.5 per hour Social History - Activity: Engages in physical activities regularly. - Functional Status: Maintains equipment cleaning schedule. - Device Management: Follows a replacement protocol for CPAP parts. Review of Systems - Musculoskeletal: Reports occasional nocturnal leg cramps. - Neurological: Denies significant issues aside from those mentioned. - General: Reports waking up with good energy generally. [facility] Medical History (Updated 02/22/25 @ 10:59 by Jose Elias Bryan) Type 2 diabetes mellitus with insulin therapy Sleep apnea Diabetes Elevated cholesterol HTN (hypertension) GERD (gastroesophageal reflux disease) Encounter for screening Surgical History History of endoscopy Status post right foot surgery H/O colonoscopy History of appendectomy Family History Mother Lung cancer Social History Household Members: Spouse Housing: Condominium Alcohol intake: current Alcohol intake frequency: does not drink Patient Tobacco Use Status: Never used Tobacco e-Cigarette/Vaping Use: Never Used Second Hand Smoke Exposure: No service: No 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 occupational exposures/hazards: No Cognitive needs: No Hearing needs: Yes (Hearing aides) Vision needs: Yes (Patient wears glasses.) Physical Exam Vital Signs: Last Vital Signs Pulse 95 02/24/25 09:27 BP 100/70 02/24/25 09:27 Pulse Ox 96 02/24/25 09:27 Oxygen Delivery Method Room Air 02/24/25 09:27 BMI result Body Mass Index 32.0 Const General: no acute distress Orientation/consciousness: patient oriented x3 Resp Effort & Inspection: normal respiratory effort and able to speak in complete sentences Neuro General: patient oriented x3 Psych Mental Status: mental status grossly normal Speech and movement: Clear speech present Attitude: cooperative Assessment & Plan Assessment & Plan (1) PAMELA on CPAP: Code(s): G47.33 - Obstructive sleep apnea (adult) (pediatric); Z99.89 - Dependence on other enabling machines and devices Category: Medical Plan Discussion Notes I discussed with the patient the results of his CPAP compliance, which showed excellent adherence to therapy. We talked about the rare occurrence of leg cramps interrupting his sleep, which appears related to increased activity and could potentially be managed with adequate hydration and, if recurrent, magnesium supplementation. I noted the maintenance protocol of his CPAP equipment and the transition to the Pallavi device following the recall of his previous machine. We agreed to continue the current CPAP settings unless there is a new issue developing. The patient was advised to monitor for any increase in leg cramps and to seek [id number] options if needed. We scheduled a follow-up in one year, with an open invitation to contact us should he have any interim concerns or problems. Plan The patient's sleep apnea is well-managed with 12 cm H2O CPAP. Leg cramps are infrequent, linked to daily activity, and manageable with hydration. Discussed potential as needed magnesium use for cramp reduction. CPAP maintenance is conducted correctly. The Pallavi device is functioning well; follow-up in one year unless problems occur. - Continue to use CPAP 12 cmH2O with EPR set to 2 nightly with a goal of greater than 4 hours nightly, as patient is experiencing good clinical effect from use. - Clean and change PAP supplies routinely, including filters, masks, tubing, and water reservoir. - Use distilled water in PAP water reservoir. Patient was informed and verbally consented to the use of an ambient scribe for clinic note documentation during this visit. Coding Level of Care Code Est Pt Level 3 (25857) Diagnoses PAMELA on CPAP G47.33; Z99.89
--- OUTSIDE RECORDS SUMMARY | 2025-02-24 09:27 | XMS_ITS ---
Author Organization [facility] Naomi rodriguez [place] Address [address] [place] [address] Care Team Providers Care Armature Rewinder Name Role Phone Poli Randolph MD Primary Care Provider Rochelle Escobedo Unavailable [phone] Alexandr Meza Unavailable [phone] Allergies No Known Allergies Medications Medication SIG [...] Ordered Date Performed Result Body Sit e 32162-RUCS SKIN LESIONS, 2 TO 4 09/29/2023 N/A S8281-QCMWRBYC DYSTROPHIC NAILS ANY # 09/29/2023 N/A Encounters Encounter Location Date Provider Diagnosis [facility] [place] [address] [facility] [address] [place] [address] 09/29/2023 Alexandr Meza Type 2 diabetes mellitus [...] Treatment Pending Test Test Name Order Date 13013-OBHZ SKIN LESIONS, 2 TO 4 09/29/20 23 S4495-OCHOWWVB DYSTROPHIC NAILS ANY # Next Appt Details Follow Up: 1 Year, Reason: Provider Name:Rochelle carranza, 10/03/2025 10:00:00 AM, [address] [facility], [address], [place], [address], Procedure Notes * Category Sub-Category Detail Notes Keratoma Treatment Parring or Cutting o f Benign Hyperkeratotic Lesion(s) 56878 ( 2-4 Lesions ) - The Benign [...] Scott CRUZ RDOB: 8 (73 yo M)Acc No.[id number]:09/29/2023 Progress Note Patient:?Scott Cruz Provider:?Alexandr Meza DPM :1950???Age:73 Y???Sex:Male Jose Angel e:09/29/2023 Address:[facility] Farhan Ol[address] Pcp:Poli Randolph MD Subjective: * Chief [...] Procedures:?Keratoma Treatment:?Parring or Cutting of Benign Hyperkeratotic Lesion(s)?94110 ( 2-4 Lesions ) - The Benign [...] or bed tissue 6-10 (G0127).? * Procedure Codes:?28311 TRIM SKIN LESIONS, 2 TO 4, Modifiers: [...] DPM Date:? 023 Generated for Jolly thompson/Tamie/eTransmitting on:?02/24/2025 09:27 AM EDT History and Physical Notes * [...]
--- OUTSIDE RECORDS SUMMARY | 2025-02-24 09:27 | XMS_ITS ---
Author Organization [facility] Address [address] [place] [address] Care Team Providers Care Trade Analyst Name Role Phone Poli Randolph MD Primary Care Provider Rochelle Escobedo Unavailable [phone] Alexandr Meza [phone] Willoughby to Dr Rojas Encounters Encounter Location Date Provider Diagnosis [address] [address] 10/04/2024 Alexandr Meza Plan Of Treatment Next Appt Details Provider Name:Rochelle Holder dillon, 10/03/2025 10:00:00 AM, [facility] [address], [address], Progress Notes * ANTWANScott NIXON RDOB: 8 (74 yo M)Acc No.[id number]:10/04/2024 Progress Note Patient:?Scott MONCADA Provider:?Alexandr Meza DPM :1950???Age:74 Y???Sex:Male Jose Angel e:10/04/2024 Address:[address], [place], [place]-[address] Pcp:Poli Randolph MD Subjective: * Chief [...] DPM Date:? 024 Generated for Jolly thompson/Tamie/Tisha on:?02/24/2025 09:26 AM EDT
--- OUTSIDE RECORDS SUMMARY | 2025-02-24 09:27 | XMS_ITS ---
Author Organization [facility] Naomi rodriguez [place] Address [address] [place] [address] Care Team Providers Care Institution Director Name Role Phone Tomasa PERRY, Poli Primary Care Provider Rochelle Escobedo Unavailable [phone] Allergies No Known Allergies REASON FOR VISIT [...] Problem Acquired hammer toe of right foot (9597991189762 105) Other hammer toe(s) (acquired), right foot (M20.41) Active confirmed Problem Acquired hammer toe of left foot (3868774345353 103) Other hammer toe(s) (acquired), left foot (M20.42) Active confirmed Vital Signs Height 5ft 10in in 10/04/2024 Weight 232 lbs 10/04/2024 BMI 33.28 kg/m2 10/04/2024 Procedures Procedure Date Ordered Date Performed Result Body Sit e 58690-CPFTETH NAIL, 1-5 10/04/2024 N/A 24793-JWYH SKIN LESIONS, 2 TO 4 10/04/2024 N/A E7409-SORBMWMY DYSTROPHIC NAILS ANY # 10/04/2024 N/A Encounters Encounter Location Date Provider Diagnosis [facility] [address] [address] 10/04/2024 Rochelle Rojas Other hammer toe(s) (acquired), [...] INSTRUCTIONS.pdf) Pending Test Test Name Order Date 29451-ZGMUPCI NAIL, 1-5 10/04/2024 89808-LDPT SKIN LESIONS, 2 TO 4 10/04/20 24 R5146-PYSPADSO DYSTROPHIC NAILS ANY # Next Appt Details Follow Up: 3 Months, Reason: Provider Name:Rochelle carranza, 10/03/2025 10:00:00 AM, [address] [facility], [address], [place], [address], Procedure Notes * Category Sub-Category Detail Notes Keratoma Treatment Parring or Cutting o f Benign Hyperkeratotic Lesion(s) (-56) 2-4 Lesions - The Benign hyperkeratotic lesions, as described in exam, were pared, and/or cut utilizing a sterile 15 blade, tissue nippers, and/or dremel - 20058 Debride Nails 1-5 Procedure: Performance of this nail treatment by a nonprofessional would put this patients foot and overall health at risk. Therefore, debridement to affected nail(s), as described in exam, was performed extensively to reduce/remove overall nail length, girth, thickness, subungual debris, and necrotic tissue, by manual and/or electrical means through the use of a nail nipper and/or dremel-type computer numerical control grinder, to a more viable healthy nail plate or bed tissue 1-5. Silver nitrate used for any petechial bleeding as necessary. Definitive antifungal treatment options have been reviewed and discussed with the patient. The patient chooses, no pharmaceutical tx will apply over the counter Ciclopirox gel 0.77 percent, - 16226 Nail Reduction Nail Reduction (-27) Trimming o f dystrophic nails, as described in exam, was performed to reduce/remove overall nail length and girth, by manual and electrical means with use of a nail nipper and/or dremel, to more viable healthy nail plate or bed tissue, any number - G0127 Progress Notes * Scott MONCADA RDOB: 8 (74 yo M)Acc No.[id number]:10/04/2024 Progress Note Patient:?Scott MONCADA Provider:?Rochelle Rojas DPM :1950???Age:74 Y???Sex:Male Jose Angel e:10/04/2024 Address:[facility] Farahn Brendon, [address] Pcp:Poli Randolph MD Subjective: * Chief [...] 2.?Type 2 diabetes mellitus with diabetic polyneuropathy?Procedure: 24387-HEVVKMQ NAIL, 1-5 ?Procedure: 89185-XWHJ SKIN LESIONS, 2 TO 4 ?Procedure: C5729-MZDHDLCN DYSTROPHIC NAILS ANY # * Procedures:?Debride Nails 1-5:?Procedure:?Performance of this nail treatment by a nonprofessional would put this patients foot and overall health at risk. Therefore, debridement to affected nail(s), as described in exam, was performed extensively to reduce/remove overall nail length, girth, thickness, subungual debris, and necrotic tissue, by manual and/or electrical means through the use of a nail nipper and/or dremel-type computer numerical control grinder, to a more viable healthy nail plate or bed tissue 1-5. Silver nitrate used for any petechial bleeding as necessary. Definitive antifungal treatment options have been reviewed and discussed with the patient. The patient chooses, no pharmaceutical tx will apply over the counter?Ciclopirox gel 0.77 percent, - 79492.?Keratoma Treatment:?Parring or Cutting of Benign Hyperkeratotic Lesion(s)?(-56) 2-4 Lesions - The Benign hyperkeratotic lesions, as described in exam, were pared, and/or cut utilizing a sterile 15 blade, tissue nippers, and/or dremel - 95762.?Nail Reduction:?Nail Reduction?(-27) Trimming of dystrophic nails, as described in exam, was performed to reduce/remove overall nail length and girth, by manual and electrical means with use of a nail nipper and/or dremel, to more viable healthy nail plate or bed tissue, any number - G0127.? * Procedure Codes:?44306 DEBRI DE NAIL, 1-5, Modifiers: XS G0127 TRIMMING DYSTROPHIC NAILS ANY #, Modifiers: XS 09365 TRIM SKIN LESIONS, 2 TO 4, Modifiers: [...] status: Completed true * Provider:?Rochelle Rojas DPM Date:?1 12/04/2023 Generated for Jolly thompson/Tamie/Tatianaitting on:?02/24/2025 09:26 AM EDT History and Physical Notes * [...]
--- OUTSIDE RECORDS SUMMARY | 2025-02-24 09:27 | XMS_ITS | Patient Health Record ---
Author Organization [facility] Address [address] [place] [address] Care Team Providers Care Supervisor Covering And Lining Name Role Phone Poli Randolph MD Primary Care Provider Rochelle Escobeod Unavailable [phone] Alexandr Meza Unavailable [phone] Allergies No Known Allergies Results Component Value [...] Problem Acquired hammer toe of right foot (9271901860012304 ) Other hammer toe(s) (acquired), right foot (M20.41) Active confirmed Problem Acquired hammer toe of left foot (8781072202548053 ) Other hammer toe(s) (acquired), left foot (M20.42) Active confirmed Problem Polyneuropathy due to type 2 diabetes mellitus (790103117) Type 2 diabetes mellitus with diabetic polyneuropathy (E11.42) Active confirmed Vital Signs Height 5ft 10in in 10/04/2024 Weight 232 lbs 10/04/2024 BMI 33.28 kg/m2 10/04/2024 Procedures Procedure Date Ordered Date Performed Result Body Sit e 64625-AKLQLBE NAIL, 1-5 10/04/2024 N/A 95199-UQEV SKIN LESIONS, 2 TO 4 10/04/2024 N/A F6611-HRFHIBBT DYSTROPHIC NAILS ANY # 10/04/2024 N/A Encounters Encounter Location Date Provider Diagnosis [facility] [address] [address] 10/04/2024 Rochelle Rojas Other hammer toe(s) (acquired), [...] X ray : Foot, left 3V 09/02/2022 06825-CVSGXKJ NAIL, 1-5 10/04/2024 31981-RRNR SKIN LESIONS, 2 TO 4 10/04/20 24 82099-EBWR SKIN LESIONS, 2 TO 4 09/29/20 23 Y1552-DLJPBSUF DYSTROPHIC NAILS ANY # H8608-LGPBXFJB DYSTROPHIC NAILS ANY # Next Appt Details Provider Name:Rochelle Holder dillon, 10/03/2025 10:00:00 AM, [address] [facility], [facility] [address], [place], [address], Insurance Providers Payer Name Payer Address Payer Phone Subscriber Number Group Number Insured Name Patient Relationship to Insured Coverage Start Date Coverage End Date [employer] Medicare Adv-[id number] [address] [address] [place] [address] [phone] [id number] Scott Moncada Self - patient is the insured Medical (General) History Medical History History ICD Code Broken bones Diabetes mellitus, Type II, without comp lications Chicken pox Joint implants/screws Gastroesophageal reflux disease (GERD) Hypertension Surgical History Surgery Date(Month/Year) appendectomy 1978 foot surgery 2007 Hospitalization History Reason Date(Month/Year) [facility]- inf wound 08/19/22
== END 2025-02-24 09:57 | disposition home or self-care (01) ==
LOC: HO.HSMS 09:07
PROVIDERS: PCP Family Medicine; Visit Provider Nurse Practitioner Family
DX: G47.33 Obstructive sleep apnea (adult) (pediatric) (principal); Z99.89 Dependence on other enabling machines and devices
CPT/HCPCS: 99213

== ENCOUNTER → 2025-02-24 09:06 | Outpatient (BNVA) | payer MEDICARE, SELFPAY | PROVIDERS: PCP Family Medicine; Visit Provider Nurse Practitioner Family | DX: G47.33 Obstructive sleep apnea (adult) (pediatric) (principal); Z99.89 Dependence on other enabling machines and devices | CPT/HCPCS: 99212 ==

== ENCOUNTER 2025-05-16 07:34 | Outpatient (REF) | payer MEDICARE, SELFPAY ==
[2025-05-16 11:14] LABS: Appearance Urine Clear; Glucose Urine UA Negative (Negative); PH 5.5 (5.0-9.0); Specific Gravity - Urine 1.020 (1.005-1.025)
[2025-05-16 11:31] LABS: MANUAL DIFF FLAG NO
[2025-05-16 11:39] LABS: Hematocrit 44.4 % (42.0-52.0); Hemoglobin 15.0 g/dl (14.0-18.0); Imm Gran Abs Auto 0.04 X10*3/uL (0.00-0.03); Imm Gran Pct Auto 0.6 % (0.0-0.4); Lymphocytes Absolute Auto 1.3 X10*3/uL (1.2-4.9); Mean Corpuscular HGB Conc 33.8 g/dl (31.0-36.0); Mean Corpuscular Hemoglobin 31.4 pg (27.0-33.0); Mean Corpuscular Volume 92.9 fL (80.0-98.0); NRBC Abs Auto 0.000 X10*3/uL (0.0-0.012); NRBC Pct Auto 0.0 /100WBC (0.0-0.2); Platelet Count 153 X10*3/uL (160-400); Red Blood Count 4.78 X10*6/uL (4.60-5.80); White Blood Count 6.7 X10*3/uL (4.8-10.8)
[2025-05-16 12:03] LABS: Alanine Aminotransferase 23 U/L (0-40); Albumin Level 4.3 g/dL (3.5-5.0); Alkaline Phosphatase 54 U/L (39-117); Anion Gap 13 (12-20); Aspartate Amino Transferase 26 U/L (5-37); Blood Urea Nitrogen 21 mg/dL (9-16); Calcium 9.8 mg/dL (8.4-10.2); Carbon Dioxide 29 mmol/L (22-29); Chloride 105 mmol/L (96-108); Cholesterol 105 mg/dL (<200); Estimated Glomerular Filt Rate > 60; HDL Cholesterol 40 mg/dL (>40); Potassium 4.3 mmol/L (3.3-5.1); Sodium 143 mmol/L (135-145); Total Protein 6.3 g/dL (6.5-8.0); Triglycerides 99 mg/dL (<150)
[2025-05-16 12:12] LABS: Microalbum/Creatinine Ratio Ur 8.6 ug/mg cr (<30)
== END 2025-05-16 07:35 | disposition home or self-care (01) ==
LOC: HO.WFDLDS 07:34
PROVIDERS: Visit Provider Family Medicine
DX: Z00.00 Encounter for general adult medical examination without abnormal findings (principal); I10 Essential (primary) hypertension
CPT/HCPCS: 36415; 80053; 80061; 81003; 82043; 82570; 84443; 85025

== ENCOUNTER 2025-05-23 09:18 | Outpatient (AMB) | payer MEDICARE, SELFPAY ==
--- OUTSIDE RECORDS SUMMARY | 2024-10-04 04:15 | XMS_ITS ---
Author Organization [facility] Address [address] [place] [address] Care Team Providers Care Program Associate Name Role Phone Tomasa PERRY, Poli Primary Care Provider Rochelle Escobedo Unavailable [phone] Alexandr Meza [phone] Willoughby to Dr Rojas Encounters Encounter Location Date Provider Diagnosis [address] [address] 10/04/2024 Alexandr Meza Plan Of Treatment Next Appt Details Provider Name:Rochelle carranza, 10/03/2025 10:00:00 AM, [facility] [address], [address], Progress Notes * Scott MONCADA RDOB: 8 (74 yo M)Acc No.[id number]:10/04/2024 Progress Note Patient: Scott ALVARENGA Provider: Hamlet Meza DPM :1950 A ge:74 Y S ex:Male Date:10/04/2024 Address:[address], [place], [place]-[address] Pcp:Poli Randolph MD Subjective: * Chief [...] Meza DPM Date: 12/04/2023 Generated for Jolly thompson/Tamie/Tisha on: 0 05/23/2025 09:43 AM EDT
[2025-05-23 09:20] VITALS: BP 121/67; PULSE 95; O2SAT 98; BMI 31.3
--- NOTE | 2025-05-23 09:20 | MHC.OFFVIS ---
Vital Signs 05/23/25 09:20 Height 5 ft 10 in Weight 218 lb 4.122 oz BMI 31.3 BP 121/67 Blood Pressure Location Rt brachial Position Sitting Pulse 95 Pulse Source Pulse Oximeter Pulse Oximetry (%) 98 Oxygen Delivery Method Room Air Intake Visit Reasons: Type II Diabetes Intake Note: Patient present today to follow up on Type 2 Diabetes Mellitus. 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 Associate Required: No Accompanied by: Significant Other Allergies lisinopril Allergy (Severe, Verified 05/23/25 09:22) Angioedema Medication List - Last Reconciled 05/23/25 by GERARDO Adame aspirin (Adult Low Dose Aspirin) 81 mg PO DAILY atorvastatin 10 mg PO DAILY blood sugar diagnostic (Proactauch Ultra Test strips) daily As directed, 90 days blood-glucose sensor ([employer] Linda 3 Sensor device) As directed every 14 days famotidine 20 mg PO BEDTIME 90 days flash glucose scanning reader ([employer]Style Linda 14 Day [place]) As directed flash glucose scanning reader (FreeStyle Linda 14 Day [place]) As directed flash glucose sensor (FreeStyle Linda 14 Day Sensor kit) As directed. 28 days fluticasone propionate 50 mcg/actuation (Flonase Allergy Relief) 1 spray intranasal Q12H 30 days metformin ER 1,000 mg (2 x 500 mg) PO BID 90 days metronidazole 0.75% 1 appl topical BID 30 days miscellaneous medical supply Diabetic Shoes. Daily As directed. 999 days multivitamin 1 tab PO DAILY olopatadine 0.2% (Pataday Once Daily Relief) 1 drp ophthalmic (eye) QAM 30 days pen needle, diabetic Use 4 daily, As directed. Ninety day supply. tirzepatide (Mounjaro) 10 mg (0.5 mL) subcut QWEEK Tresiba FlexTouch U-200 (insulin degludec) 30 units (0.15 mL) subcut DAILY NS HPI Comments Details: This is a 74-year-old male with a past medical history of obesity, PAMELA on CPAP, hypertension, type 2 diabetes, hyperlipidemia and thrombocytopenia presenting for diabetic management. Today he is accompanied by his . He was diagnosed with Type II DM in the early 2000s. Reviewed Linda 3+ data from May 10 to May 23 CGM active 93% Average glucose 157 G PR 7.1% Glucose variability 28% Very high 3% High 23% Target range 74% 0% hypoglycemia He has a pattern of postprandial hyperglycemia during the day Hemoglobin a1c 6.7% today. Current medication regimen: Metformin 1000 mg twice daily, Tresiba 30 units and Mounjaro 10 mg weekly. Past medication: Humalog discontinued Compliance issues: none Hypoglycemia symptoms: No interval episodes or symptoms Hyperglycemia symptoms: None Eye exam: Up-to-date Microvascular complications: neuropathy, retinopathy ([facility]. [facility] at [facility] in [place]. Macrovascular complications: none Allergy to lisinopril-angioedema. Hyperlipidemia: treated with atorvastatin 10 mg. ROS: Constitutional: No unexplained weight loss, fever, chills. Eyes: No vision changes Respiratory: No shortness of breath Cardiovascular: No chest pain Gastrointestinal: No anorexia, nausea, vomiting or diarrhea. No abdominal pain Neurologic: No headache, dizziness, syncope Skin: No open wounds Physical exam: Constitutional: Alert, in no distress. Head: Normocephalic. Neck: Supple, Full range of motion. No lymphadenopathy. No palpable thyroid masses. Respiratory: Clear to auscultation. Cardiovascular: S1 S2 regular. No murmurs. Right foot: Warm and well perfused. No clubbing, cyanosis or edema. Intact DP pulse. Decreased vibratory sensation. Absent sensation to monofilament in the toes and decreased midfoot. No open wounds. Left foot: Warm and well perfused. No clubbing, cyanosis or edema. Intact DP pulse. Decreased vibratory sensation. Absent sensation to monofilament in the toes and decreased midfoot. No open wounds. [facility] Medical History Type 2 diabetes mellitus with insulin therapy Sleep apnea Diabetes Elevated cholesterol HTN (hypertension) GERD (gastroesophageal reflux disease) Encounter for screening Surgical History History of endoscopy Status post right foot surgery H/O colonoscopy (~02/12/23) History of appendectomy Family History Mother Lung cancer Social History Household Members: Spouse Housing: Condominium Alcohol intake: current Alcohol intake frequency: does not drink Patient Tobacco Use Status: Never used Tobacco e-Cigarette/Vaping Use: Never Used Second Hand Smoke Exposure: No service: No 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 occupational exposures/hazards: No Cognitive needs: No Hearing needs: Yes (Hearing aides) Vision needs: Yes (Patient wears glasses.) Physical Exam Vital Signs: Last Vital Signs Pulse 95 05/23/25 09:20 BP 121/67 05/23/25 09:20 Pulse Ox 98 05/23/25 09:20 Oxygen Delivery Method Room Air 05/23/25 09:20 BMI result Body Mass Index 31.3 Office Procedures Glucose Monitoring Details Details: see HPI [id number] - Glucose monitoring, continuous-physician I&R Procedure code (CPT) selection complete Results AMB Hemoglobin A1c AMB Hemoglobin A1c 6.7 % Last Edit by DENIA Loaiza on 05/23/25 09:39 Results Reviewed Results Reviewed: Laboratory Last Values Glucose (Clinic) 138 mg/dL (60-115) H 05/23/25 09:29 Hgb A1c (Clinic) 6.7 % (4.0-6.0) H 05/23/25 09:34 Laboratory Tests 05/16/25 05/16/25 07:36 07:45 Estimated GFR > 60 AST 26 ALT 23 Alkaline Phosphatase 54 Triglycerides 99 Cholesterol 105 LDL Cholesterol, Calc 46 HDL Cholesterol 40 L TSH 2.03 Urine Creatinine 162.16 Urine Microalbumin 14.0 Microalb/Creat Ratio 8.6 Assessment & Plan Assessment & Plan (1) Type 2 diabetes mellitus with insulin therapy: Code(s): E11.9 - Type 2 diabetes mellitus without complications; Z79.4 - assisted (current) use of insulin Category: Medical Plan In summary this is a 74-year-old male with a controlled type 2 diabetes. Discussed pathophysiology of Type II Diabetes Mellitus with the patient in detail.? 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 Discussed lifestyle modification with the patient. Recommended 30 minutes of moderately vigorous exercise 5 days per week to promote weight loss. Continue Mounjaro to 10 mg weekly. Continue Tresiba 30 units daily. Continue metformin 1000 mg twice daily. We reviewed proper treatment of hypo and hyperglycemia. They have glucose tablets at home. He would like to start alternating visits between primary care and endocrinology as his diabetes is controlled. Follow up in 6 months for type 2 diabetes. Orders: Orders AMB Hemoglobin A1c Today E11.9 - Type 2 diabetes mellitus without complications AMB Glucose Monitoring Today E11.9 - Type 2 diabetes mellitus without complications Coding Level of Care Code Est Pt Level 4 (14444) Diagnoses Type 2 diabetes mellitus with insulin therapy E11.9; Z79.4 CPT Codes Details - CPT: 66597 - Glucose monitoring, continuous-physician I&R ([id number])
[2025-05-23 09:34] LABS: Glucose, Whole Blood 138 mg/dL (60-115)
== END 2025-05-23 09:59 | disposition home or self-care (01) ==
LOC: HO.ENCR 09:19
PROVIDERS: PCP Family Medicine; Visit Provider Physician Assistant Medical
DX: E11.9 Type 2 diabetes mellitus without complications (principal); Z79.4 Long term (current) use of insulin

== ENCOUNTER → 2025-05-23 09:18 | Outpatient (BNVA) | payer MEDICARE, SELFPAY | PROVIDERS: PCP Family Medicine; Visit Provider Physician Assistant Medical | DX: E11.65 Type 2 diabetes mellitus with hyperglycemia (principal); Z79.4 Long term (current) use of insulin | CPT/HCPCS: 82947; 83036; 99212 ==

== ENCOUNTER 2025-05-26 09:09 | Outpatient (AMB) | payer MEDICARE, SELFPAY ==
--- OUTSIDE RECORDS SUMMARY | 2024-10-04 04:15 | XMS_ITS ---
Author Organization [facility] Address [address] [place] [address] Care Team Providers Care Seed Pelleter Name Role Phone Tomasa PERRY, Poli Primary Care Provider Rochelle Escobedo Unavailable [phone] Alexandr Meza [phone] Willoughby to Dr Rojas Encounters Encounter Location Date Provider Diagnosis [address] [address] 10/04/2024 Alexandr Meza Plan Of Treatment Next Appt Details Provider Name:Rochelle carranza, 10/03/2025 10:00:00 AM, [facility] [address], [address], Progress Notes * Scott MONCADA RDOB: 8 (74 yo M)Acc No.[id number]:10/04/2024 Progress Note Patient: Scott ALVARENGA Provider: Hamlet Meza DPM :1950 A ge:74 Y S ex:Male Date:10/04/2024 Address:[address], [place], [place] Pcp:Poli Randolph MD Subjective: * Chief [...] 12/04/2023 Generated for Jolly thompson/Tamie/Tisha on: 0 05/26/2025 09:25 AM EDT
--- NOTE | 2025-05-26 09:24 | MHC.PC.OV ---
Vital Signs 05/26/25 09:31 Height 5 ft 10 in Weight 221 lb BMI 31.7 BP 130/70 Blood Pressure Location Lt brachial Position Sitting Respiration 16 Pulse 71 Pulse Source Pulse Oximeter Temp 97.7 F Temp Source Oral Pulse Oximetry (%) 97 Oxygen Delivery Method Room Air Intake Visit Reasons: f/u labs, health maintenance Intake Note: patient is scheduled for lb review Database Security Administrator Required: No Allergies lisinopril Allergy (Severe, Verified 05/26/25 09:29) Angioedema Medication List - Last Reconciled 05/26/25 by Poli Randolph MD aspirin (Adult Low Dose Aspirin) 81 mg PO DAILY atorvastatin 10 mg PO DAILY blood sugar diagnostic ([employer] Ultra Test strips) daily As directed, 90 days blood-glucose sensor ([employer] Linda 3 Sensor device) As directed every 14 days famotidine 20 mg PO BEDTIME 90 days flash glucose scanning reader ([employer] Linda 14 Day [place]) As directed flash glucose scanning reader (FreeStyle Linda 14 Day [place]) As directed flash glucose sensor ([employer] Linda 14 Day Sensor kit) As directed. 28 days fluticasone propionate 50 mcg/actuation (Flonase Allergy Relief) 1 spray intranasal Q12H 30 days metformin ER 1,000 mg (2 x 500 mg) PO BID 90 days metronidazole 0.75% 1 appl topical BID 30 days miscellaneous medical supply Diabetic Shoes. Daily As directed. 999 days multivitamin 1 tab PO DAILY olopatadine 0.2% (Pataday Once Daily Relief) 1 drp ophthalmic (eye) QAM 30 days pen needle, diabetic Use 4 daily, As directed. Ninety day supply. tirzepatide (Mounjaro) 10 mg (0.5 mL) subcut QWEEK Tresiba FlexTouch U-200 (insulin degludec) 30 units (0.15 mL) subcut DAILY NS Tobacco use date assessed: 03/29/24 Dental Screening Dental Screen Date: 03/29/24 HPI f/u labs, health maintenance HPI Details 74 y/o male presents to f/u [employer]ke[employer], health maintenance. Labs drawn 05/16/25. Reviewed labs with pt. Fasting glucose 136. Total protein mildly low at 6.3 g/dL. Triglycerides 99. TC 105. LDL 46. He is on artovastatin 10mg daily. HDL 40. A1c 05/23/25 6.7%. He is on mounjaro 10mg, Tresiba 30 units, metformin 1000mg b.i.d. Blood pressure today 130/70, 71p. [facility] Medical History Type 2 diabetes mellitus with insulin therapy Sleep apnea Diabetes Elevated cholesterol HTN (hypertension) GERD (gastroesophageal reflux disease) Encounter for screening Surgical History History of endoscopy Status post right foot surgery H/O colonoscopy (~02/12/23) History of appendectomy Family History Mother Lung cancer Social History Household Members: [facility] Alcohol intake: current Alcohol intake frequency: does not drink Patient Tobacco Use Status: Never used Tobacco e-Cigarette/Vaping Use: Never Used Second Hand Smoke Exposure: No service: No 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 occupational exposures/hazards: No Cognitive needs: No Hearing needs: Yes (Hearing aides) Vision needs: Yes (Patient wears glasses.) Questionnaire Thrive Questionnaire Date Thrive assessed: 02/17/25 I am a: Patient What is your living situation today?: I have a steady place to live Within the past 12 months, did the food you bought not last and you didn't have the money to get more?: Never true Within the past 12 months, did you worry whether your food would run out before you got money to buy more?: Never true Do you have trouble paying for medicines?: No Do you have trouble getting transportation to medical appointments?: No Do you have trouble paying your heating and electricity bill?: No Do you have trouble taking care of your child, family member or friend?: No Do you have trouble with day-to-day activities such as bathing, preparing meals, shopping, managing finances, etc.?: No Are you currently unemployed and looking for a job?: No Are you interested in more education?: No Please select the resources that you would like help with: None Currently or been in a relationship where the following occur: No concerns reported THRIVE Score: 0 WILD-7 AMB Questionnaire WILD-7 Date WILD - 7 assessed: 03/29/24 Source: Developed by Drs. Adrian Limon, Kimberley Zavala, Ramon Mackay and colleagues, with an educational balaji from [employer]. Review of Systems Const Denies chills, Denies fatigue, Denies fever(s), Denies headache(s) and Denies weakness ENT Denies dizziness and Denies headache(s) Card Denies chest pain, Denies lightheadedness, Denies dyspnea and Denies other (Palpitations) Resp Denies cough, Denies dyspnea, Denies wheezing and Denies other ( shortness of breath) Musc Denies numbness and Denies tingling Neuro Denies dizziness, Denies headache(s), Denies numbness, Denies tingling, Denies paresthesias and Denies weakness Psych Denies anxiety and Denies depression Endo Denies fatigue Aller/Immun Denies wheezing Physical exam (Primary Care) Vital Signs: Last Vital Signs Temp 97.7 F 05/26/25 09:31 Pulse 71 05/26/25 09:31 Resp 16 05/26/25 09:31 BP 130/70 05/26/25 09:31 Pulse Ox 97 05/26/25 09:31 Oxygen Delivery Method Room Air 05/26/25 09:31 BMI result Body Mass Index 31.7 Tobacco/Smoking Status: Tobacco use Status Tobacco use date assessed 03/29/24 05/26/25 09:25 Patient Tobacco Use Status Never used Tobacco 05/26/25 09:25 e-Cigarette/Vaping Use Never Used 05/26/25 09:25 Thrive Assessment: Date of Thrive Assessment Date Thrive assessed 02/17/25 05/26/25 09:25 Currently or been in a relationship where the following occur: No concerns reported Const General: no acute distress and well developed Nutritional Appearance: well nourished Orientation/consciousness: patient oriented x3 HENMT Head: Yes normocephalic and Yes atraumatic Eyes General: appearance normal, both eyes and all related structures Pupils: Equal, round and reactive pupils present EOM: EOMs intact bilaterally Resp Effort & Inspection: normal respiratory effort Auscultation: clear to auscultation bilaterally Cardio Rate: regular rate Rhythm: regular rhythm Heart sounds: S1 normal heart sound present, S2 normal heart sound present, no gallops, no murmurs and no rubs Neuro General: patient oriented x3 and gait normal Cranial nerves: Yes Equal, round and reactive pupils present Psych Affect: normal affect Coding Level of Care Code Est Pt Level 4 (50370) Diagnoses Diabetes type 2, controlled E11.9 Hyperlipidemia E78.5 Essential hypertension I10 Screening for colon cancer Z12.11 Screening for prostate cancer Z12.5 Assessment & Plan Assessment & Plan (1) Diabetes type 2, controlled: Code(s): E11.9 - Type 2 diabetes mellitus without complications Category: Medical Plan: A1c stable at 6.7%. Goal is less than 7.0% Good control Continue current medication regimen Follow-up with endocrinology as recommended (2) Hyperlipidemia: Code(s): E78.5 - Hyperlipidemia, unspecified Category: Medical Plan: Lipids appear rather well controlled on atorvastatin. HDL slightly low at 40 and goal is greater than 40 Encouraged exercise Continue current medication (3) Essential hypertension: Code(s): I10 - Essential (primary) hypertension Category: Medical Plan: Blood pressure is well controlled (4) Screening for colon cancer: Code(s): Z12.11 - Encounter for screening for malignant neoplasm of colon Category: Medical Plan: Colonoscopy next due in January 2027 (5) Screening for prostate cancer: Code(s): Z12.5 - Encounter for screening for malignant neoplasm of prostate Category: Medical Plan: Due for PSA level which is ordered He will give this drawn prior to our next visit in September. Orders: Orders Prostate Specific Antigen Scr Today Z12.5 - Encounter for screening for malignant neoplasm of prostate
[2025-05-26 09:31] VITALS: BP 130/70; PULSE 71; RESP 16; TEMP 36.5; O2SAT 97; BMI 31.7
== END 2025-05-26 10:08 | disposition home or self-care (01) ==
LOC: HO.HMCFM 09:10
PROVIDERS: PCP Family Medicine; Visit Provider Family Medicine
DX: E11.9 Type 2 diabetes mellitus without complications (principal); E78.5 Hyperlipidemia, unspecified; I10 Essential (primary) hypertension; Z12.11 Encounter for screening for malignant neoplasm of colon; Z12.5 Encounter for screening for malignant neoplasm of prostate

== ENCOUNTER → 2025-05-26 09:09 | Outpatient (BNVA) | payer MEDICARE, SELFPAY | PROVIDERS: PCP Family Medicine; Visit Provider Family Medicine | DX: E11.9 Type 2 diabetes mellitus without complications (principal); E78.5 Hyperlipidemia, unspecified; I10 Essential (primary) hypertension | CPT/HCPCS: 99212 ==

== ENCOUNTER 2025-07-20 10:12 | Outpatient (AMB) | payer MEDICARE, SELFPAY ==
--- OUTSIDE RECORDS SUMMARY | 2024-10-04 04:15 | XMS_ITS ---
Author Organization [facility] Address [address] [place] [address] Care Team Providers Care Commission Auditor Name Role Phone Tomasa PERRY, Poli Primary Care Provider Rochelle Escobedo Unavailable [phone] Alexandr Meza [phone] Willoughby to Dr Rojas Encounters Encounter Location Date Provider Diagnosis [address] [address] 10/04/2024 Alexandr Meza Plan Of Treatment Next Appt Details Provider Name:Rochelle carranza, 10/03/2025 10:00:00 AM, [facility] [address], [address], Progress Notes * Scott MONCADA RDOB: 8 (74 yo M)Acc No.[id number]:10/04/2024 Progress Note Patient: Scott ALVARENGA Provider: Hamlet Meza DPM :1950 A ge:74 Y S ex:Male Date:10/04/2024 Address:[address], [place], [place] Pcp:Poli Randolph MD Subjective: * Chief [...] 12/04/2023 Generated for Jolly thompson/Tamie/Tisha on: 0 07/20/2025 11:30 AM EDT
--- NOTE | 2025-07-20 10:13 | MHC.PC.OV ---
Vital Signs 07/20/25 10:18 Height 5 ft 10 in Weight 215 lb BMI 30.8 BP 116/60 Blood Pressure Location Lt brachial Position Sitting Respiration 16 Pulse 74 Pulse Source Pulse Oximeter Temp 97.2 F Temp Source Oral Pulse Oximetry (%) 98 Oxygen Delivery Method Room Air Intake Visit Reasons: right hand issues/cortizone referral Intake Note: patient here c/o right hand issues and requesting cortizone referral Manager Water Wastewater Required: No Allergies lisinopril Allergy (Severe, Verified 07/20/25 10:17) Angioedema Medication List - Last Reconciled 07/20/25 by Poli Randolph MD aspirin (Adult Low Dose Aspirin) 81 mg PO DAILY atorvastatin 10 mg PO DAILY blood sugar diagnostic (Buru Buru Ultra Test strips) daily As directed, 90 days blood-glucose sensor (SinequaStyle Linda 3 Sensor device) As directed every 14 days famotidine 20 mg PO BEDTIME 90 days flash glucose scanning reader (SinequaStyle Linda 14 Day Kermit) As directed flash glucose scanning reader (FreeStyle Linda 14 Day Kermit) As directed flash glucose sensor (FreeStyle Linda 14 Day Sensor kit) As directed. 28 days fluticasone propionate 50 mcg/actuation (Flonase Allergy Relief) 1 spray intranasal Q12H 30 days metformin ER 1,000 mg (2 x 500 mg) PO BID 90 days metronidazole 0.75% 1 appl topical BID 30 days miscellaneous medical supply Diabetic Shoes. Daily As directed. 999 days multivitamin 1 tab PO DAILY olopatadine 0.2% (Pataday Once Daily Relief) 1 drp ophthalmic (eye) QAM 30 days pen needle, diabetic Use 4 daily, As directed. Ninety day supply. tirzepatide (Mounjaro) 10 mg (0.5 mL) subcut QWEEK Tresiba FlexTouch U-200 (insulin degludec) 30 units (0.15 mL) subcut DAILY NS Tobacco use date assessed: 07/20/25 Fall risk assessment: No Falls in past year Last assessed Fall Risk: 07/20/25 Dental Screening Dental Screen Date: 07/20/25 Did you have a dental visit in the last 12 months?: No Did you have a dental problem in the last 6 months where you did not have access to dental care?: No Was dental information given to patient?: No HPI right hand issues/cortizone referral HPI Details 74 y/o male presents with complaints of R trigger finger. Reports FHx of trigger finger. [facility] Medical History Type 2 diabetes mellitus with insulin therapy Sleep apnea Diabetes Elevated cholesterol HTN (hypertension) GERD (gastroesophageal reflux disease) Encounter for screening Surgical History History of endoscopy Status post right foot surgery H/O colonoscopy (~02/12/23) History of appendectomy Family History Mother Lung cancer Social History Household Members: Spouse Housing: Condominium Alcohol intake: current Alcohol intake frequency: does not drink Patient Tobacco Use Status: Never used Tobacco e-Cigarette/Vaping Use: Never Used Second Hand Smoke Exposure: No service: No 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 occupational exposures/hazards: No Cognitive needs: No Hearing needs: Yes (Hearing aides) Vision needs: Yes (Patient wears glasses.) Questionnaire Thrive Questionnaire Date Thrive assessed: 02/17/25 I am a: Patient What is your living situation today?: I have a steady place to live Within the past 12 months, did the food you bought not last and you didn't have the money to get more?: Never true Within the past 12 months, did you worry whether your food would run out before you got money to buy more?: Never true Do you have trouble paying for medicines?: No Do you have trouble getting transportation to medical appointments?: No Do you have trouble paying your heating and electricity bill?: No Do you have trouble taking care of your child, family member or friend?: No Do you have trouble with day-to-day activities such as bathing, preparing meals, shopping, managing finances, etc.?: No Are you currently unemployed and looking for a job?: No Are you interested in more education?: No Please select the resources that you would like help with: None Currently or been in a relationship where the following occur: No concerns reported THRIVE Score: 0 WILD-7 AMB Questionnaire WILD-7 Date WILD - 7 assessed: 03/29/24 Source: Developed by Drs. Adrian Limon, Kimberley Zavala, Ramon Mackay and colleagues, with an educational balaji from [employer]. Review of Systems Const Denies chills, Denies fatigue, Denies fever(s), Denies headache(s) and Denies weakness ENT Denies dizziness and Denies headache(s) Card Denies dyspnea Resp Denies cough, Denies dyspnea, Denies wheezing and Denies other (shortness of breath) Musc Denies numbness and Denies tingling Neuro Denies dizziness, Denies headache(s), Denies numbness, Denies tingling and Denies weakness Psych Denies anxiety and Denies depression Endo Denies fatigue Aller/Immun Denies wheezing Physical exam (Primary Care) Vital Signs: Last Vital Signs Temp 97.2 F 07/20/25 10:18 Pulse 74 07/20/25 10:18 Resp 16 07/20/25 10:18 BP 116/60 07/20/25 10:18 Pulse Ox 98 07/20/25 10:18 Oxygen Delivery Method Room Air 07/20/25 10:18 BMI result Body Mass Index 30.8 Tobacco/Smoking Status: Tobacco use Status Tobacco use date assessed 07/20/25 07/20/25 10:23 Patient Tobacco Use Status Never used Tobacco 07/20/25 10:23 e-Cigarette/Vaping Use Never Used 07/20/25 10:23 Thrive Assessment: Date of Thrive Assessment Date Thrive assessed 02/17/25 07/20/25 10:23 Currently or been in a relationship where the following occur: No concerns reported Const General: well developed; No acute distress Nutritional Appearance: well nourished Orientation/consciousness: patient oriented x3 HENMT Head: Yes normocephalic and Yes atraumatic Eyes General: appearance normal, both eyes and all related structures Pupils: Equal, round and reactive pupils present EOM: EOMs intact bilaterally Resp Effort & Inspection: normal respiratory effort Neuro General: patient oriented x3 and gait normal Cranial nerves: Yes Equal, round and reactive pupils present Extrem Other: Can flex R middle finger but unable to extend w/o assist. No erythema or warmth Normal sensation & Circulation Psych Affect: normal affect Coding Level of Care Code Est Pt Level 3 (78405) Diagnoses Right trigger finger M65.30 Assessment & Plan Assessment & Plan (1) Right trigger finger: Code(s): M65.30 - Trigger finger, unspecified finger Category: Medical Plan: He can continue using his arthritis cream He can use OTC Aleve Ice/Heat Will refer to hand surgery at [facility] [place] [facility] Orders: Referrals Hand Surgery Referral M65.30 - Trigger finger, unspecified finger
[2025-07-20 10:18] VITALS: BP 116/60; PULSE 74; RESP 16; TEMP 36.2; O2SAT 98; BMI 30.8
--- OUTSIDE RECORDS SUMMARY | 2025-07-20 11:31 | XMS_ITS | Patient Health Record ---
Author Organization [facility] Address [address] [place] [address] Care Team Providers Care Core Paster Name Role Phone Poli Randolph MD Primary Care Provider Rochelle Escobedo Unavailable [phone] Alexandr Meza Unavailable [phone] Allergies No Known Allergies Results Component Value [...] Lesion(s) (L85.1 10/04/2024 Active Cephalexin 500 MG Oral; Duration: 4 Not-Taking Extra Depth Diabetic Shoes with 3 Pair Custom heat-molded multi-density innersoles for 1 year Dx: 09/23/2022 N ot-Taking Multivitamin - 1 tablet Orally Once a day; Duration: 30 day(s) Active metroNIDAZOLE 250 MG 1 tablet Orally Thr ee times a day; Duration: 10 day(s) Active Atorvastatin Calcium 10 MG Oral; Duration: 90 Active Aspirin 81 MG 1 tablet Orally Once a day; Duration: 30 day(s) Active Famotidine Active Mounjaro Active Cipro 750 MG 1 tablet Orally once a day; Duration: 14 days 09/02/2022 Not-Takin g metFORMIN HCl 500 MG 1 tablet with a ronnie l Orally Once a day; Duration: 30 day(s) Active Lantus SoloStar 100 UNIT/ML Subcutaneous; Duration: 102 Active HumaLOG KwikPen 100 UNIT/ML Subcutaneous; Duration: 100 Active Social History Tobacco Use: Social [...] Problem Acquired hammer toe of right foot (4873058535679113 ) Other hammer toe(s) (acquired), right foot (M20.41) Active confirmed Problem Acquired hammer toe of left foot (6285233968110076 ) Other hammer toe(s) (acquired), left foot (M20.42) Active confirmed Problem Polyneuropathy due to type 2 diabetes mellitus (633712173) Type 2 diabetes mellitus with diabetic polyneuropathy (E11.42) Active confirmed Vital Signs Height 5ft 10in in 10/04/2024 Weight 232 lbs 10/04/2024 BMI 33.28 kg/m2 10/04/2024 Procedures Procedure Date Ordered Date Performed Result Body Sit e 78954-CNUVSCZ NAIL, 1-5 10/04/2024 N/A 98951-IKRI SKIN LESIONS, 2 TO 4 10/04/2024 N/A C3562-FJUTMYMZ DYSTROPHIC NAILS ANY # 10/04/2024 N/A Encounters Encounter Location Date Provider Diagnosis [facility] [address] [address] 10/04/2024 Rochelle Rojas Other hammer toe(s) (acquired), [...] X ray : Foot, left 3V 09/02/2022 83739-ENXJUAV NAIL, 1-5 10/04/2024 76419-ZGVR SKIN LESIONS, 2 TO 4 10/04/20 24 32124-QQVG SKIN LESIONS, 2 TO 4 09/29/20 23 C7555-HTGKRJZE DYSTROPHIC NAILS ANY # K5189-NMMIBESX DYSTROPHIC NAILS ANY # Next Appt Details Provider Name:Rochelle Holder dillon, 10/03/2025 10:00:00 AM, [address] [facility] [place], [place] [address], [place], [address], Insurance Providers Payer Name Payer Address Payer Phone Subscriber Number Group Number Insured Name Patient Relationship to Insured Coverage Start Date Coverage End Date [employer] Medicare [id number] [address] [address] [place] [address] [phone] [id number] Scott Moncada Self - patient is the insured Medical (General) History Medical History History ICD Code Broken bones Diabetes mellitus, Type II, without comp lications Chicken pox Joint implants/screws Gastroesophageal reflux disease (GERD) Hypertension Surgical History Surgery Date(Month/Year) appendectomy 1978 foot surgery 2007 Hospitalization History Reason Date(Month/Year) [facility]- inf wound 08/19/22
== END 2025-07-20 14:09 | disposition home or self-care (01) ==
LOC: HO.HMCFM 10:13
PROVIDERS: PCP Family Medicine; Visit Provider Family Medicine
DX: M65.30 Trigger finger, unspecified finger (principal)

== ENCOUNTER → 2025-07-20 10:12 | Outpatient (BNVA) | payer MEDICARE, SELFPAY | PROVIDERS: PCP Family Medicine; Visit Provider Family Medicine | DX: M65.321 Trigger finger, right index finger (principal) | CPT/HCPCS: 99212 ==

== ENCOUNTER 2025-09-22 08:26 | Outpatient (AMB) | payer MEDICARE, SELFPAY ==
--- OUTSIDE RECORDS SUMMARY | 2024-10-04 03:15 | XMS_ITS ---
Author Organization [facility] Address [address] [place] [address] Care Team Providers Care Nail Technician Teacher Name Role Phone Tomasa PERRY, Poli Primary Care Provider Rochelle Escobedo Unavailable [phone] Alexandr Thayer Unavailable [phone] Willoughby to Dr Rojas Encounters Encounter Location Date Provider Diagnosis [facility] [address] [place] [address] 10/04/2024 Alexandr Thayer Plan Of Treatment Next Appt Details Provider Name:Rochelle carranza, 10/03/2025 10:00:00 AM, [address] [address], [place], [address], Progress Notes * Scott MONCADA RDOB: 8 (75 yo M)Acc No.[id number]:10/04/2024 Progress Note Patient: Scott ALVARENGA Provider: Hamlet Meza DPM :1950 A ge:74 Y S ex:Male Date:10/04/2024 Address:[address], [place] Pcp:Poli Randolph MD Subjective: * Chief Complaints: * [address] to Dr Rojas. * Medical History: Objective: * Vitals: Assessment: Plan: * Treatment: * Images: * The named appointment provid er may or may not be the originator of this progress note, and it is not deemed complete until electronically signed by the appointment provider. Sign off status: Pending * Provider: Hamlet Meza DPM Date: 12/04/2023 Generated for Jolly Poe/Tisha on: 11/22/2024 08:56 AM EST
[2025-09-22 08:32] VITALS: BMI 30.8
--- NOTE | 2025-09-22 08:32 | A.OFFVIS_ITS ---
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 Patient reports that he has had locking and catching of the right middle finger for about 3-4 months now, this is worse in the morning and is quite painful. He notices that the right small finger has started to catch as well. He has been using a topical cream to help with the pain. 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 Patient reports that he has had locking and catching of the right middle finger for about 3-4 months now, this is worse in the morning and is quite painful. He notices that the right small finger has started to catch as well. He has been using a topical cream to help with the pain. [facility] Medical History Type 2 diabetes mellitus with insulin therapy Sleep apnea Diabetes Elevated cholesterol HTN (hypertension) GERD (gastroesophageal reflux disease) Encounter for screening Surgical History History of endoscopy Status post right foot surgery H/O colonoscopy (~02/12/23) History of appendectomy Family History Mother Lung cancer Social History Household Members: Spouse Housing: Condominium Alcohol intake: current Alcohol intake frequency: does not drink Patient Tobacco Use Status: Never used Tobacco e-Cigarette/Vaping Use: Never Used Second Hand Smoke Exposure: No service: No 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 Neuro: Normal sensation of the tips of all digits of the right hand at this time Vascular: Cap refill brisk Pain: Tenderness to palpation of the A1 lucila of the right middle finger Pain associated with locking and catching of the right middle finger ROM: Visible and palpable locking and catching of the right middle finger in a flexed position Skin: No lacerations or abrasions. General: No ecchymosis, erythema, or evidence of infection. Psych: Appears grossly normal Affect normal Attitude cooperative Office Procedures AMB Tendon Injection Tendon Injection 93618-Txonwj Tendon Sheath Injection All charges added?: Procedure code (CPT) selection complete Assessment & Plan Assessment & Plan (1) Trigger finger, right middle finger: Code(s): M65.331 - Trigger finger, right middle finger Category: Medical Plan 1. Right middle finger trigger finger Patient is educated about this condition Patient is educated about the treatment options available Patient would like to proceed with steroid injection at this time The risks and benefits of a steroid injection including but not limited to risk of damage to blood vessels, nerves, tendons, infection, skin bleaching, failure to improve symptoms, increased pain, and possible need for further injections or other intervention were discussed with the patient and the patient wishes to proceed with the steroid injection. Once consent was obtained, I sterilely prepped the area over the A1 lucila of the flexor tendon sheath of the right middle finger. I then injected the flexor tendon sheath with a combination of 1 mL of dexamethasone (4mg/ml), and 1% lidocaine. The patient tolerated the procedure well with no complications. If the patient continues to have locking and catching 4-6 weeks following this injection, they may call to schedule appointment to discuss alternative treatment options Follow-up prn Coding Level of Care Code New Pt Level 3 (54769) Diagnoses Trigger finger, right middle finger M65.331 CPT Codes Tendon Injection - Tendon Injection 1: 47830-Bhuprn Tendon Sheath Injection ([id number])
--- OUTSIDE RECORDS SUMMARY | 2025-09-22 08:56 | XMS_ITS | Patient Health Record ---
Author Organization [facility] Address [address] [place] [address] Care Team Providers Care Chief Medical Technologist Name Role Phone Poli Randolph MD Primary Care Provider Rochelle Escobedo Unavailable [phone] Alexandr Thayer Unavailable [phone] Allergies No Known Allergies Results Component Value [...] Problem Acquired hammer toe of right foot (4353339179128760 ) Other hammer toe(s) (acquired), right foot (M20.41) Active confirmed Problem Acquired hammer toe of left foot (8318582321767258 ) Other hammer toe(s) (acquired), left foot (M20.42) Active confirmed Problem Polyneuropathy due to type 2 diabetes mellitus (568214389) Type 2 diabetes mellitus with diabetic polyneuropathy (E11.42) Active confirmed Vital Signs Height 5ft 10in in 10/04/2024 Weight 232 lbs 10/04/2024 BMI 33.28 kg/m2 10/04/2024 Procedures Procedure Date Ordered Date Performed Result Body Sit e 38581-BEIEJRD NAIL, 1-5 10/04/2024 N/A 39931-XWOR SKIN LESIONS, 2 TO 4 10/04/2024 N/A K6282-JEPBMVPO DYSTROPHIC NAILS ANY # 10/04/2024 N/A Encounters Encounter Location Date Provider Diagnosis [facility] [address] [address] 10/04/2024 Rochelle Rojas Other hammer toe(s) (acquired), [...] X ray : Foot, left 3V 09/02/2022 68444-ILICFIZ NAIL, 1-5 10/04/2024 96722-OILX SKIN LESIONS, 2 TO 4 10/04/20 24 00814-KLIY SKIN LESIONS, 2 TO 4 09/29/20 23 C5782-SIDHCWAT DYSTROPHIC NAILS ANY # B7583-LQBCMPCL DYSTROPHIC NAILS ANY # Next Appt Details Provider Name:Rochelle Holder dillon, 10/03/2025 10:00:00 AM, [address] [address], [place], [address], Insurance Providers Payer Name Payer Address Payer Phone Subscriber Number Group Number Insured Name Patient Relationship to Insured Coverage Start Date Coverage End Date [employer] Medicare [id number] [address] [address] [place] [address] [phone] [id number] Scott Moncada Self - patient is the insured Medical (General) History Medical History History ICD Code Broken bones Diabetes mellitus, Type II, without comp lications Chicken pox Joint implants/screws Gastroesophageal reflux disease (GERD) Hypertension Surgical History Surgery Date(Month/Year) appendectomy 1978 foot surgery 2006 Hospitalization History Reason Date(Month/Year) [facility]- inf wound 08/19/22
--- OUTSIDE RECORDS SUMMARY | 2025-09-22 08:56 | XMS_ITS ---
Author Organization Unknown ENCOUNTERS Encounter Performer Location Date Diagnosis Diagnosis Status Pre Admit [address] [id number] [address] [id number] [facility] [address] [place] [address] [id number] [facility] Outpatient [address] [id number] [place] *Note: Encounters from your own facility or health system may be excluded. Allergies, Adverse Reactions, Alerts Allergen Type Severity Identification Date Medications Name Date Quantity Days Supplied GPI Number
== END 2025-09-22 09:04 | disposition home or self-care (01) ==
LOC: HO.HOS 08:27
PROVIDERS: PCP Family Medicine
DX: M65.331 Trigger finger, right middle finger (principal)
CPT/HCPCS: 20550; 99203

== ENCOUNTER → 2025-09-22 08:26 | Outpatient (BNVA) | payer MEDICARE, SELFPAY | PROVIDERS: PCP Family Medicine | DX: M65.331 Trigger finger, right middle finger (principal) | CPT/HCPCS: 20550; 99202; J1100; J2003 ==

== ENCOUNTER 2025-10-04 08:27 | Outpatient (AMB) | payer MEDICARE, SELFPAY ==
--- OUTSIDE RECORDS SUMMARY | 2024-10-04 03:15 | XMS_ITS ---
Author Organization [facility] Address [address] [place] [address] Care Team Providers Care Tactical Debriefer Name Role Phone Tomasa PERRY, Poli Primary Care Provider Rochelle Escobedo Unavailable [phone] Alexandr Thayer Unavailable [phone] Willoughby to Dr Rojas Encounters Encounter Location Date Provider Diagnosis [facility] [address] [place] [phone] 10/04/2024 Alexandr Thayer Plan Of Treatment Next Appt Details Provider Name:Rochelle carranza, 10/09/2026 10:00:00 AM, [address] [address], [place], [address], Progress Notes * Scott MONCADA RDOB: 8 (75 yo M)Acc No.[id number]:10/04/2024 Progress Note Patient: Scott ALVARENGA Provider: Hamlet Meza DPM :1950 A ge:74 Y S ex:Male Date:10/04/2024 Address:[address], [place] Pcp:Poli Randolph MD Subjective: * Chief [...] Date: 12/04/2023 Generated for Jolly Poe/Tisha on: 12/04/2024 04:11 PM EST
--- OUTSIDE RECORDS SUMMARY | 2025-10-03 05:00 | XMS_ITS ---
Author Organization [facility] Naomi Singletaryley Address [address] [place] [address] Care Team Providers Care Driller'S Assistant Name Role Phone Poli Randolph MD Primary Care Provider Rochelle Escobedo Unavailable [phone] Allergies No Known Allergies REASON FOR VISIT Toe Irritation, At Risk Footcare Medications Medication SIG (Take, Route, Frequency, Duration) Notes Start Date End Date Status metFORMIN HCl 500 MG 1 tablet with a ronnie l Orally Once a day; Duration: 30 day(s) Active metroNIDAZOLE 250 MG 1 tablet Orally Thr ee times a day; Duration: 10 day(s) Active Multivitamin - 1 tablet Orally Once a day; Duration: 30 day(s) Active Lantus SoloStar 100 UNIT/ML Subcutaneous; Duration: 102 Active Extra Depth Diabetic Shoes with 3 Pair Custom heat-molded multi-density innersoles for 1 year Dx: 09/23/2022 N ot-Taking HumaLOG KwikPen 100 UNIT/ML Subcutaneous; Duration: 100 Active Atorvastatin Calcium 10 MG Oral; Duration: 90 Active Extra Depth Orthopedic Shoes (1 Pair) with Customized Heat Molded Multidensity Innersoles (3 Pair) as directed Dx: NIDDM/Polyneuropathy (E11.42), Hammertoe Foot Deformity (M20.41,M20.42), Preulcerative Skin Lesion(s) (L85.1 Active Famotidine Active Aspirin 81 MG 1 tablet Orally Once a day; Duration: 30 day(s) Active Mounjaro Active Cephalexin 500 MG Oral; Duration: 4 Not-Taking Cipro 750 MG 1 tablet Orally once a day; Duration: 14 days 09/02/2022 Not-Wiliam banuelos Social History Tobacco Use: Social History Observation Description Date Details (start date - stop date) Never Smoker NA - NA Tobacco use other than smoking: Question Answer Notes Are you an other tobacco user? No Tobacco Control (Standard) Question Answer Notes Tobacco use: Nonsmoker Additional Findings: Tobacco non-user Current no nsmoker AUDIT-C (Standard) Question Answer Notes Did you have a drink contain ing alcohol in the past year? Yes How often did you have a dri nk containing alcohol in the past year? Monthly or less (1 point) How many drinks did you have on a typical day when you were drinking in the past year? 1 or 2 drinks (0 point) How often did you have six o r more drinks on one occasion in the past year? Never (0 point) Points 1 Interpretation Negative Vital Signs Height 5ft 10in in 10/03/2025 Weight 212 lbs 10/03/2025 BMI 30.42 kg/m2 10/03/2025 Procedures Procedure Date Ordered Date Performed Result Body Sit e 04264-HEGOLMY NAIL, 1-5 10/03/2025 N/A 88189-RWHE SKIN LESIONS, 2 TO 4 10/03/2025 N/A V5879-RAXNNXHF DYSTROPHIC NAILS ANY # 10/03/2025 N/A Encounters Encounter Location Date Provider Diagnosis [facility] [address] [address] 10/03/2025 Rochelle Rojas Other hammer toe(s) (acquired), right foot M20.41 ; Other hammer toe(s) (acquired), left foot M20.42 ; Type 2 diabetes mellitus with diabetic polyneuropathy E11.42 and Tinea unguium B35.1 Assessments Encounter Date Diagnosis (ICD Code) Assessment Notes Treatment Notes Treatment Clinical Notes Section Notes 10/03/2025 Other hammer toe(s) (acquired), right foot (ICD-10 - M20.41) Patient Educated with: DIABETIC FOOT CARE INSTRUCTIONS. pdf (DIABETIC FOOT CARE INSTRUCTIONS. pdf) 10/03/2025 Other hammer toe(s) (acquired), left foot (ICD-10 - M20.42) 10/03/2025 Type 2 diabetes mellitus with diabetic polyneuropathy (ICD-10 - E11.42) 10/03/2025 Tinea unguium (ICD-10 - B35.1) Plan Of Treatment Medication Medication Name Sig Start Date Stop Date Notes Extra Depth Orthopedic Shoes (1 Pair) with Customized Heat Molded Multidensity Innersoles (3 Pair) as directed Dx: NIDDM/Polyneuropathy (E11.42), Hammertoe Foot Deformity (M20.41,M20.42), Preulcerative Skin Lesion(s) (L85.1 Treatment Notes Assessment Notes Other hammer toe(s) (acquired), right fo ot Patient Educated with: DIABETIC FOOT CARE INSTRUCTIONS.pdf (DIABETIC FOOT CARE INSTRUCTIONS.pdf) Pending Test Test Name Order Date 43990-LOMNTTH NAIL, 1-5 10/03/2025 74622-JANT SKIN LESIONS, 2 TO 4 10/03/20 Y3151-KATSABQT DYSTROPHIC NAILS ANY # Next Appt Details Follow Up: 3 Months, Reason: Provider Name:Rochelle carranza, 10/09/2026 10:00:00 AM, [address] [facility], [address], [place], [address], Procedure Notes * Category Sub-Category Detail Notes Keratoma Treatment Parring or Cutting o f Benign Hyperkeratotic Lesion(s) (-56) 2-4 Lesions - The Benign hyperkeratotic lesions, as described in exam, were pared, and/or cut utilizing a sterile 15 blade, tissue nippers, and/or dremel - 87965 Debride Nails 1-5 Procedure: Performance of this nail treatment by a nonprofessional would put this patients foot and overall health at risk. Therefore, debridement to affected nail(s), as described in exam, was performed extensively to reduce/remove overall nail length, girth, thickness, subungual debris, and necrotic tissue, by manual and/or electrical means through the use of a nail nipper and/or dremel-type card grinder, to a more viable healthy nail plate or bed tissue 1-5. Silver nitrate used for any petechial bleeding as necessary. Definitive antifungal treatment options have been reviewed and discussed with the patient. The patient chooses, no pharmaceutical tx will apply over the counter Ciclopirox gel 0.77 percent, - 20494 Nail Reduction Nail Reduction (-27) Trimming o f dystrophic nails, as described in exam, was performed to reduce/remove overall nail length and girth, by manual and electrical means with use of a nail nipper and/or dremel, to more viable healthy nail plate or bed tissue, any number - G0127 Progress Notes * Scott MONCADA RDOB: [birth year] (75 yo M)Acc No.[id number]:10/03/2025 Progress Note Patient: Scott ALVARENGA Provider: Alexandr Rojas DPM :1950 A ge:75 Y S ex:Male Date:10/03/2025 Address:[address] [place] [address], [address] Pcp:Poli Randolph MD Subjective: * Chief Complaints: * T oe IrritationAt Risk Footcare * HPI: T oe pain: Location: B /L feet. Duration: s everal years. Course: w orse. Aggravated by: s hoes, any pressure. Treatments: c hange in shoes. A t Risk footcare: Pt States Last PCP Visit: D ate 1 * ROS: G eneral/Constitutional: Nausea d enies. V omiting d enies. H manan Thirst d enies. L oss appetite d enies. C hills d enies. F atigue d enies.?Fever d enies. N ight Sweats d enies. U nexplained weight loss d enies. U nexplained weight gain d enies. H EENTM: Dentures a dmits. D izziness d enies. G lasses/contacts a dmits. R etinopathy d enies. B lurred/double vision d enies. T MJ?denies. D ischarge/drainage d enies. I mplants d enies. S ore throat d enies. D ental implants d enies. H ilia of hearing a dmits. D ifficulty chewing/swallowing/speaking d enies. N ose bleeds d enies. S ore mouth d enies. ? R espiratory: On Oxygen d enies. P neumonia/pleurisy d enies.?Bronchitis d enies. E mphysema d enies. C oughing d enies. C ough blood?denies. S hortness of breath d enies. W heezing d enies. C ardiovascular: Pacemaker d enies. M INFRASTRU[employer]URE SOLUTIONS ARCHITECT d enies. W PW d enies. C HF d enies. H eart attack d enies. S eptal defect d enies. R apid beat d enies. C hest pain d enies. A trial Fib. d enies. M urmur/Palpitations d enies. G astrointestinal: Hemorrhoids d enies. S tomach/Abdominal pain d enies. D ark blood stool d enies. I rritable bowel d enies. C onstipation d enies. D iarrhea d enies. H ematology: Swelling d enies. C lots d enies. V aricose Veins d enies. B ruising d enies. B leeding problem d enies. G enitourinary: Blood urine d enies. F requent/Painfu/urination/bladder control d enies. K idney stones d enies. I nfection (UTI) d enies. N ephropathy d enies. s ex trans dis (STD) d enies. P rostate d enies. M usculoskeletal: Hammertoes d enies. B unions d enies. B ack Pain d enies. M uscle Cramps/ Resting d enies. M uscle cramps / walking d enies.?Generalized aches and pains d enies. W eakness d enies. I nteg.: Han d enies. S cars d enies. C orns/calluses?denies. I ngrown nails a dmits. P ainful nails d enies. O pen Sores d enies. R ashes d enies. N eurologic: Difficulty sleeping d enies. B rain disorder d enies. N umbness d enies. B alance trouble d enies. C onfusion d enies. F ainting/blackouts d enies. T ingling d enies. T remors d enies. * Medical History: * Surgical History: a ppendectomy 1978foot surgery 2006 * Hospitalization/Major Diagno stic Procedure: N oble- inf wound 08/19/22 * Family History: M other: , diagnosed with Other malignant neoplasm of unspecified site. F ather: . S iblings: diagnosed with Other malignant neoplasm of unspecified site. * Social History: T obacco Use: T obacco use other than smoking A re you an other tobacco user? N o Tobacco Control (Standard) T obacco use: N onsmoker A dditional Findings: Tobacco non-user C urrent nonsmoker D rugs/Alcohol: D rugs H ave you used drugs other than those for medical reasons in the past 12 months? N o M iscellaneous: C affeine: yes, frequency:, 1-2 cups per day. Marital status: . Occupation: Retired. D rug/Alcohol: A MYNOR-C (Standard) D id you have a drink containing alcohol in the past year? Y es H ow often did you have a drink containing alcohol in the past year? M onthly or less (1 point) H ow many drinks did you have on a typical day when you were drinking in the past year? 1 or 2 drinks (0 point) H ow often did you have six or more drinks on one occasion in the past year? N ever (0 point) P oints 1 I nterpretation N egative * Medications: T akingMounjaro Famotidine Aspirin 81 MG Tablet Delayed Release [...] Tablet 1 tablet Orally Once a day Extra Depth Orthopedic Shoes (1 Pair) with Customized Heat Molded Multidensity Innersoles (3 Pair) as directed Dx: NIDDM/Polyneuropathy (E11.42), Hammertoe Foot Deformity (M20.41,M20.42), Preulcerative Skin Lesion(s) (L85.1 Taking Mounjaro Taking Famotidine Taking Aspirin 81 [...] 1 tablet Orally Once a day Taking Extra Depth Orthopedic Shoes (1 Pair) with Customized Heat Molded Multidensity Innersoles (3 Pair) as directed Dx: NIDDM/Polyneuropathy (E11.42), Hammertoe Foot Deformity (M20.41,M20.42), Preulcerative Skin Lesion(s) (L85.1 Not- Taking/PRNExtra Depth Diabetic Shoes with 3 Pair Custom [...] reviewed and reconciled with the patient * Allergies: N .K.D.A.yes[Allergies Verified] Objective: * Vitals: H t: 5ft 10in, Wt: 212, BMI: 30.42, Shoe size: 13, BS: 83, Ht-cm: 177.8 cm, Wt-k.16 kg. * P ast Orders: L ab:HEMOGLOBIN A1C (GLYCOHEMOGLOBIN) (Order Date - 06/19/2025) (Collection Date & Time - 06/20/2025 10:02 AM) Value Reference Range HEMOGLOBIN A1C % (HH) 6.5 * Examination: G eneral Examination: GENERAL APPEARANCE: R mikeeals a pleasant, alert, well nourished, well-developed, well hydrated individual, who demonstrates proper attention to hygiene/body habitus, and is in no acute distress, Pt serves as own historian for office visit today. ORIENTED: p erson, place, and time. FOOT EXAM: L ower Extremity Neurological Exam performed:?Yes V isual exam of foot performed: Y es D ate 1 12/03/2024 S ensory testing performed: s ensations diminished S ensory and motor testing performed: s trength normal P edal pulse taking performed: 1 + Footwear Evaluation F ootwear Evaluation performed: Y es O rthopedic: MUSCLE STRENGTH: 5 /5 all groups in a symmetrical fashion, B/L. DIGITAL DEFORMITIES: D igital contracture, PIPJ, 2-5 B/L, incompl-reducible to push-up test, no over, nor underlapping, t here is e vidence of shoe producing skin irritation. FOOTWEAR EVALUATION: w orn, non-supportive, shoe gear properties exacerbate patient's foot/toe deformity. V ascular: DP PULSES (B): 1 /4, B/L. PT PULSES (B): 1/4, B/L. CAPILLARY FILL TIME: 3 secs. per digit, B/L. TROPHIC CONDITION-TEXTURE/ELASTICITY/TURGOR/HAIR GROWTH (B):?normal, B/L. TEMPERTURE GRADIENT (C): w arm to cool, proximal to distal, B/L. PIGMENTATION: n ormal, B/L. EDEMA (C): n o edema, B/L. TELANGECTASIA: a bsent. VARICOSITIES: a bsent. N eurological: SENSORY: N eurological exam demonstrates reduced sharp/dull pin prick discrimination reduced light touch sensation reduced vibration sensation reduced proprioception sensation in a stocking fashion 5.07 monofilament test performed at plantar aspects of 5 varied sites per foot shows sensation plantar aspects absent at Forefoot B/L. N ails: NAILS are: E longated, overgrown, dystrophic, lytic, greater than 3mm thick, discolored and friable with crumbly malodorous subungual debris, with dull to no pain on palpation due to neuropathy, TA, T9, remaining nails are elongated, overgrown, dystrophic.? D ermatologic: SKIN FINDINGS: S kin exam reveals Keratotic lesion(s) located at sub 1st metatarsal head B/L. O phthalmology Referral: DIABETES EYE EXAM D iabetic Retinopathy Screening: Y es F indings of Diabetic Eye Exam: n o retinopathy Assessment: * Assessment: 1. O ther hammer toe(s) (acquired), right foot - M20.41 (Primary) S pecify :Chronic problem, Worse (4),Rx Management (4) 2 . O ther hammer toe(s) (acquired), left foot - M20.42 S pecify :Chronic problem, Worse (4),Rx Management (4) 3 . T ype 2 diabetes mellitus with diabetic polyneuropathy - E11.42 4 . T inea unguium - B35.1 Plan: * Treatment: 2. T ype 2 diabetes mellitus with diabetic polyneuropathy P rocedure: D8679-TEKXOCMO DYSTROPHIC NAILS ANY # P rocedure: 67669-ARZV SKIN LESIONS, 2 TO 4 P rocedure: 44789-JOZELXJ NAIL, 1-5 * Procedures: D ebride Nails 1-5: Procedure: P erformance of this nail treatment by a nonprofessional would put this patients foot and overall health at risk. Therefore, debridement to affected nail(s), as described in exam, was performed extensively to reduce/remove overall nail length, girth, thickness, subungual debris, and necrotic tissue, by manual and/or electrical means through the use of a nail nipper and/or dremel-type card grinder, to a more viable healthy nail plate or bed tissue 1-5. Silver nitrate used for any petechial bleeding as necessary. Definitive antifungal treatment options have been reviewed and discussed with the patient. The patient chooses, no pharmaceutical tx will apply over the counter C iclopirox gel 0.77 percent, - 81122. K eratoma Treatment: Parring or Cutting of Benign Hyperkeratotic Lesion(s) ( -56) 2-4 Lesions - The Benign hyperkeratotic lesions, as described in exam, were pared, and/or cut utilizing a sterile 15 blade, tissue nippers, and/or dremel - 86419. N ail Reduction: Nail Reduction ( -27) Trimming of dystrophic nails, as described in exam, was performed to reduce/remove overall nail length and girth, by manual and electrical means with use of a nail nipper and/or dremel, to more viable healthy nail plate or bed tissue, any number - G0127. * Procedure Codes: 1 1720 DEBRIDE NAIL, 1-5, Modifiers: XS G0127 TRIMMING DYSTROPHIC NAILS ANY #, Modifiers: XS 24220 TRIM SKIN LESIONS, 2 TO 4, Modifiers: XS * Preventive Medicine: Counseling: D iscussion: - 14: Office or other outpatient visit for the [...] have encouraged the patient to call the office. D igital Surgery: D igital surgery was discussed with the patient, We elected to try conservative treatment at the present time, due to the patients medical history and increased asssociated post-operative risks. D igital Treatment: H T- I explained to the patient the possible [...] success were answered to their verbally confirmed satisfaction. Krysta mora Gear Counseling: Krysta MORA Rx - The patient was counseled in [...] 3 pair of custom heat-molded inserts was dispensed. * Follow Up: 3 Months * Images: * Sign off status: Completed true * Provider: Alexandr Rojas DPM Date: 12/03/2024 Generated for Jolly thompson/Tamie/Tisha on: 12/04/2024 04:11 PM EST History and Physical Notes * [...] Visual exam of foot performed:: Yes Date: 10/03/2025 Sensory testing performed:: sensations d iminished Sensory and motor testing performed:: [facility] normal Pedal pulse taking performed:: 1+ ORIENTED: person, place, and t sasha Footwear [...]
--- NOTE | 2025-10-04 08:39 | MHC.PC.OV ---
Vital Signs 10/04/25 08:52 Height 5 ft 10 in Weight 217 lb 4 oz BMI 31.2 BP 104/50 L Blood Pressure Location Rt brachial Position Sitting Respiration 12 Pulse 90 Pulse Source Pulse Oximeter Temp 98.4 F Temp Source Oral Pulse Oximetry (%) 95 Oxygen Delivery Method Room Air Intake Visit Reasons: Annual PE/ f/u chronic conditions - see comments Intake Note: patient is scheduled for Annual physical and dm follow up Favor Maker Required: No Allergies lisinopril Allergy (Severe, Verified 10/04/25 08:48) Angioedema Medication List - Last Reconciled 10/04/25 by Poli Randolph MD aspirin (Adult Low Dose Aspirin) 81 mg PO DAILY atorvastatin 10 mg PO DAILY blood sugar diagnostic (NuPathe Ultra Test strips) daily As directed, 90 days blood-glucose sensor (SOLOMO TechnologyStyle Linda 3 Sensor device) As directed every 14 days famotidine 20 mg PO BEDTIME 90 days flash glucose scanning reader (FreeStyle Linda 14 Day [place]) As directed flash glucose scanning reader (FreeStyle Linda 14 Day [place]) As directed flash glucose sensor (FreeStyle Linda 14 Day Sensor kit) As directed. 28 days fluticasone propionate 50 mcg/actuation (Flonase Allergy Relief) 1 spray intranasal Q12H 30 days metformin ER 1,000 mg (2 x 500 mg) PO BID 90 days metronidazole 0.75% 1 appl topical BID 30 days miscellaneous medical supply Diabetic Shoes. Daily As directed. 999 days multivitamin 1 tab PO DAILY pen needle, diabetic Use 4 daily, As directed. Ninety day supply. tirzepatide (Mounjaro) 10 mg (0.5 mL) subcut QWEEK Tresiba FlexTouch U-200 (insulin degludec) 30 units (0.15 mL) subcut DAILY NS Tobacco use date assessed: 10/04/25 Fall risk assessment: No Falls in past year Last assessed Fall Risk: 10/04/25 Dental Screening Dental Screen Date: 10/04/25 Did you have a dental visit in the last 12 months?: No Did you have a dental problem in the last 6 months where you did not have access to dental care?: No Was dental information given to patient?: Yes HPI Annual PE/ f/u chronic conditions - see comments HPI Details 75 y/o male presents for a CPE with f/u labs and health maint. No recent labs to review. A1c today 10/04/25 6.3%. He is on Mounjaro 10mg,Tresiba 30 units, metformin 1000mg b.i.d. Pt notes he walks for exercise. Blood pressure today 104/50, 90p. Reports hearing changes. HPI Comments History of Present Illness Details Documentation assistance for Poli Randolph MD, was provided by Jose Elias Bryan,? Mac Operator on 10/04/2025 at 9:37 AM EST. I, Dr. Randolph, have read, observed, and verified documentation. [facility] Medical History Type 2 diabetes mellitus with insulin therapy Sleep apnea Diabetes Elevated cholesterol HTN (hypertension) GERD (gastroesophageal reflux disease) Encounter for screening Surgical History History of endoscopy Status post right foot surgery H/O colonoscopy (~02/12/23) History of appendectomy Family History Mother Lung cancer Social History Household Members: Spouse Housing: Condominium Alcohol intake: current Alcohol intake frequency: does not drink Patient Tobacco Use Status: Never used Tobacco e-Cigarette/Vaping Use: Never Used Second Hand Smoke Exposure: No service: No 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 1. Little interest or pleasure in doing things: not at all 2. Feeling down, depressed, or hopeless: not at all 3. Trouble falling or staying asleep, or sleeping too much: not at all 4. Feeling tired or having little energy: not at all 5. Poor appetite or overeating: not at all 6. Feeling bad about yourself - or that you are a failure or have let yourself or your family down: not at all 7. Trouble concentrating on things, such as reading the newspaper or watching television: not at all 8. Moving or speaking so slowly that other people could have noticed. Or the opposite - being so fidgety or restless that you have been moving around a lot more than usual: not at all 9. Thoughts that you would be better off or of hurting yourself in some way: not at all Total score: 0 Depression Screening Interpretation: Negative Depression Screening Done: Yes 47190 - PHQ-9 Billing: Yes Source: Developed by Drs. Adrian Limon, Kimberley Zavala, Ramon Mackay and colleagues, with an educational balaji from [employer]. Thrive Questionnaire Date Thrive assessed: 10/04/25 I am a: Patient What is your living situation today?: I have a steady place to live Within the past 12 months, did the food you bought not last and you didn't have the money to get more?: Never true Within the past 12 months, did you worry whether your food would run out before you got money to buy more?: Never true Do you have trouble paying for medicines?: No Do you have trouble getting transportation to medical appointments?: No Do you have trouble paying your heating and electricity bill?: No Do you have trouble taking care of your child, family member or friend?: No Do you have trouble with day-to-day activities such as bathing, preparing meals, shopping, managing finances, etc.?: No Are you currently unemployed and looking for a job?: No Are you interested in more education?: No Please select the resources that you would like help with: None Currently or been in a relationship where the following occur: No concerns reported THRIVE Score: 0 AUDIT C Alcohol Use Questionnaire (AUDIT-C) 1. How often do you have a drink containing alcohol?: Never Total Score: 0 Score Reviewed/Action Taken: Yes WILD-7 AMB Questionnaire WILD-7 Date WILD - 7 assessed: 10/04/25 Feeling nervous, anxious, or on edge: 0 = Not at all Not being able to stop or control worryin = Not at all Worrying too much about different things: 0 = Not at all Trouble relaxin = Not at all Being so restless that it is hard to sit still: 0 = Not at all Becoming easily annoyed or irritable: 0 = Not at all Feeling afraid as if something awful might happen: 0 = Not at all Total WILD-7 score (0-4 normal; 5-9 mild; 10-14 moderate; 15-21 severe): 0 Source: Developed by Drs. Adrian Limon, Kimberley Zavala, Ramon Mackay and colleagues, with an educational balaji from [employer]. WILD-7 Assessment Billing WILD-7 Assessment Tool: WILD-7 Assessment 42933 ACT Questionnaire In the past 4 weeks, how much of the time did your asthma keep you from getting as much done at work, school or at home?: None of the time During the past 4 weeks, how often have you had shortness of breath?: Not at all During the past 4 weeks, how often did your asthma symptoms wake you up at night or earlier than usual in the morning?: Not at all During the past 4 weeks, how often have you had to use your rescue inhaler or nebulizer medication?: Not at all How would you rate your asthma control during the past 4 weeks?: Completely controlled ACT Interpretation: Negative Score: 25 Review of Systems Const Denies chills, Denies fatigue, Denies fever(s), Denies headache(s) and Denies weakness Eyes Denies change in vision ENT Denies dizziness, Denies headache(s), Denies hearing loss, Denies nasal congestion, Denies sinus pain, Denies sinus pressure and Denies sore throat Card Denies chest pain, Denies lightheadedness, Denies dyspnea and Denies other (palpitations) Resp Denies cough, Denies dyspnea and Denies wheezing GI Denies abdominal pain, Denies melena, Denies hematochezia, Denies change in bowel habits, Denies dyspepsia and Denies nausea Denies hematuria and Denies dysuria Musc Denies abnormal gait, Denies myalgias, Denies arthralgias, Denies numbness and Denies tingling Skin/Breast Denies rash, Denies unusual bruising and Denies wounds Neuro Denies abnormal gait, Denies dizziness, Denies headache(s), Denies memory loss, Denies numbness, Denies Sensory deficit (Neuro), Denies tingling and Denies weakness Psych Denies anxiety, Denies depression and Denies memory loss Endo Denies cold intolerance, Denies fatigue, Denies heat intolerance, Denies polydipsia and Denies polyuria Alonso/Lymph Denies easy bleeding and Denies easy bruising Aller/Immun Denies wheezing Physical exam (Primary Care) Vital Signs: Last Vital Signs Temp 98.4 F 10/04/25 08:52 Pulse 90 10/04/25 08:52 Resp 12 10/04/25 08:52 BP 104/50 L 10/04/25 08:52 Pulse Ox 95 10/04/25 08:52 Oxygen Delivery Method Room Air 10/04/25 08:52 BMI result Body Mass Index 31.2 Tobacco/Smoking Status: Tobacco use Status Tobacco use date assessed 10/04/25 10/04/25 08:54 Patient Tobacco Use Status Never used Tobacco 10/04/25 08:39 e-Cigarette/Vaping Use Never Used 10/04/25 08:39 PHQ-9: PHQ-9 Score PHQ-9: Total score 0 10/04/25 09:37 Depression Screening Interpretation: Negative Thrive Assessment: Date of Thrive Assessment Date Thrive assessed 10/04/25 10/04/25 08:54 Currently or been in a relationship where the following occur: No concerns reported Const General: no acute distress, well developed, alert and awake Nutritional Appearance: well nourished Orientation/consciousness: patient oriented x3 HENMT Head: Yes normocephalic and Yes atraumatic Ears: hearing grossly normal bilaterally and TM's normal bilaterally General nose exam: Normal external nose present and Normal nares present Mouth: Normal oral and palatal mucosa present and moist mucous membranes Teeth and gingiva: dentition normal Throat: Yes posterior oropharynx normal Eyes General: appearance normal, both eyes and all related structures Pupils: Equal, round and reactive pupils present and Pupil accommodation reflex normal EOM: EOMs intact bilaterally Neck Neck: Yes normal visual inspection, Yes no lymphadenopathy and Yes trachea midline Thyroid: Thyroid normal Carotids: no bruits Lymphatic: no lymphadenopathy noted Chest Chest palpation & inspection: normal inspection of the chest Resp Effort & Inspection: normal respiratory effort Auscultation: clear to auscultation bilaterally Cardio Rate: regular rate Rhythm: regular rhythm Heart sounds: S1 normal heart sound present, S2 normal heart sound present, no gallops, no murmurs and no rubs Bruits: no abdominal aortic bruits and no carotid bruits GI Palpation (GI): No Abdominal aortic bruit present, Soft to palpation, nontender, No hepatosplenomegaly present and No Rebound tenderness present Auscultation: normal bowel sounds General: Yes no CVA tenderness Back/Spine/Pelvis Back: no CVA tenderness Cervical Spine: cervical ROM normal and No Cervical spine tenderness Thoracic/Lumbar Spine: thoraco-lumbar ROM normal, No pain with thoraco-lumbar ROM, No thoracic spinal tenderness and No lumbar spinal tenderness Skin Lesions: no lesions Rashes: no rashes Trauma: no lacerations or abrasions Wounds: no wounds Nails: normal Neuro General: patient oriented x3 Cranial nerves: Yes Equal, round and reactive pupils present Cognition (Neuro): normal cognition Gait exam (Neuro): Normal gait present Motor exam (neuro): 5/5 motor strength present throughout Sensory Exam: No Sensory deficit (Neuro) Deep tendon reflexes (DTR's): Right patellar reflex intensity grade: 2+ and Left patellar reflex intensity grade: 2+ Extrem General: Yes normal to inspection and No edema Psych Appearance: grossly normal Affect: normal affect Attitude: cooperative Thought process: Normal thought process present Results AMB Hemoglobin A1c AMB Hemoglobin A1c 6.3 % Last Edit by RODRIGO Lopez on 10/04/25 09:18 Results Reviewed Results Reviewed: Laboratory Last Values Hgb A1c (Clinic) 6.3 % (4.0-6.0) H 10/04/25 09:16 Coding Level of Care Code Est Pt Level 3 (78263) Est Pt Prev Care >65y(06695) Diagnoses Adult general medical exam Z00.00 Essential hypertension I10 Diabetes type 2, controlled E11.9 Screening for colon cancer Z12.11 Screening for prostate cancer Z12.5 Change in hearing H91.90 Additional Codes Asthma Control Questionnaire - ACT Interpretation: Negative ([id number]) WILD-7 Assessment Billing - WILD-7 Assessment Tool: WILD-7 Assessment 28045 ([id number]) PHQ-9 - 66360 - PHQ-9 Billing: Yes ([id number]) Assessment & Plan Assessment & Plan (1) Adult general medical exam: Code(s): Z00.00 - Encounter for general adult medical examination without abnormal findings Category: Medical Plan: 75-year-old male presents for complete physical exam Encouraged healthy diet with active lifestyle and plenty of exercise (2) Essential hypertension: Code(s): I10 - Essential (primary) hypertension Category: Medical Plan: Blood pressure is controlled. Goal is less than 140/90 Continue current medication (3) Diabetes type 2, controlled: Code(s): E11.9 - Type 2 diabetes mellitus without complications Category: Medical Plan: A1c improved from 6.7% to 6.3%. Controlled. Goal is less than 7% Continue current medication regimen Follow-up with endocrinology as recommended (4) Screening for colon cancer: Code(s): Z12.11 - Encounter for screening for malignant neoplasm of colon Category: Medical Plan: He is due for repeat colonoscopy in January 2027 Up-to-date (5) Screening for prostate cancer: Code(s): Z12.5 - Encounter for screening for malignant neoplasm of prostate Category: Medical Plan: Due for PSA Ordered Will follow-up on this at next visit (6) Change in hearing: Code(s): H91.90 - Unspecified hearing loss, unspecified ear Category: Medical Plan Patient notes worsening hearing/hearing changes despite amplification. He would like a referral to ENT Referred Orders: Orders Prostate Specific Antigen Scr Today Z12.5 - Encounter for screening for malignant neoplasm of prostate TSH reflex Free T4 Today Z00.00 - Encounter for general adult medical examination without abnormal findings Vitamin B12 and Folate Today E53.8 - Deficiency of other specified B group vitamins AMB Hemoglobin A1c Today E11.9 - Type 2 diabetes mellitus without complications, Z79.4 - oysterman (current) use of insulin Comprehensive [place]. Panel Fast Today Z00.00 - Encounter for general adult medical examination without abnormal findings Complete Blood Count Auto Diff Today Z00.00 - Encounter for general adult medical examination without abnormal findings Lipid Panel Today Z00.00 - Encounter for general adult medical examination without abnormal findings Microalbumin, Random (w Creat) Today I10 - Essential (primary) hypertension UA CC w/rflx Micro + Cult Today Z00.00 - Encounter for general adult medical examination without abnormal findings Vitamin D 25-OH Total Today E55.9 - Vitamin D deficiency, unspecified Referrals Ear/Nose/Throat Referral H91.90 - Unspecified hearing loss, unspecified ear
[2025-10-04 08:52] VITALS: BP 104/50; PULSE 90; RESP 12; TEMP 36.9; O2SAT 95; BMI 31.2
--- OUTSIDE RECORDS SUMMARY | 2025-10-04 16:12 | XMS_ITS | Patient Health Record ---
Author Organization [facility] Address [address] [place] [address] Care Team Providers Care Gravity Meter Operator Name Role Phone Poli Randolph MD Primary Care Provider Rochelle Escobedo Unavailable [phone] Alexandr Thayer Unavailable [phone] Allergies No Known Allergies Results Component Value Reference Range Notes HEMOGLOBIN A1C (GLYCOHEMOGLO BIN) Reviewed date:10/04/2024 08:23:49 AM Interpretation: Performing Lab: Notes/Report: TOTAL HEMOGLOBIN (HGBA1C) 6.6 HEMOGLOBIN A1C (GLYCOHEMOGLO BIN) Reviewed date:10/03/2025 10:03:25 AM Interpretation: Performing Lab: Notes/Report: HEMOGLOBIN A1C % (HH) 6.5 Reason For Referral No Information Medications Medication SIG (Take, Route, Frequency, Duration) Notes Start Date End Date Status Extra Depth Orthopedic Shoes (1 Pair) with Customized Heat Molded Multidensity Innersoles (3 Pair) as directed Dx: NIDDM/Polyneuropathy (E11.42), Hammertoe Foot Deformity (M20.41,M20.42), Preulcerative Skin Lesion(s) (L85.1 Active metFORMIN HCl 500 MG 1 tablet with a ronnie l Orally Once a day; Duration: 30 day(s) Active metroNIDAZOLE 250 MG 1 tablet Orally Thr ee times a day; Duration: 10 day(s) Active Multivitamin - 1 tablet Orally Once a day; Duration: 30 day(s) Active HumaLOG KwikPen 100 UNIT/ML Subcutaneous; Duration: 100 Active Lantus SoloStar 100 UNIT/ML Subcutaneous; Duration: 102 Active Atorvastatin Calcium 10 MG Oral; Duration: 90 Active Extra Depth Diabetic Shoes with 3 Pair Custom heat-molded multi-density innersoles for 1 year Dx: 09/23/2022 N ot-Taking Mounjaro Active Cephalexin 500 MG Oral; Duration: 4 Not-Taking Famotidine Active Cipro 750 MG 1 tablet Orally once a day; Duration: 14 days 09/02/2022 Not-Takin g Aspirin 81 MG 1 tablet Orally Once a day; Duration: 30 day(s) Active Social History Tobacco Use: Social History [...] Never (0 point) Points 1 Interpretation Negative Problems Problem Type SNOMED Code ICD Code Onset Dates Problem Status W/U Status Risk Notes Problem Acquired hammer toe of right foot ([id number] ) Other hammer toe(s) (acquired), right foot (M20.41) Active confirmed Problem Acquired hammer toe of left foot ([id number] ) Other hammer toe(s) (acquired), left foot (M20.42) Active confirmed Problem Polyneuropathy due to type 2 diabetes mellitus (115635399) Type 2 diabetes mellitus with diabetic polyneuropathy (E11.42) Active confirmed Vital Signs Height 5ft 10in in 10/03/2025 Weight 212 lbs 10/03/2025 BMI 30.42 kg/m2 10/03/2025 Procedures Procedure Date Ordered Date Performed Result Body Sit e 47448-[id number] NAIL, 1-5 10/04/2024 N/A 54034-VUHS SKIN LESIONS, 2 TO 4 10/04/2024 N/A [id number] DYSTROPHIC NAILS ANY # 10/04/2024 N/A 74720-[id number] NAIL, 1-5 10/03/2025 N/A 81883-ARLS SKIN LESIONS, 2 TO 4 10/03/2025 N/A [id number] DYSTROPHIC NAILS ANY # 10/03/2025 N/A Encounters Encounter Location Date Provider Diagnosis [address] [address] 10/04/2024 Rochelle Rojas Other hammer toe(s) (acquired), right foot M20.41 ; Other hammer toe(s) (acquired), left foot M20.42 ; Type 2 diabetes mellitus with diabetic polyneuropathy E11.42 and Tinea unguium B35.[address] [address] 10/03/2025 Rochelle Rojas Other hammer toe(s) (acquired), [...] (acquired), left foot (ICD-10 - M20.42) 10/03/2025 Other hammer toe(s) (acquired), right foot (ICD-10 - M20.41) Patient Educated with: DIABETIC FOOT CARE INSTRUCTIONS. pdf (DIABETIC FOOT CARE INSTRUCTIONS. pdf) 10/03/2025 Other hammer toe(s) (acquired), left foot (ICD-10 - M20.42) 10/03/2025 Type 2 diabetes mellitus with diabetic polyneuropathy (ICD-10 - E11.42) 10/04/2024 Type 2 diabetes mellitus with diabetic polyneuropathy (ICD-10 - E11.42) 10/04/2024 Tinea unguium (ICD-10 - B35.1) 10/03/2025 Tinea unguium (ICD-10 - B35.1) Plan Of Treatment Pending Test Test Name Order Date X ray : Foot, left 3V 09/02/2022 [id number] NAIL, 1-5 10/04/2024 [id number] NAIL, 1-5 10/03/2025 48727-YQTF SKIN LESIONS, 2 TO 4 10/03/20 25 87861-KKNY SKIN LESIONS, 2 TO 4 10/04/20 24 06824-XKKU SKIN LESIONS, 2 TO 4 09/29/20 23 [id number] DYSTROPHIC NAILS ANY # [id number] DYSTROPHIC NAILS ANY # L6769-QDDRPNYU DYSTROPHIC NAILS ANY # Next Appt Details Provider Name:Rochelle Holder dillon, 10/09/2026 10:00:00 AM, [address] [facility] [address], [place], [address], Insurance Providers Payer Name Payer Address Payer Phone Subscriber Number Group Number Insured Name Patient Relationship to Insured Coverage Start Date Coverage End Date [employer] Medicare Adv-[id number] [address] [address] [place] [address] [id number] Scott Moncada Self - patient is the insured Medical (General) History Medical History History ICD Code Broken bones Diabetes mellitus, Type II, without comp lications Chicken pox Joint implants/screws Gastroesophageal reflux disease (GERD) Hypertension Surgical History Surgery Date(Month/Year) appendectomy 1978 foot surgery 2006 Hospitalization History Reason Date(Month/Year) [facility]- inf wound 08/19/22
== END 2025-10-04 09:50 | disposition home or self-care (01) ==
LOC: HO.HMCFM 08:27
PROVIDERS: PCP Family Medicine; Visit Provider Family Medicine
DX: Z00.00 Encounter for general adult medical examination without abnormal findings (principal); E11.9 Type 2 diabetes mellitus without complications; Z79.4 Long term (current) use of insulin; I10 Essential (primary) hypertension; H91.93 Unspecified hearing loss, bilateral; Z12.5 Encounter for screening for malignant neoplasm of prostate

== ENCOUNTER → 2025-10-04 08:27 | Outpatient (BNVA) | payer MEDICARE, SELFPAY | PROVIDERS: PCP Family Medicine; Visit Provider Family Medicine | DX: Z00.00 Encounter for general adult medical examination without abnormal findings (principal); I10 Essential (primary) hypertension; E55.9 Vitamin D deficiency, unspecified; E53.8 Deficiency of other specified B group vitamins; Z13.31 Encounter for screening for depression; Z13.39 Encounter for screening examination for other mental health and behavioral disorders; Z71.9 Counseling, unspecified; E11.9 Type 2 diabetes mellitus without complications | CPT/HCPCS: 83036; 96127; 96160; 99397 ==